=== PATIENT | female | born 1940 | race Asian ===

== ENCOUNTER 2017-01-29 13:57 | Inpatient (IN) | payer MEDICARE, OTHER ==
[~2017-01-29] VITALS: Ht 144.8 cm; Wt 48.1 kg
[2017-01-29 16:00] VITALS: BP 170/63
[2017-01-29 16:40] VITALS: BP 170/63
--- NOTE | 2017-01-29 18:51 | HP ---
ADMIT DATE: 01/29/2017 CHIEF COMPLAINT: Mental status change, left-sided weakness. HISTORY OF PRESENT ILLNESS: The patient is a pleasant elderly female who speaks broken Kiswahili. Basically, she presented to the ER at [facility] with stroke symptoms. The ER physician called me. She does have extreme left-sided weakness. She is kind of compulsive. She is moving the right arm. I discussed the case with the ER physician. We are going to admit the patient as a direct admit here to our facility. She is currently examined in room 667. PAST MEDICAL HISTORY: Difficult to obtain. The patient really does not speak a lot. I have looked through the records, I do not see a lot. In fact, she has hypertension, hyperlipidemia, constipation. ALLERGIES: None. FAMILY HISTORY: Unknown. SOCIAL HISTORY: I think she facility. She does not drink, smoke or take drugs. MEDICATIONS: Reviewed, please refer to the MRAD. REVIEW OF SYSTEMS: Unobtainable, the patient is too confused. PHYSICAL EXAMINATION: VITAL SIGNS: Temperature afebrile, pulse 67, respirations 21, blood pressure 114/91. GENERAL: She is sleeping. She awakens, she starts moving the right side. She is kind of impulsive. HEART: Distant S1, S2. LUNGS: Clear. ABDOMEN: Soft. EXTREMITIES: No edema. The right hand is deformed. She only has the thumb, the other fingers appears to be amputated. ENDOCRINE: No thyromegaly. LYMPHATICS: No cervical nodes. HEMATOPOIETIC: No bruising. NEUROLOGICAL: She is impulsive. She is moving on the right side, but she does not move the left side. LABORATORY DATA: Pending. ASSESSMENT AND PLAN: Stroke. The patient has been admitted. We are consulting Neurology, Physical Therapy and Occupational Therapy. We will resume her home meds, cardiac monitoring, IV fluids, speech therapy, jail evaluation. ALF PROGNOSIS: Guarded. ROSA FOX DO DR: HANNY/manolo JOB#: [id number] / [id number]
[2017-01-29 19:51] VITALS: BP 168/61
[2017-01-29] MEDS ORDERED: ASPI325T4 PO (19:55)
[2017-01-29] MEDS ORDERED: AMLO10TA2 PO (19:55)
[2017-01-29] MEDS ORDERED: METO50TA2 PO (19:55)
[2017-01-29 23:16] VITALS: BP 169/62
[2017-01-30 02:57] VITALS: BP 165/66
[2017-01-30 07:00] VITALS: BP 131/65
[2017-01-30] MEDS: ASPIRIN 325 MG TABLET PO SCH (08:00)
--- NOTE | 2017-01-30 10:13 | PDOC2 ---
NEUROLOGY CONSULT Date of Admission Date of Admission DATE: 01/30/17 TIME: 10:06 Reason for Consult Reason for Consult: Stroke Referring Physician Referring Physician: Dr. Ng PCP: Dr. Henriquez Source Source: Caregiver, Chart review, Patient History of Present Illness History of Present Illness The patient is a 76-year-old right-handed female admitted for a stroke. She was brought into the [facility] emergency department. She was at [facility] last month with similar symptoms. She had generalized weakness. I reviewed the records. CT scan showed old infarcts. There was possibly a subacute left temporal infarct. Echocardiogram and carotid Dopplers were negative. She did not receive an MRI. According to her son, she at baseline gets around on her own , does not drive, needs help with finances, but otherwise is fairly independent. He doesn't think she has the cognitive problems. 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 There is no history of seizure or head injury. 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 Oophorectomy) Family History Family History: No pertinent hx Social History Social History , non-smoker, nondrinker Current Medications Current Medications Current Medications Aspirin (Geo Aspirin) 325 mg DAILYWBKFT PO Last administered on 01/30/17t 08: 00; Start 01/30/17 at 08:00 Active Scripts Active Reported Aspirin 325 Mg Tablet 1 Tab PO DAILY Metoprolol Tartrate 50 Mg Tablet 1 Tab PO DAILY Amlodipine Besylate 10 Mg Tablet 10 Mg PO DAILY Allergies Allergies: Coded Allergies: No Known Drug Allergies (Unverified , 01/29/17) ROS Review of System Negative for fevers, chills, weight loss, shortness of breath, chest pain, indigestion, hematochezia, melena, dysuria. Full 14-point review systems is negative. Physical Exam Physical Examination PHYSICAL EXAMINATION: Vital signs: see above. General appearance is normal and in no acute distress. HEENT: Normocephalic and nontraumatic. Eyes, nose, ears, and throat are unremarkable. Neck is supple. No lymphadenopathy. No bruits are heard over the carotid artery. No crepitus. Extremities: several digits missing from right-hand NEUROLOGIC: She can tell me her name, but not the date or location. She tends to perseverate. She has trouble with naming and repetition. Cranial nerve examination reveals full visual cabral to threat, equally reactive pupils, and intact extraocular movements. There is no facial asymmetry. Palate elevates and tongue protrudes in the midline. Reflexes are one plus with flexor plantar responses. There are bilateral grasps reflexes. She moves all extremities for me with normal tone and bulk. I see no asymmetry. She would not let me check her gait and was not cooperative with cerebellar testing. She reacts to pinprick in all 4 extremities. Vitals VITALS Vital Signs Date Time Temp Pulse Resp B/P Pulse Ox O2 Delivery O2 Flow Rate FiO2 01/30/17 07:00 97.5 81 18 131/65 93 Room Air 97.5 Images Images I reviewed records from [facility] CT head, 01/08:1. Old right temporoparietal and left basal ganglia region infarcts. 2. No acute intracranial abnormality is detected. Carotid Dopplers, 01/09, normal Echocardiogram, 01/09: LEFT VENTRICLE The left ventricle is normal size. There is normal left ventricular wall thickness. Left ventricle systolic function is normal. The Ejection Fraction is 65-70%. There is normal LV segmental wall motion. Tissue Doppler imaging reveals mild left ventricular diastolic dysfunction. RIGHT VENTRICLE The right ventricle is normal size. The right ventricular systolic function is normal. ATRIA The left atrium size is normal. The right atrium size is normal. The interatrial septum is intact with no evidence for an atrial septal defect or patent foramen ovale as noted on 2-D or Doppler imaging. AORTIC VALVE The aortic valve is mildly calcified. The aortic valve is trileaflet. Doppler and Color Flow revealed no significant aortic regurgitation. There is no significant aortic valvular stenosis. MITRAL VALVE Mitral annular calcification is mild. There is no mitral valve stenosis. Doppler and Color Flow revealed mild mitral regurgitation. TRICUSPID VALVE The tricuspid valve is normal in structure and function. Doppler and Color Flow revealed trace tricuspid regurgitation. The PA pressure was estimated at 17 mmHg. There is no tricuspid valve stenosis. PULMONIC VALVE The pulmonic valve is not well visualized. Doppler and Color Flow revealed no pulmonic valvular regurgitation. There is no pulmonic valvular stenosis. GREAT VESSELS The aortic root is normal in size. The ascending aorta is normal in size. Normal pulmonary venous flow (Doppler). The IVC is normal in size and collapses >50% with inspiration. PERICARDIAL EFFUSION There is no evidence of significant pericardial effusion.Critical NotificationCritical Value: No<Conclusion>Left ventricle systolic function is normal. The Ejection Fraction is 65-70%.There is normal LV segmental wall motion. CT head, 01/29: IMPRESSION: 1. Old right temporoparietal and left basal ganglia region infarcts. 2. New small deep white matter lucency in the left lateral occipital region is likely due to a subacute infarct. Vasogenic edema due to an occult underlying neoplasm or infectious process is less likely. 3. No evidence of acute intracranial hemorrhage Assessment/Plan Assessment/Plan Impression: Examination is non-focal, but is concerning for dementia although the son says this is an acute change. 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 Central nervous system infection and ongoing epileptic seizure activity is much less likely. There are no obvious metabolic derangements. Recommendations: No need to repeat previous tests Brain MRI Laboratory studies Rehabilitation modalities I discussed my findings with the patient's son. Thank you for letting me help with the patient's care. YFN MADDOX MD Jan 30, 2017 10:13
[2017-01-30 10:44] VITALS: BP 129/74
[2017-01-30 11:15] LABS: BASO # 0.1 x10^3/uL (0.0-0.2); BASO % 1 % (0-3); EOS % 2 % (0-3); HEMATOCRIT 35.6 % (36.0-47.0); HEMOGLOBIN 11.9 g/dL (12.0-15.5); LYMPH # 1.7 x10^3/uL (1.0-4.8); LYMPH % 20 % (24-48); MEAN CORPUSCULAR HEMOGLOBIN 27 pg (25-35); MEAN CORPUSCULAR HGB CONC 34 g/dL (31-37); MEAN CORPUSCULAR VOLUME 81 fL (79-100); MONO % 5 % (0-9); NEUT % 72 % (31-73); PLATELET COUNT 300 x10^3/uL (140-400); RED BLOOD COUNT 4.39 x10^6/uL (3.50-5.40); RED CELL DISTRIBUTION WIDTH 14.1 % (11.5-14.5); WHITE BLOOD COUNT 8.8 x10^3/uL (4.0-11.0)
--- NOTE | 2017-01-30 11:25 | PDOC ---
PROGRESS NOTES Chief Complaint Chief Complaint A/P Acute mental state changes, seizures vs CVA vs Dementia Plan MRI pending PT/OT NPO Neurology following work up at [place] results reviewed. History of Present Illness History of Present Illness seen with PT not following commands confused. Vitals Vitals Vital Signs Date Time Temp Pulse Resp B/P Pulse Ox O2 Delivery O2 Flow Rate FiO2 01/30/17 10:44 97.6 80 18 129/74 92 Room Air 97.6 Physical Exam General: Alert, Other (non coopertive) Heart: Normal S1, Normal S2 Lungs: Clear Abdomen: Normal bowel sounds Labs LABS Laboratory Tests Test 01/30/17 10:40 White Blood Count 8.8x10^3/uL (4.0-11.0) Red Blood Count 4.39x10^6/uL (3.50-5.40) Hemoglobin 11.9g/dL (12.0-15.5) Hematocrit 35.6% (36.0-47.0) Mean Corpuscular Volume 81fL (79-100) Mean Corpuscular Hemoglobin 27pg (25-35) Mean Corpuscular Hemoglobin Concent 34g/dL (31-37) Red Cell Distribution Width 14.1% (11.5-14.5) Platelet Count 300x10^3/uL (140-400) Neutrophils (%) (Auto) 72% (31-73) Lymphocytes (%) (Auto) 20% (24-48) Monocytes (%) (Auto) 5% (0-9) Eosinophils (%) (Auto) 2% (0-3) Basophils (%) (Auto) 1% (0-3) Neutrophils # (Auto) 6.4x10^3uL (1.8-7.7) Lymphocytes # (Auto) 1.7x10^3/uL (1.0-4.8) Monocytes # (Auto) 0.5x10^3/uL (0.0-1.1) Eosinophils # (Auto) 0.2x10^3/uL (0.0-0.7) Basophils # (Auto) 0.1x10^3/uL (0.0-0.2) Comment Review of Relevant I have reviewed the following items jayashree (where applicable) has been applied. Labs Laboratory Tests Test 01/30/17 10:40 White Blood Count 8.8x10^3/uL (4.0-11.0) Red Blood Count 4.39x10^6/uL (3.50-5.40) Hemoglobin 11.9g/dL (12.0-15.5) Hematocrit 35.6% (36.0-47.0) Mean Corpuscular Volume 81fL (79-100) Mean Corpuscular Hemoglobin 27pg (25-35) Mean Corpuscular Hemoglobin Concent 34g/dL (31-37) Red Cell Distribution Width 14.1% (11.5-14.5) Platelet Count 300x10^3/uL (140-400) Neutrophils (%) (Auto) 72% (31-73) Lymphocytes (%) (Auto) 20% (24-48) Monocytes (%) (Auto) 5% (0-9) Eosinophils (%) (Auto) 2% (0-3) Basophils (%) (Auto) 1% (0-3) Neutrophils # (Auto) 6.4x10^3uL (1.8-7.7) Lymphocytes # (Auto) 1.7x10^3/uL (1.0-4.8) Monocytes # (Auto) 0.5x10^3/uL (0.0-1.1) Eosinophils # (Auto) 0.2x10^3/uL (0.0-0.7) Basophils # (Auto) 0.1x10^3/uL (0.0-0.2) Laboratory Tests Test 01/30/17 10:40 White Blood Count 8.8x10^3/uL (4.0-11.0) Red Blood Count 4.39x10^6/uL (3.50-5.40) Hemoglobin 11.9g/dL (12.0-15.5) Hematocrit 35.6% (36.0-47.0) Mean Corpuscular Volume 81fL (79-100) Mean Corpuscular Hemoglobin 27pg (25-35) Mean Corpuscular Hemoglobin Concent 34g/dL (31-37) Red Cell Distribution Width 14.1% (11.5-14.5) Platelet Count 300x10^3/uL (140-400) Neutrophils (%) (Auto) 72% (31-73) Lymphocytes (%) (Auto) 20% (24-48) Monocytes (%) (Auto) 5% (0-9) Eosinophils (%) (Auto) 2% (0-3) Basophils (%) (Auto) 1% (0-3) Neutrophils # (Auto) 6.4x10^3uL (1.8-7.7) Lymphocytes # (Auto) 1.7x10^3/uL (1.0-4.8) Monocytes # (Auto) 0.5x10^3/uL (0.0-1.1) Eosinophils # (Auto) 0.2x10^3/uL (0.0-0.7) Basophils # (Auto) 0.1x10^3/uL (0.0-0.2) Medications Current Medications Aspirin ([employer]works Aspirin) 325 mg DAILYWBKFT PO Last administered on 01/30/17 08: 00; Start 01/30/17 at 08:00 Active Scripts Active Reported Aspirin 325 Mg Tablet 1 Tab PO DAILY Metoprolol Tartrate 50 Mg Tablet 1 Tab PO DAILY Amlodipine Besylate 10 Mg Tablet 10 Mg PO DAILY Vitals/I & O Vital Sign - Last 24 Hours 01/29/17 01/29/17 01/29/17 01/29/17 16:00 16:40 19:51 20:00 Temp 97.9 97.9 97.9 97.9 97.9 97.9 Pulse 75 75 68 Resp 18 18 20 B/P 170/63 170/63 168/61 Pulse Ox 94 94 97 O2 Delivery Room Air Room Air 01/29/17 01/30/17 01/30/17 01/30/17 23:16 02:57 07:00 10:44 Temp 98.2 97.9 97.5 97.6 98.2 97.9 97.5 97.6 Pulse 76 75 81 80 Resp 16 16 18 18 B/P 169/62 165/66 131/65 129/74 Pulse Ox 95 95 93 92 O2 Delivery Room Air Room Air Room Air Room Air Intake and Output 01/29/17 01/29/17 01/30/17 15:00 23:00 07:00 Intake Total 100 ml Balance 100 ml BERNA NGUYEN MD Jan 30, 2017 11:25
[2017-01-30 11:32] LABS: ALBUMIN/GLOBULIN RATIO 0.7 (1.0-1.7); CALCIUM 8.9 mg/dL (8.5-10.1); CREATININE 1.5 mg/dL (0.6-1.0); GFR 33.8; POTASSIUM 3.5 mmol/L (3.5-5.1); TOTAL BILIRUBIN 0.4 mg/dL (0.2-1.0); TOTAL PROTEIN 7.1 g/dL (6.4-8.2)
[2017-01-30 11:55] LABS: FOLATE 11.63 ng/ml (3.2-20.0)
--- NOTE | 2017-01-30 13:13 | RAD ---
PROCEDURE MRI brain without contrast. HISTORY Altered mental status, weakness TECHNIQUE Multiplanar, multi sequential, non contrast MR imaging was performed of the brain. COMPARISON No previous similar exam available. FINDINGS There is motion degradation. There is fairly large focus of restricted diffusion of the left temporal lobe on the order of approximately 3 centimeters, a few other adjacent smaller foci present. There is also a long linear focus of restricted diffusion of the right frontal lobe on the order of 4.7 centimeters AP. There is separate tiny focus of restricted diffusion of the right parietal white matter. There is T2 and FLAIR hyperintense signal abnormality associated with the sites of restricted diffusion. There is no restricted diffusion of the posterior fossa. Ventricular size is stable. There is no midline shift or extra-axial fluid collection. There is a large area of encephalomalacia of the right parietal temporal lobes with cortical involvement, associated gliosis signified by T2 and FLAIR hyperintense signal abnormality. There is no significant hemosiderin deposition of the brain parenchyma. There is old large old infarct of the left basal ganglia with associated gliosis, tiny focus more posteriorly. There is other scattered mild T2 and FLAIR hyperintense signal abnormality of the supratentorial white matter bilaterally. There is small focus of hemosiderin deposition of the right basal ganglia, also tiny focus on the left. There is preservation of the major arterial intracranial flow voids at the skull base other than tiny caliber left vertebral artery flow void. There has been lens surgery bilaterally. There is very minimal left maxillary sinus mucosal thickening, also minimally of the right sphenoid sinus. Frontal sinus is not pneumatized. Mastoid air cells are not significantly pneumatized. Cerebellar tonsils are normal in location. There is adequate preservation of marrow signal of the clivus. There is no significant abnormality of the pineal gland or pituitary gland IMPRESSION 1. There are recent, likely early subacute infarcts of the right frontal lobe and also centered in the left temporal lobe. Critical results were called to patient's nurse Amaris January 30, 2017 at 13:09, to inform doctor of findings. Given bilateral involvement, embolic source should be considered. 2. There is a large old infarct of the right parietal temporal lobes with associated gliosis, cortical involvement. There is also large old infarct of the left basal ganglia. Other scattered T2 and FLAIR hyperintense signal abnormality of the supratentorial white matter is nonspecific although probably due to chronic microvascular ischemic disease. Electronically signed by: Mike Barrera MD (Jan 30, 2017 13:11:14)
[2017-01-30 14:55] VITALS: BP 119/62
[2017-01-30] MEDS: IV NORMAL SALINE 1000ML BAG 1,000 ML IV SCH (15:00)
[2017-01-30] MEDS ORDERED: LIDOCAINE 2% VISCOUS 15 ML SOLUTION. MM ONE (15:15)
[2017-01-30] MEDS ORDERED: 0.9 % SODIUM CHLORIDE 10 ML DISP.SYRIN. IV PRN (15:15)
[2017-01-30] MEDS ORDERED: LIDOCAINE 2% TOPICAL JELLY 5GM TUBE. TP ONE (15:15)
[2017-01-30] MEDS ORDERED: BENZOCAINE ONE 20% MUCOSAL SPRAY. MM (15:15)
--- NOTE | 2017-01-30 18:45 | PDOC ---
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 Due to cognitive impairment, discussed indication along with risk/benefits with sonAntonio. Is agreeable to proceed. Attempted to contact [facility] nascimento but unable to reach. Will proceed with IRENE in am. ANNALISE GARAY APRN Jan 30, 2017 18:45
[2017-01-30 19:35] VITALS: BP 164/52
[2017-01-30 23:45] VITALS: BP 156/41
[2017-01-31] VITALS (15 sets, daily range): BP systolic 129–188; BP diastolic 60–77
[2017-01-31] MEDS: IV NORMAL SALINE 1000ML BAG 1,000 ML IV SCH ×3 (05:03→23:50)
[2017-01-31 05:32] LABS: CHOLESTEROL/HDL RATIO 3.7
[2017-01-31] MEDS ORDERED: LIDOCAINE 2% TOPICAL JELLY 5GM TUBE. TP ONE (06:00)
[2017-01-31] MEDS ORDERED: LIDOCAINE 2% VISCOUS 15 ML SOLUTION. MM ONE (06:00)
[2017-01-31] MEDS ORDERED: BENZOCAINE ONE 20% MUCOSAL SPRAY. MM (06:00)
[2017-01-31] MEDS: ASPIRIN 325 MG TABLET PO SCH (08:00)
--- NOTE | 2017-01-31 11:24 | PDOC ---
PROGRESS NOTES Chief Complaint Chief Complaint A/P Multiple subacute infarcts right frontal lobe and left temporal lobe. Physical Debility due to above Vascular Dementia worsening. Accelerate HTN Plan IV hydralazine Metoprolol BID PT/OT IRENE today Aspirin SW consult for placement PT/OT speech and swallow Evaluation neurology and cardiology following prognosis poor/guarded. History of Present Illness History of Present Illness lying on bed able to swallow food no acute events. IRENE Today Vitals Vitals Vital Signs Date Time Temp Pulse Resp B/P Pulse Ox O2 Delivery O2 Flow Rate FiO2 01/31/17 11:15 98.1 80 18 166/60 99 Room Air 98.1 Physical Exam General: Alert, Other (alert, able to answer for few questions. ) Heart: Regular rate, Normal S1, Normal S2 Lungs: Clear Abdomen: Normal bowel sounds Extremities: No clubbing, No edema Labs LABS Laboratory Tests Test 01/31/17 04:50 Triglycerides Level 114mg/dL (0-150) Cholesterol Level 210mg/dL (0-200) LDL Cholesterol, Calculated 130mg/dL (0-100) VLDL Cholesterol, Calculated 23mg/dL (0-40) HDL Cholesterol 57mg/dL (40-60) Cholesterol/HDL Ratio 3.7 Comment Review of Relevant I have reviewed the following items jayashree (where applicable) has been applied. Labs Laboratory Tests Test 01/30/17 10:40 01/31/17 04:50 White Blood Count 8.8x10^3/uL (4.0-11.0) Red Blood Count 4.39x10^6/uL (3.50-5.40) Hemoglobin 11.9g/dL (12.0-15.5) Hematocrit 35.6% (36.0-47.0) Mean Corpuscular Volume 81fL (79-100) Mean Corpuscular Hemoglobin 27pg (25-35) Mean Corpuscular Hemoglobin Concent 34g/dL (31-37) Red Cell Distribution Width 14.1% (11.5-14.5) Platelet Count 300x10^3/uL (140-400) Neutrophils (%) (Auto) 72% (31-73) Lymphocytes (%) (Auto) 20% (24-48) Monocytes (%) (Auto) 5% (0-9) Eosinophils (%) (Auto) 2% (0-3) Basophils (%) (Auto) 1% (0-3) Neutrophils # (Auto) 6.4x10^3uL (1.8-7.7) Lymphocytes # (Auto) 1.7x10^3/uL (1.0-4.8) Monocytes # (Auto) 0.5x10^3/uL (0.0-1.1) Eosinophils # (Auto) 0.2x10^3/uL (0.0-0.7) Basophils # (Auto) 0.1x10^3/uL (0.0-0.2) Erythrocyte Sedimentation Rate 41 (0-25) Sodium Level 144mmol/L (136-145) Potassium Level 3.5mmol/L (3.5-5.1) Chloride Level 107mmol/L (98-107) Carbon Dioxide Level 27mmol/L (21-32) Anion Gap 10 (6-14) Blood Urea Nitrogen 18mg/dL (7-20) Creatinine 1.5mg/dL (0.6-1.0) Estimated GFR (Cockcroft-Gault) 33.8 BUN/Creatinine Ratio 12 (6-20) Glucose Level 142mg/dL (70-99) Calcium Level 8.9mg/dL (8.5-10.1) Total Bilirubin 0.4mg/dL (0.2-1.0) Aspartate Amino Transf (AST/SGOT) 21U/L (15-37) Alanine Aminotransferase (ALT/SGPT) 15U/L (14-59) Alkaline Phosphatase 92U/L (46-116) Total Protein 7.1g/dL (6.4-8.2) Albumin 3.0g/dL (3.4-5.0) Albumin/Globulin Ratio 0.7 (1.0-1.7) Vitamin B12 Level 469pg/mL (247-911) Serum Folate 11.63ng/ml (3.2-20.0) Triglycerides Level 114mg/dL (0-150) Cholesterol Level 210mg/dL (0-200) LDL Cholesterol, Calculated 130mg/dL (0-100) VLDL Cholesterol, Calculated 23mg/dL (0-40) HDL Cholesterol 57mg/dL (40-60) Cholesterol/HDL Ratio 3.7 Laboratory Tests Test 01/31/17 04:50 Triglycerides Level 114mg/dL (0-150) Cholesterol Level 210mg/dL (0-200) LDL Cholesterol, Calculated 130mg/dL (0-100) VLDL Cholesterol, Calculated 23mg/dL (0-40) HDL Cholesterol 57mg/dL (40-60) Cholesterol/HDL Ratio 3.7 Medications Current Medications Aspirin 325 mg 325 mg DAILYWBKFT PO Last administered on 01/30/17 08:00; Start 01/30/17 at 08:00 Sodium Chloride (Iv Sodium Chloride 0.9% 1000ml Bag) 1,000 ml @ 75 mls/hr [id number] IV Last administered on 01/31/17 05:03; Start 01/30/17 at 15:00 Sodium Chloride (Normal Saline Flush) 10 ml QSHIFT PRN IV AFTER MEDS AND BLOOD DRAWS; Start 01/30/17 at 15:15 Lidocaine HCl (Xylocaine 2% Topical 5gm Tube) 1 braydon 1X ONCE TP ; Start at 15:15; Stop 01/30/17 at 15:16; Status DC Lidocaine HCl (Viscous Lidocaine) 15 ml 1X ONCE MM ; Start 01/30/17 at 15:15; Stop 01/30/17 at 15:16; Status DC Benzocaine (Hurricaine One) 1 spray 1X ONCE MM ; Start 01/30/17 at 15:15; Stop 01/30/17 at 15:16; Status DC Lidocaine HCl (Xylocaine 2% Topical 5gm Tube) 1 braydon 1X ONCE TP ; Start at 06:00; Stop 01/31/17 at 06:01; Status DC Lidocaine HCl (Viscous Lidocaine) 15 ml 1X ONCE MM ; Start 01/31/17 at 06:00; Stop 01/31/17 at 06:01; Status DC Benzocaine (Hurricaine One) 1 spray 1X ONCE MM ; Start 01/31/17 at 06:00; Stop 01/31/17 at 06:01; Status DC Active Scripts Active Reported Aspirin 325 Mg Tablet 1 Tab PO DAILY Metoprolol Tartrate 50 Mg Tablet 1 Tab PO DAILY Amlodipine Besylate 10 Mg Tablet 10 Mg PO DAILY Vitals/I & O Vital Sign - Last 24 Hours 01/30/17 01/30/17 01/30/17 01/30/17 14:55 19:35 20:00 23:45 Temp 99.7 98.1 97.7 99.7 98.1 97.7 Pulse 80 63 66 Resp B/P 119/62 164/52 156/41 Pulse Ox 97 96 96 O2 Delivery Room Air Room Air Room Air Room Air 01/31/17 01/31/17 01/31/17 01/31/17 03:45 07:58 08:00 11:15 Temp 98.1 97.7 98.1 98.1 97.7 98.1 Pulse 76 74 80 Resp B/P 145/67 179/73 166/60 Pulse Ox 96 96 99 O2 Delivery Room Air Room Air Room Air Room Air Intake and Output 01/30/17 01/30/17 01/31/17 15:00 23:00 07:00 Intake Total 250 ml Output Total 400 ml Balance -150 ml BERNA NGUYEN MD Jan 31, 2017 11:24
--- NOTE | 2017-01-31 12:01 | PDOC ---
PROGRESS NOTES Assessment Multiple subacute strokes, leading to [id number] state. Cardiac emboli suspected. Plan I ordered a transesophageal echocardiogram No need to repeat prior studies done last month Rehabilitation modalities Aspirin for now Subjective No complaints Objective Vital Signs Date Time Temp Pulse Resp B/P Pulse Ox O2 Delivery O2 Flow Rate FiO2 01/31/17 11:15 98.1 80 18 166/60 99 Room Air 98.1 Intake and Output 01/31/17 07:00 Intake Total 250 ml Output Total 400 ml Balance -150 ml Intake Oral 250 ml Output Urine Total 400 ml # Voids 4 PHYSICAL EXAM Alert. Knows her name, has aphasia PERRL. EOMI. CN: no focal findings. Muscle tone: normal. Muscle strength: 4/5 DTR: 1+ Plantar reflex: flexor Gait: not examined in bed. Sensory exam: no abnormal findings. No cerebellar signs elicited. Review of Relevant I have reviewed the following items jayashree (where applicable) has been applied. Labs Laboratory Tests Test 01/30/17 10:40 01/31/17 04:50 White Blood Count 8.8x10^3/uL (4.0-11.0) Red Blood Count 4.39x10^6/uL (3.50-5.40) Hemoglobin 11.9g/dL (12.0-15.5) Hematocrit 35.6% (36.0-47.0) Mean Corpuscular Volume 81fL (79-100) Mean Corpuscular Hemoglobin 27pg (25-35) Mean Corpuscular Hemoglobin Concent 34g/dL (31-37) Red Cell Distribution Width 14.1% (11.5-14.5) Platelet Count 300x10^3/uL (140-400) Neutrophils (%) (Auto) 72% (31-73) Lymphocytes (%) (Auto) 20% (24-48) Monocytes (%) (Auto) 5% (0-9) Eosinophils (%) (Auto) 2% (0-3) Basophils (%) (Auto) 1% (0-3) Neutrophils # (Auto) 6.4x10^3uL (1.8-7.7) Lymphocytes # (Auto) 1.7x10^3/uL (1.0-4.8) Monocytes # (Auto) 0.5x10^3/uL (0.0-1.1) Eosinophils # (Auto) 0.2x10^3/uL (0.0-0.7) Basophils # (Auto) 0.1x10^3/uL (0.0-0.2) Erythrocyte Sedimentation Rate 41 (0-25) Sodium Level 144mmol/L (136-145) Potassium Level 3.5mmol/L (3.5-5.1) Chloride Level 107mmol/L (98-107) Carbon Dioxide Level 27mmol/L (21-32) Anion Gap 10 (6-14) Blood Urea Nitrogen 18mg/dL (7-20) Creatinine 1.5mg/dL (0.6-1.0) Estimated GFR (Cockcroft-Gault) 33.8 BUN/Creatinine Ratio 12 (6-20) Glucose Level 142mg/dL (70-99) Calcium Level 8.9mg/dL (8.5-10.1) Total Bilirubin 0.4mg/dL (0.2-1.0) Aspartate Amino Transf (AST/SGOT) 21U/L (15-37) Alanine Aminotransferase (ALT/SGPT) 15U/L (14-59) Alkaline Phosphatase 92U/L (46-116) Total Protein 7.1g/dL (6.4-8.2) Albumin 3.0g/dL (3.4-5.0) Albumin/Globulin Ratio 0.7 (1.0-1.7) Vitamin B12 Level 469pg/mL (247-911) Serum Folate 11.63ng/ml (3.2-20.0) Triglycerides Level 114mg/dL (0-150) Cholesterol Level 210mg/dL (0-200) LDL Cholesterol, Calculated 130mg/dL (0-100) VLDL Cholesterol, Calculated 23mg/dL (0-40) HDL Cholesterol 57mg/dL (40-60) Cholesterol/HDL Ratio 3.7 Laboratory Tests Test 01/31/17 04:50 Triglycerides Level 114mg/dL (0-150) Cholesterol Level 210mg/dL (0-200) LDL Cholesterol, Calculated 130mg/dL (0-100) VLDL Cholesterol, Calculated 23mg/dL (0-40) HDL Cholesterol 57mg/dL (40-60) Cholesterol/HDL Ratio 3.7 Medications Current Medications Aspirin 325 mg 325 mg [id number] PO Last administered on 01/30/17 08:00; Start 01/30/17 at 08:00 Sodium Chloride (Iv Sodium Chloride 0.9% 1000ml Bag) 1,000 ml @ 75 mls/hr [id number] IV Last administered on 01/31/17 05:03; Start 01/30/17 at 15:00 Sodium Chloride (Normal Saline Flush) 10 ml QSHIFT PRN IV AFTER MEDS AND BLOOD DRAWS; Start 01/30/17 at 15:15 Lidocaine HCl (Xylocaine 2% Topical 5gm Tube) 1 braydon 1X ONCE TP ; Start at 15:15; Stop 01/30/17 at 15:16; Status DC Lidocaine HCl (Viscous Lidocaine) 15 ml 1X ONCE MM ; Start 01/30/17 at 15:15; Stop 01/30/17 at 15:16; Status DC Benzocaine (Hurricaine One) 1 spray 1X ONCE MM ; Start 01/30/17 at 15:15; Stop 01/30/17 at 15:16; Status DC Lidocaine HCl (Xylocaine 2% Topical 5gm Tube) 1 braydon 1X ONCE TP ; Start at 06:00; Stop 01/31/17 at 06:01; Status DC Lidocaine HCl (Viscous Lidocaine) 15 ml 1X ONCE MM ; Start 01/31/17 at 06:00; Stop 01/31/17 at 06:01; Status DC Benzocaine (Hurricaine One) 1 spray 1X ONCE MM ; Start 01/31/17 at 06:00; Stop 01/31/17 at 06:01; Status DC Active Scripts Active Reported Aspirin 325 Mg Tablet 1 Tab PO DAILY Metoprolol Tartrate 50 Mg Tablet 1 Tab PO DAILY Amlodipine Besylate 10 Mg Tablet 10 Mg PO DAILY Vitals/I & O Vital Sign - Last 24 Hours 01/30/17 01/30/17 01/30/17 01/30/17 14:55 19:35 20:00 23:45 Temp 99.7 98.1 97.7 99.7 98.1 97.7 Pulse 80 63 66 Resp 18 16 16 B/P 119/62 164/52 156/41 Pulse Ox 97 96 96 O2 Delivery Room Air Room Air Room Air Room Air 01/31/17 01/31/17 01/31/17 01/31/17 03:45 07:58 08:00 11:15 Temp 98.1 97.7 98.1 98.1 97.7 98.1 Pulse 76 74 80 Resp 16 16 18 B/P 145/67 179/73 166/60 Pulse Ox 96 96 99 O2 Delivery Room Air Room Air Room Air Room Air Intake and Output 01/30/17 01/30/17 01/31/17 15:00 23:00 07:00 Intake Total 250 ml Output Total 400 ml Balance -150 ml Images Brain MRI: FINDINGS There is motion degradation. There is fairly large focus of restricted diffusion of the left temporal lobe on the order of approximately 3 centimeters, a few other adjacent smaller foci present. There is also a long linear focus of restricted diffusion of the right frontal lobe on the order of 4.7 centimeters AP. There is separate tiny focus of restricted diffusion of the right parietal white matter. There is T2 and FLAIR hyperintense signal abnormality associated with the sites of restricted diffusion. There is no restricted diffusion of the posterior fossa. Ventricular size is stable. There is no midline shift or extra-axial fluid collection. There is a large area of encephalomalacia of the right parietal temporal lobes with cortical involvement, associated gliosis signified by T2 and FLAIR hyperintense signal abnormality. There is no significant hemosiderin deposition of the brain parenchyma. There is old large old infarct of the left basal ganglia with associated gliosis, tiny focus more posteriorly. There is other scattered mild T2 and FLAIR hyperintense signal abnormality of the supratentorial white matter bilaterally. There is small focus of hemosiderin deposition of the right basal ganglia, also tiny focus on the left. There is preservation of the major arterial intracranial flow voids at the skull base other than tiny caliber left vertebral artery flow void. There has been lens surgery bilaterally. There is very minimal left maxillary sinus mucosal thickening, also minimally of the right sphenoid sinus. Frontal sinus is not pneumatized. Mastoid air cells are not significantly pneumatized. Cerebellar tonsils are normal in location. There is adequate preservation of marrow signal of the clivus. There is no significant abnormality of the pineal gland or pituitary gland IMPRESSION 1. There are recent, likely early subacute infarcts of the right frontal lobe and also centered in the left temporal lobe. Critical results were called to patient's nurse Amaris January 30, 2017 at 13:09, to inform doctor of findings. Given bilateral involvement, embolic source should be considered. 2. There is a large old infarct of the right parietal temporal lobes with associated gliosis, cortical involvement. There is also large old infarct of the left basal ganglia. Other scattered T2 and FLAIR hyperintense signal abnormality of the supratentorial white matter is nonspecific although probably due to chronic microvascular ischemic disease. YFN MADDOX MD Jan 31, 2017 12:01
[2017-01-31] MEDS ORDERED: BENZOCAINE ONE 20% MUCOSAL SPRAY. (13:32)
[2017-01-31] MEDS ORDERED: LIDOCAINE 2% VISCOUS 15 ML SOLUTION. ONE (13:32)
[2017-01-31] MEDS ORDERED: LIDOCAINE 2% TOPICAL JELLY 30GM TUBE. TP ONE (13:33)
[2017-01-31] MEDS: IV RINGERS,LACTATED 1000ML 1,000 ML IV SCH ×2 (14:00→23:50)
[2017-01-31] MEDS: hydrALAZINE 20 MG/ML VIAL. IVP PRN (15:38)
[2017-01-31] MEDS ORDERED: METOPROLOL TART IMMED RELEASE 25 MG TABLET PO SCH ×2 (17:30→21:00)
--- NOTE | 2017-01-31 18:51 | CARD ---
APPROVED REPORT EXAM: Transesophageal echocardiogram with color flow Doppler. INDICATION CVA/TIA Echo Enhancing Agent Indication: Rule Out Septal Defect Agent/Amount Used: Agitated Saline 10mL Reason For Test : Rule out cardiac source of emboli. PROCEDURE After obtaining informed consent, patient underwent transesophageal echo in the PACU. Type of Sedation : General Anesthesia Sedation was provided by anesthesiologist, see EMR for medications administered. Transesophageal probe was inserted and advanced into esophagus by Amuary Acuña MD. Echo enhancement indication: R/O Septal defect. Echo enhancement agent administered: Agitated Saline The IRENE was performed without complications. Throughout the procedure, the blood pressure, pulse oximetry, cardiac rhythm, and rate were monitored . LEFT VENTRICLE The left ventricle is normal size. There is normal left ventricular wall thickness. Left ventricle sy stolic function is normal. The Ejection Fraction is 55-60%. There is normal LV segmental wall motion. RIGHT VENTRICLE The right ventricle is normal size. The right ventricular systolic function is normal. ATRIA The left atrium size is normal. The right atrium size is normal. The interatrial septum is intact wit h no evidence for an atrial septal defect or patent foramen ovale as noted on 2-D or Doppler imaging. Injection of bubbles documented no interatrial shunt. There is no thrombus noted in the left atrial appendage. AORTIC VALVE The aortic valve is normal in structure and function. The aortic valve is trileaflet. Doppler and Col or Flow revealed no significant aortic regurgitation. There is no significant aortic valvular stenosi s. MITRAL VALVE The mitral valve is normal in structure and function. There is no mitral valve stenosis. Doppler and Color Flow revealed mild mitral regurgitation. TRICUSPID VALVE The tricuspid valve is normal in structure and function. Doppler and Color Flow revealed no tricuspid valve regurgitation noted. There is no tricuspid valve stenosis. PULMONIC VALVE The pulmonary valve is normal in structure and function. Doppler and Color Flow revealed no pulmonic valvular regurgitation. There is no pulmonic valvular stenosis. GREAT VESSELS The aortic root is normal in size. The ascending aorta is normal in size. The IVC was visualized and appears normal in size. The SVC was visualized and appears normal in size. PERICARDIAL EFFUSION There is no evidence of significant pericardial effusion. There is no pleural effusion. Critical Notification Critical Value: No <Conclusion> Left ventricle systolic function is normal. The Ejection Fraction is 55-60%. The interatrial septum is intact with no evidence for an atrial septal defect or patent foramen ovale as noted on 2-D or Doppler imaging. Injection of bubbles documented no interatrial shunt. There is no thrombus noted in the left atrial appendage. No significant valvular disease.
[2017-01-31] MEDS ORDERED: METOPROLOL TART IMMED RELEASE 25 MG TABLET PO ONE (19:00)
[2017-02-01] VITALS (7 sets, daily range): BP systolic 112–190; BP diastolic 51–79
[2017-02-01] MEDS: hydrALAZINE 20 MG/ML VIAL. IVP PRN (05:10)
[2017-02-01] MEDS: ENOXAPARIN 30 MG/0.3 ML DISP.SYRIN. SQ SCH (10:01)
[2017-02-01] MEDS: ASPIRIN 325 MG TABLET PO SCH (10:01)
[2017-02-01] MEDS: METOPROLOL TART IMMED RELEASE 25 MG TABLET PO SCH ×2 (10:01→22:38)
--- NOTE | 2017-02-01 10:39 | PDOC ---
PROGRESS NOTES Chief Complaint Chief Complaint A/P Multiple subacute infarcts right frontal lobe and left temporal lobe. Physical Debility due to above Vascular Dementia worsening. Accelerate HTN Controlled. Plan IV hydralazine prn Metoprolol BID PT/OT IRENE no acute thrombus. Aspirin SW consult for placement PT/OT speech and swallow Evaluation neurology and cardiology following prognosis poor/guarded. History of Present Illness History of Present Illness lying on bed able to swallow food no acute events. IRENE Today Vitals Vitals Vital Signs Date Time Temp Pulse Resp B/P Pulse Ox O2 Delivery O2 Flow Rate FiO2 02/01/17 10:01 99 141/66 02/01/17 08:00 Room Air 02/01/17 07:00 97.8 18 95 97.8 01/31/17 14:08 2 Physical Exam General: Alert, Other (alert, able to answer for few questions. ) Heart: Regular rate, Normal S1, Normal S2 Lungs: Clear Abdomen: Normal bowel sounds Extremities: No clubbing, No edema Comment Review of Relevant I have reviewed the following items jayashree (where applicable) has been applied. Labs Laboratory Tests Test 01/30/17 10:40 01/31/17 04:50 White Blood Count 8.8x10^3/uL (4.0-11.0) Red Blood Count 4.39x10^6/uL (3.50-5.40) Hemoglobin 11.9g/dL (12.0-15.5) Hematocrit 35.6% (36.0-47.0) Mean Corpuscular Volume 81fL (79-100) Mean Corpuscular Hemoglobin 27pg (25-35) Mean Corpuscular Hemoglobin Concent 34g/dL (31-37) Red Cell Distribution Width 14.1% (11.5-14.5) Platelet Count 300x10^3/uL (140-400) Neutrophils (%) (Auto) 72% (31-73) Lymphocytes (%) (Auto) 20% (24-48) Monocytes (%) (Auto) 5% (0-9) Eosinophils (%) (Auto) 2% (0-3) Basophils (%) (Auto) 1% (0-3) Neutrophils # (Auto) 6.4x10^3uL (1.8-7.7) Lymphocytes # (Auto) 1.7x10^3/uL (1.0-4.8) Monocytes # (Auto) 0.5x10^3/uL (0.0-1.1) Eosinophils # (Auto) 0.2x10^3/uL (0.0-0.7) Basophils # (Auto) 0.1x10^3/uL (0.0-0.2) Erythrocyte Sedimentation Rate 41 (0-25) Sodium Level 144mmol/L (136-145) Potassium Level 3.5mmol/L (3.5-5.1) Chloride Level 107mmol/L (98-107) Carbon Dioxide Level 27mmol/L (21-32) Anion Gap 10 (6-14) Blood Urea Nitrogen 18mg/dL (7-20) Creatinine 1.5mg/dL (0.6-1.0) Estimated GFR (Cockcroft-Gault) 33.8 BUN/Creatinine Ratio 12 (6-20) Glucose Level 142mg/dL (70-99) Calcium Level 8.9mg/dL (8.5-10.1) Total Bilirubin 0.4mg/dL (0.2-1.0) Aspartate Amino Transf (AST/SGOT) 21U/L (15-37) Alanine Aminotransferase (ALT/SGPT) 15U/L (14-59) Alkaline Phosphatase 92U/L (46-116) Total Protein 7.1g/dL (6.4-8.2) Albumin 3.0g/dL (3.4-5.0) Albumin/Globulin Ratio 0.7 (1.0-1.7) Vitamin B12 Level 469pg/mL (247-911) Serum Folate 11.63ng/ml (3.2-20.0) Triglycerides Level 114mg/dL (0-150) Cholesterol Level 210mg/dL (0-200) LDL Cholesterol, Calculated 130mg/dL (0-100) VLDL Cholesterol, Calculated 23mg/dL (0-40) HDL Cholesterol 57mg/dL (40-60) Cholesterol/HDL Ratio 3.7 Medications Current Medications Aspirin 325 mg 325 mg [id number] PO Last administered on 02/01/17t 10:01; Start 01/30/17 at 08:00 Sodium Chloride (Iv Sodium Chloride 0.9% 1000ml Bag) 1,000 ml @ 75 mls/hr [id number] IV Last administered on 01/31/17 23:50; Start 01/30/17 at 15:00 Sodium Chloride (Normal Saline Flush) 10 ml QSHIFT PRN IV AFTER MEDS AND BLOOD DRAWS; Start 01/30/17 at 15:15 Lidocaine HCl (Xylocaine 2% Topical 5gm Tube) 1 braydon 1X ONCE TP Last administered on 01/30/17 13:56; Start 01/30/17 at 15:15; Stop 01/30/17 at 15:16 ; Status DC Lidocaine HCl (Viscous Lidocaine) 15 ml 1X ONCE MM Last administered on 13:56; Start 01/30/17 at 15:15; Stop 01/30/17 at 15:16; Status DC Benzocaine (Hurricaine One) 1 spray 1X ONCE MM Last administered on 01/30/17 13:56; Start 01/30/17 at 15:15; Stop 01/30/17 at 15:16; Status DC Lidocaine HCl (Xylocaine 2% Topical 5gm Tube) 1 braydon 1X ONCE TP ; Start at 06:00; Stop 01/31/17 at 06:01; Status DC Lidocaine HCl (Viscous Lidocaine) 15 ml 1X ONCE MM ; Start 01/31/17 at 06:00; Stop 01/31/17 at 06:01; Status DC Benzocaine (Hurricaine One) 1 spray 1X ONCE MM Last administered on 01/31/17 13:56; Start 01/31/17 at 06:00; Stop 01/31/17 at 06:01; Status DC Lidocaine HCl (Viscous Lidocaine) 15 ml STK-MED ONCE .ROUTE ; Start 01/31/17 at 13:32; Stop 01/31/17 at 13:33; Status DC Benzocaine (Hurricaine One) 1 spray STK-MED ONCE .ROUTE ; Start 01/31/17 at 13: 32; Stop 01/31/17 at 13:33; Status DC Lidocaine HCl 30 braydon 30 braydon STK-MED ONCE TP ; Start 01/31/17 at 13:33; Stop at 13:34; Status DC Lactated Ringer's (Iv Lactated Ringers) 1,000 ml @ 75 mls/hr [id number] IV Last administered on 01/31/17 14:00; Start 01/31/17 at 14:45 Hydralazine HCl (Apresoline) 10 mg PRN Q4HRS PRN IVP ELEVATED BP, SEE COMMENTS Last administered on 02/01/17 05:10; Start 01/31/17 at 15:30 Metoprolol Tartrate (Lopressor) 12.5 mg BID PO Last administered on 01/31/17 17:24; Start 01/31/17 at 17:30; Stop 01/31/17 at 18:29; Status DC Metoprolol Tartrate (Lopressor) 25 mg BID PO ; Start 01/31/17 at 21:00; Stop at 21:00; Status DC Metoprolol Tartrate (Lopressor) 12.5 mg 1X ONCE PO Last administered on 19:00; Start 01/31/17 at 19:00; Stop 01/31/17 at 19:01; Status DC Metoprolol Tartrate (Lopressor) 25 mg BID PO Last administered on 02/01/17 10: 01; Start 02/01/17 at 09:00 Enoxaparin Sodium (Lovenox 30mg Syringe) 30 mg Q24H SQ Last administered on 10:01; Start 02/01/17 at 10:00 Active Scripts Active Reported Aspirin 325 Mg Tablet 1 Tab PO DAILY Metoprolol Tartrate 50 Mg Tablet 1 Tab PO DAILY Amlodipine Besylate 10 Mg Tablet 10 Mg PO DAILY Vitals/I & O Vital Sign - Last 24 Hours 01/31/17 01/31/17 01/31/17 01/31/17 11:15 13:36 14:08 14:20 Temp 98.1 99.1 98.8 98.1 99.1 98.8 Pulse 80 76 66 Resp 18 14 14 B/P 166/60 196/72 193/79 Pulse Ox 99 99 98 O2 Delivery Room Air Room Air Nasal Cannula Room Air O2 Flow Rate 2 01/31/17 01/31/17 01/31/17 01/31/17 14:23 14:38 14:53 15:08 Temp 98.8 98.8 Pulse 74 76 82 83 Resp 16 B/P 186/95 203/69 205/77 186/77 Pulse Ox 98 99 96 96 O2 Delivery Room Air Room Air Room Air Room Air 01/31/17 01/31/17 01/31/17 01/31/17 15:31 15:38 15:41 15:45 Pulse 77 84 78 77 Resp 12 20 B/P 182/67 182/67 182/67 166/62 Pulse Ox 98 95 93 O2 Delivery Room Air Room Air 01/31/17 01/31/17 01/31/17 01/31/17 16:00 16:15 16:30 17:00 Pulse 88 88 87 84 Resp 20 20 B/P 172/66 129/64 177/69 179/67 Pulse Ox 95 98 95 O2 Delivery Room Air Room Air 01/31/17 01/31/17 01/31/17 01/31/17 17:24 17:26 17:27 17:30 Pulse 97 85 B/P 188/73 188/73 188/77 173/71 Pulse Ox 95 01/31/17 01/31/17 01/31/17 01/31/17 18:00 19:00 20:00 22:54 Temp 98.2 98.2 Pulse 68 68 74 Resp 20 B/P 180/61 181/64 169/77 Pulse Ox 96 96 O2 Delivery Room Air Room Air 02/01/17 02/01/17 02/01/17 02/01/17 02:36 05:10 07:00 08:00 Temp 98.4 97.8 98.4 97.8 Pulse 78 84 99 Resp 18 18 B/P 173/79 184/86 141/66 Pulse Ox 97 95 O2 Delivery Room Air Room Air Room Air 02/01/17 10:01 Pulse 99 B/P 141/66 Intake and Output 01/31/17 01/31/17 02/01/17 15:00 23:00 07:00 Intake Total 700 ml 120 ml 0 ml Output Total 300 ml Balance 700 ml 120 ml -300 ml BERNA NGUYEN MD Feb 01, 2017 10:39
--- NOTE | 2017-02-01 12:15 | PDOC ---
PROGRESS NOTES Assessment Multiple subacute strokes, leading to [id number]-[id number] state. Cardiac emboli suspected, but echocardiogram, transesophageal and transthoracic, negative for source Plan No need to repeat prior studies done last month Rehabilitation modalities She will need retirement unit care. She was receiving home health, but has progressed. Aspirin for now. She is not an aspirin failure; there is no sign that she has had a new stroke since last month. I discussed my findings with the patient's son. Subjective No complaints Objective Vital Signs Date Time Temp Pulse Resp B/P Pulse Ox O2 Delivery O2 Flow Rate FiO2 02/01/17 10:48 97.7 97 18 148/69 96 Room Air 97.7 01/31/17 14:08 2 Intake and Output 02/01/17 07:00 Intake Total 820 ml Output Total 300 ml Balance 520 ml Intake Oral 120 ml IV Total 700 ml Output Urine Total 300 ml # Voids 3 PHYSICAL EXAM Alert. Knows her name, has aphasia PERRL. EOMI. CN: no focal findings. Muscle tone: normal. Muscle strength: 4/5 DTR: 1+ Plantar reflex: flexor Gait: not examined in bed. Sensory exam: no abnormal findings. No cerebellar signs elicited. Review of Relevant I have reviewed the following items jayashree (where applicable) has been applied. Labs Laboratory Tests Test 01/31/17 04:50 Triglycerides Level 114mg/dL (0-150) Cholesterol Level 210mg/dL (0-200) LDL Cholesterol, Calculated 130mg/dL (0-100) VLDL Cholesterol, Calculated 23mg/dL (0-40) HDL Cholesterol 57mg/dL (40-60) Cholesterol/HDL Ratio 3.7 Medications Current Medications Aspirin 325 mg 325 mg [id number] PO Last administered on 02/01/17 10:01; Start 01/30/17 at 08:00 Sodium Chloride (Iv Sodium Chloride 0.9% 1000ml Bag) 1,000 ml @ 75 mls/hr [id number] IV Last administered on 01/31/17 23:50; Start 01/30/17 at 15:00 Sodium Chloride (Normal Saline Flush) 10 ml QSHIFT PRN IV AFTER MEDS AND BLOOD DRAWS; Start 01/30/17 at 15:15 Lidocaine HCl (Xylocaine 2% Topical 5gm Tube) 1 braydon 1X ONCE TP Last administered on 3/14/17at 13:56; Start 01/30/17 at 15:15; Stop 01/30/17 at 15:16 ; Status DC Lidocaine HCl (Viscous Lidocaine) 15 ml 1X ONCE MM Last administered on 13:56; Start 01/30/17 at 15:15; Stop 01/30/17 at 15:16; Status DC Benzocaine (Hurricaine One) 1 spray 1X ONCE MM Last administered on 01/30/17 13:56; Start 01/30/17 at 15:15; Stop 01/30/17 at 15:16; Status DC Lidocaine HCl (Xylocaine 2% Topical 5gm Tube) 1 braydon 1X ONCE TP ; Start at 06:00; Stop 01/31/17 at 06:01; Status DC Lidocaine HCl (Viscous Lidocaine) 15 ml 1X ONCE MM ; Start 01/31/17 at 06:00; Stop 01/31/17 at 06:01; Status DC Benzocaine (Hurricaine One) 1 spray 1X ONCE MM Last administered on 01/31/17 13:56; Start 01/31/17 at 06:00; Stop 01/31/17 at 06:01; Status DC Lidocaine HCl (Viscous Lidocaine) 15 ml STK-MED ONCE .ROUTE ; Start 01/31/17 at 13:32; Stop 01/31/17 at 13:33; Status DC Benzocaine (Hurricaine One) 1 spray STK-MED ONCE .ROUTE ; Start 01/31/17 at 13: 32; Stop 01/31/17 at 13:33; Status DC Lidocaine HCl 30 braydon 30 braydon STK-MED ONCE TP ; Start 01/31/17 at 13:33; Stop at 13:34; Status DC Lactated Ringer's (Iv Lactated Ringers) 1,000 ml @ 75 mls/hr [id number] IV Last administered on 01/31/17 14:00; Start 01/31/17 at 14:45 Hydralazine HCl (Apresoline) 10 mg PRN Q4HRS PRN IVP ELEVATED BP, SEE COMMENTS Last administered on 02/01/17 05:10; Start 01/31/17 at 15:30 Metoprolol Tartrate (Lopressor) 12.5 mg BID PO Last administered on 01/31/17 17:24; Start 01/31/17 at 17:30; Stop 01/31/17 at 18:29; Status DC Metoprolol Tartrate (Lopressor) 25 mg BID PO ; Start 01/31/17 at 21:00; Stop at 21:00; Status DC Metoprolol Tartrate (Lopressor) 12.5 mg 1X ONCE PO Last administered on 19:00; Start 01/31/17 at 19:00; Stop 01/31/17 at 19:01; Status DC Metoprolol Tartrate (Lopressor) 25 mg BID PO Last administered on 02/01/17 10: 01; Start 02/01/17 at 09:00 Enoxaparin Sodium (Lovenox 30mg Syringe) 30 mg Q24H SQ Last administered on 10:01; Start 02/01/17 at 10:00 Active Scripts Active Reported Aspirin 325 Mg Tablet 1 Tab PO DAILY Metoprolol Tartrate 50 Mg Tablet 1 Tab PO DAILY Amlodipine Besylate 10 Mg Tablet 10 Mg PO DAILY Vitals/I & O Vital Sign - Last 24 Hours 01/31/17 01/31/17 01/31/17 01/31/17 13:36 14:08 14:20 14:23 Temp 99.1 98.8 99.1 98.8 Pulse 76 66 74 Resp 14 14 14 B/P 196/72 193/79 186/95 Pulse Ox 99 98 98 O2 Delivery Room Air Nasal Cannula Room Air Room Air O2 Flow Rate 2 01/31/17 01/31/17 01/31/17 01/31/17 14:38 14:53 15:08 15:31 Temp 98.8 98.8 Pulse 76 82 83 77 Resp 16 15 16 B/P 203/69 205/77 186/77 182/67 Pulse Ox 99 96 96 98 O2 Delivery Room Air Room Air Room Air 01/31/17 01/31/17 01/31/17 01/31/17 15:38 15:41 15:45 16:00 Pulse 84 78 77 88 Resp 12 20 20 B/P 182/67 182/67 166/62 172/66 Pulse Ox 95 93 95 O2 Delivery Room Air Room Air Room Air 01/31/17 01/31/17 01/31/17 01/31/17 16:15 16:30 17:00 17:24 Pulse 88 87 84 97 Resp 20 B/P 129/64 177/69 179/67 188/73 Pulse Ox 98 95 O2 Delivery Room Air 01/31/17 01/31/17 01/31/17 01/31/17 17:26 17:27 17:30 18:00 Pulse 85 68 Resp 20 B/P 188/73 188/77 173/71 180/61 Pulse Ox 95 96 01/31/17 01/31/17 01/31/17 02/01/17 19:00 20:00 22:54 02:36 Temp 98.2 98.4 98.2 98.4 Pulse 68 74 78 Resp 18 B/P 181/64 169/77 173/79 Pulse Ox 96 97 O2 Delivery Room Air Room Air Room Air 02/01/17 02/01/17 02/01/17 02/01/17 05:10 07:00 08:00 10:01 Temp 97.8 97.8 Pulse 84 99 99 Resp 18 B/P 184/86 141/66 141/66 Pulse Ox 95 O2 Delivery Room Air Room Air 02/01/17 10:48 Temp 97.7 97.7 Pulse 97 Resp 18 B/P 148/69 Pulse Ox 96 O2 Delivery Room Air Intake and Output 01/31/17 01/31/17 02/01/17 15:00 23:00 07:00 Intake Total 700 ml 120 ml 0 ml Output Total 300 ml Balance 700 ml 120 ml -300 ml Images IRENE 01/31: LEFT VENTRICLE The left ventricle is normal size. There is normal left ventricular wall thickness. Left ventricle systolic function is normal. The Ejection Fraction is 55-60%. There is normal LV segmental wall motion. RIGHT VENTRICLE The right ventricle is normal size. The right ventricular systolic function is normal. ATRIA The left atrium size is normal. The right atrium size is normal. The interatrial septum is intact with no evidence for an atrial septal defect or patent foramen ovale as noted on 2-D or Doppler imaging. Injection of bubbles documented no interatrial shunt. There is no thrombus noted in the left atrial appendage. AORTIC VALVE The aortic valve is normal in structure and function. The aortic valve is trileaflet. Doppler and Color Flow revealed no significant aortic regurgitation. There is no significant aortic valvular stenosis. MITRAL VALVE The mitral valve is normal in structure and function. There is no mitral valve stenosis. Doppler and Color Flow revealed mild mitral regurgitation. TRICUSPID VALVE The tricuspid valve is normal in structure and function. Doppler and Color Flow revealed no tricuspid valve regurgitation noted. There is no tricuspid valve stenosis. PULMONIC VALVE The pulmonary valve is normal in structure and function. Doppler and Color Flow revealed no pulmonic valvular regurgitation. There is no pulmonic valvular stenosis. GREAT VESSELS The aortic root is normal in size. The ascending aorta is normal in size. The IVC was visualized and appears normal in size. The SVC was visualized and appears normal in size. PERICARDIAL EFFUSION There is no evidence of significant pericardial effusion. There is no pleural effusion. Critical Notification Critical Value: No <Conclusion> Left ventricle systolic function is normal. The Ejection Fraction is 55-60%. The interatrial septum is intact with no evidence for an atrial septal defect or patent foramen ovale as noted on 2-D or Doppler imaging. Injection of bubbles documented no interatrial shunt. There is no thrombus noted in the left atrial appendage. No significant valvular disease. YFN MADDOX MD Feb 01, 2017 12:15
[2017-02-01] MEDS: IV RINGERS,LACTATED 1000ML 1,000 ML IV SCH (17:25)
[2017-02-01] MEDS: IV NORMAL SALINE 1000ML BAG 1,000 ML IV SCH (20:35)
[2017-02-02] VITALS (8 sets, daily range): BP systolic 172–211; BP diastolic 48–79
[2017-02-02] MEDS: hydrALAZINE 20 MG/ML VIAL. IVP PRN ×4 (03:09→21:29)
[2017-02-02] MEDS: METOPROLOL TART IMMED RELEASE 25 MG TABLET PO SCH ×2 (08:53→21:28)
[2017-02-02] MEDS: ASPIRIN 325 MG TABLET PO SCH (08:53)
--- NOTE | 2017-02-02 10:00 | PDOC ---
PROGRESS NOTES Assessment Multiple subacute strokes, leading to [id number] state. Cardiac emboli suspected, but echocardiogram, transesophageal and transthoracic, negative for source Plan No need to repeat prior studies done last month Rehabilitation modalities She will need halfway unit care. She was receiving home health, but has progressed. Aspirin for now. She is not an aspirin failure; there is no sign that she has had a new stroke since last month. PM&R consult Subjective No complaints Objective Vital Signs Date Time Temp Pulse Resp B/P Pulse Ox O2 Delivery O2 Flow Rate FiO2 02/02/17 09:48 204/55 02/02/17 08:53 72 02/02/17 07:00 98.6 18 95 Room Air 98.6 Intake and Output 02/02/17 07:00 Intake Total 120 ml Balance 120 ml Intake Oral 120 ml # Voids 3 PHYSICAL EXAM Alert. Knows her name, has aphasia PERRL. EOMI. CN: no focal findings. Muscle tone: normal. Muscle strength: 4/5 DTR: 1+ Plantar reflex: flexor Gait: not examined in bed. Sensory exam: no abnormal findings. No cerebellar signs elicited. Review of Relevant I have reviewed the following items jayashree (where applicable) has been applied. Medications Current Medications Aspirin 325 mg 325 mg DAILYWBKFT PO Last administered on 02/02/17 08:53; Start 01/30/17 at 08:00 Sodium Chloride (Iv Sodium Chloride 0.9% 1000ml Bag) 1,000 ml @ 75 mls/hr [id number] IV Last administered on 02/01/17 20:35; Start 01/30/17 at 15:00 Sodium Chloride (Normal Saline Flush) 10 ml QSHIFT PRN IV AFTER MEDS AND BLOOD DRAWS; Start 01/30/17 at 15:15 Lidocaine HCl (Xylocaine 2% Topical 5gm Tube) 1 braydon 1X ONCE TP Last administered on 01/30/17 13:56; Start 01/30/17 at 15:15; Stop 01/30/17 at 15:16 ; Status DC Lidocaine HCl (Viscous Lidocaine) 15 ml 1X ONCE MM Last administered on 13:56; Start 01/30/17 at 15:15; Stop 01/30/17 at 15:16; Status DC Benzocaine (Hurricaine One) 1 spray 1X ONCE MM Last administered on 01/30/17 13:56; Start 01/30/17 at 15:15; Stop 01/30/17 at 15:16; Status DC Lidocaine HCl (Xylocaine 2% Topical 5gm Tube) 1 braydon 1X ONCE TP ; Start at 06:00; Stop 01/31/17 at 06:01; Status DC Lidocaine HCl (Viscous Lidocaine) 15 ml 1X ONCE MM ; Start 01/31/17 at 06:00; Stop 01/31/17 at 06:01; Status DC Benzocaine (Hurricaine One) 1 spray 1X ONCE MM Last administered on 01/31/17 13:56; Start 01/31/17 at 06:00; Stop 01/31/17 at 06:01; Status DC Lidocaine HCl (Viscous Lidocaine) 15 ml STK-MED ONCE .ROUTE ; Start 01/31/17 at 13:32; Stop 01/31/17 at 13:33; Status DC Benzocaine (Hurricaine One) 1 spray STK-MED ONCE .ROUTE ; Start 01/31/17 at 13: 32; Stop 01/31/17 at 13:33; Status DC Lidocaine HCl 30 braydon 30 braydon STK-MED ONCE TP ; Start 01/31/17 at 13:33; Stop at 13:34; Status DC Lactated Ringer's (Iv Lactated Ringers) 1,000 ml @ 75 mls/hr [id number] IV Last administered on 01/31/17 14:00; Start 01/31/17 at 14:45; Stop 02/01/17 at 23:46 ; Status DC Hydralazine HCl (Apresoline) 10 mg PRN Q4HRS PRN IVP ELEVATED BP, SEE COMMENTS Last administered on 02/02/17 07:26; Start 01/31/17 at 15:30 Metoprolol Tartrate (Lopressor) 12.5 mg BID PO Last administered on 01/31/17 17:24; Start 01/31/17 at 17:30; Stop 01/31/17 at 18:29; Status DC Metoprolol Tartrate (Lopressor) 25 mg BID PO ; Start 01/31/17 at 21:00; Stop at 21:00; Status DC Metoprolol Tartrate (Lopressor) 12.5 mg 1X ONCE PO Last administered on 19:00; Start 01/31/17 at 19:00; Stop 01/31/17 at 19:01; Status DC Metoprolol Tartrate (Lopressor) 25 mg BID PO Last administered on 02/02/17 08: 53; Start 02/01/17 at 09:00 Enoxaparin Sodium (Lovenox 30mg Syringe) 30 mg Q24H SQ Last administered on 10:01; Start 02/01/17 at 10:00 Active Scripts Active Reported Aspirin 325 Mg Tablet 1 Tab PO DAILY Metoprolol Tartrate 50 Mg Tablet 1 Tab PO DAILY Amlodipine Besylate 10 Mg Tablet 10 Mg PO DAILY Vitals/I & O Vital Sign - Last 24 Hours 02/01/17 02/01/17 02/01/17 02/01/17 10:01 10:48 15:00 19:46 Temp 97.7 96.5 99.0 97.7 96.5 99.0 Pulse 99 97 75 Resp 18 B/P 141/66 148/69 190/69 156/62 Pulse Ox 96 96 96 O2 Delivery Room Air Room Air Room Air 02/01/17 02/01/17 02/01/17 02/01/17 20:00 22:38 23:14 23:17 Temp 98.6 98.9 98.6 98.9 Pulse 78 93 Resp 18 18 B/P 156/62 157/57 112/51 Pulse Ox 96 98 O2 Delivery Room Air Room Air Room Air 02/02/17 02/02/17 02/02/17 02/02/17 03:09 03:10 07:00 07:26 Temp 98.6 98.6 Pulse 79 72 Resp 18 18 B/P 180/79 180/79 211/73 211/104 Pulse Ox 96 95 O2 Delivery Room Air Room Air 02/02/17 02/02/17 08:53 09:48 Pulse 72 B/P 211/104 204/55 Intake and Output 02/01/17 02/01/17 02/02/17 15:00 23:00 07:00 Intake Total 100 ml 20 ml Balance 100 ml 20 ml YFN MADDOX MD Feb 02, 2017 10:00
--- NOTE | 2017-02-02 10:18 | PDOC ---
PROGRESS NOTES Chief Complaint Chief Complaint A/P Multiple subacute infarcts right frontal lobe and left temporal lobe. Physical Debility due to above Vascular Dementia worsening. Accelerate HTN Controlled. Plan IV hydralazine prn Metoprolol BID, increase the dose Add amlodipine PT/OT IRENE no acute thrombus. Aspirin Son wants her at home, home PT/OT speech and swallow Evaluation Passed Anticipated DC home today If SBP < 150. History of Present Illness History of Present Illness lying on bed able to swallow food no acute events. Vitals Vitals Vital Signs Date Time Temp Pulse Resp B/P Pulse Ox O2 Delivery O2 Flow Rate FiO2 02/02/17 09:48 204/55 02/02/17 08:53 72 02/02/17 07:00 98.6 18 95 Room Air 98.6 Physical Exam General: Alert, Other (alert, able to answer for few questions. ) Heart: Regular rate, Normal S1, Normal S2 Lungs: Clear Abdomen: Normal bowel sounds Extremities: No clubbing, No edema Comment Review of Relevant I have reviewed the following items jayashree (where applicable) has been applied. Medications Current Medications Aspirin 325 mg 325 mg DAILYWBKFT PO Last administered on 02/02/17 08:53; Start 01/30/17 at 08:00 Sodium Chloride (Iv Sodium Chloride 0.9% 1000ml Bag) 1,000 ml @ 75 mls/hr [id number] IV Last administered on 02/01/17 20:35; Start 01/30/17 at 15:00 Sodium Chloride (Normal Saline Flush) 10 ml QSHIFT PRN IV AFTER MEDS AND BLOOD DRAWS; Start 01/30/17 at 15:15 Lidocaine HCl (Xylocaine 2% Topical 5gm Tube) 1 braydon 1X ONCE TP Last administered on 01/30/17 13:56; Start 01/30/17 at 15:15; Stop 01/30/17 at 15:16 ; Status DC Lidocaine HCl (Viscous Lidocaine) 15 ml 1X ONCE MM Last administered on 13:56; Start 01/30/17 at 15:15; Stop 01/30/17 at 15:16; Status DC Benzocaine (Hurricaine One) 1 spray 1X ONCE MM Last administered on 01/30/17 13:56; Start 01/30/17 at 15:15; Stop 01/30/17 at 15:16; Status DC Lidocaine HCl (Xylocaine 2% Topical 5gm Tube) 1 braydon 1X ONCE TP ; Start at 06:00; Stop 01/31/17 at 06:01; Status DC Lidocaine HCl (Viscous Lidocaine) 15 ml 1X ONCE MM ; Start 01/31/17 at 06:00; Stop 01/31/17 at 06:01; Status DC Benzocaine (Hurricaine One) 1 spray 1X ONCE MM Last administered on 01/31/17 13:56; Start 01/31/17 at 06:00; Stop 01/31/17 at 06:01; Status DC Lidocaine HCl (Viscous Lidocaine) 15 ml STK-MED ONCE .ROUTE ; Start 01/31/17 at 13:32; Stop 01/31/17 at 13:33; Status DC Benzocaine (Hurricaine One) 1 spray STK-MED ONCE .ROUTE ; Start 01/31/17 at 13: 32; Stop 01/31/17 at 13:33; Status DC Lidocaine HCl 30 braydon 30 braydon STK-MED ONCE TP ; Start 01/31/17 at 13:33; Stop at 13:34; Status DC Lactated Ringer's (Iv Lactated Ringers) 1,000 ml @ 75 mls/hr [id number] IV Last administered on 01/31/17 14:00; Start 01/31/17 at 14:45; Stop 02/01/17 at 23:46 ; Status DC Hydralazine HCl (Apresoline) 10 mg PRN Q4HRS PRN IVP ELEVATED BP, SEE COMMENTS Last administered on 02/02/17 07:26; Start 01/31/17 at 15:30 Metoprolol Tartrate (Lopressor) 12.5 mg BID PO Last administered on 01/31/17 17:24; Start 01/31/17 at 17:30; Stop 01/31/17 at 18:29; Status DC Metoprolol Tartrate (Lopressor) 25 mg BID PO ; Start 01/31/17 at 21:00; Stop at 21:00; Status DC Metoprolol Tartrate (Lopressor) 12.5 mg 1X ONCE PO Last administered on 19:00; Start 01/31/17 at 19:00; Stop 01/31/17 at 19:01; Status DC Metoprolol Tartrate (Lopressor) 25 mg BID PO Last administered on 02/02/17 08: 53; Start 02/01/17 at 09:00 Enoxaparin Sodium (Lovenox 30mg Syringe) 30 mg Q24H SQ Last administered on 10:01; Start 02/01/17 at 10:00 Active Scripts Active Reported Aspirin 325 Mg Tablet 1 Tab PO DAILY Metoprolol Tartrate 50 Mg Tablet 1 Tab PO DAILY Amlodipine Besylate 10 Mg Tablet 10 Mg PO DAILY Vitals/I & O Vital Sign - Last 24 Hours 02/01/17 02/01/17 02/01/17 02/01/17 10:48 15:00 19:46 20:00 Temp 97.7 96.5 99.0 97.7 96.5 99.0 Pulse 97 75 Resp 18 B/P 148/69 190/69 156/62 Pulse Ox 96 96 96 O2 Delivery Room Air Room Air Room Air Room Air 02/01/17 02/01/17 02/01/17 02/02/17 22:38 23:14 23:17 03:09 Temp 98.6 98.9 98.6 98.9 Pulse 78 93 Resp 18 B/P 156/62 157/57 112/51 180/79 Pulse Ox 96 98 O2 Delivery Room Air Room Air 02/02/17 02/02/17 02/02/17 02/02/17 03:10 07:00 07:26 08:53 Temp 98.6 98.6 Pulse 79 72 72 Resp 18 B/P 180/79 211/73 211/104 211/104 Pulse Ox 96 95 O2 Delivery Room Air Room Air 02/02/17 09:48 B/P 204/55 Intake and Output 02/01/17 02/01/17 02/02/17 15:00 23:00 07:00 Intake Total 100 ml 20 ml Balance 100 ml 20 ml BERNA NGUYEN MD Feb 02, 2017 10:18
[2017-02-02] MEDS: ENOXAPARIN 30 MG/0.3 ML DISP.SYRIN. SQ SCH (10:45)
[2017-02-02] MEDS: AMLODIPINE BESYLATE 5 MG TABLET PO SCH (10:48)
[2017-02-02] MEDS: ACETAMINOPHEN 325 MG TABLET. PO PRN (11:07)
[2017-02-02] MEDS: IV NORMAL SALINE 1000ML BAG 1,000 ML IV SCH (19:00)
[2017-02-03] MEDS: IV NORMAL SALINE 1000ML BAG 1,000 ML IV SCH ×2 (02:23→11:11)
--- NOTE | 2017-02-03 02:27 | CONS ---
DATE OF CONSULTATION: LOCATION: She is in room 667. ATTENDING PHYSICIAN: Dr. Ng. The patient was seen at the request of Dr. Campoverde for rehab evaluation. HISTORY OF PRESENT ILLNESS: This is a 76-year-old female. The patient was admitted as transfer from [facility] Emergency Room with stroke symptoms and she is somewhat compulsive moving right arm. The patient is with history of multiple strokes in the past. CT scan of the brain revealed old infarcts, possibly a subacute left temporal infarct. Echocardiogram and carotid Dopplers were negative. As per her son, she is at baseline, gets around on her own, does not drive, needs help with ____, otherwise fairly independent. 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 He does not think she had any cognitive problems. No history of seizures or head injury. PAST MEDICAL HISTORY: Includes coronary artery disease, hypertension, dementia listed in the history, but the son denies. Also history of ovarian carcinoma. The patient also had all right hand fingers except thumb amputated in a farming accident and also oophorectomy. She is not known allergic to any medication. The patient lives with her son and he usually takes care of her as per social service and he plans to take her home at the time of discharge. The patient had 5 stairs to manage. He is concerned about how she can manage the steps. PHYSICAL EXAMINATION: Today revealed an elderly female. She follows a few commands. She moves all 4 extremities voluntarily where she had generalized muscle weakness. Deep tendon reflexes are brisk bilaterally. She had equal perception of touch and pinprick sensation bilaterally. She does not want to get out of the bed at present time, so I have not tested her mobility skills, but as per physical therapy notes dated 02/01/2017, she is cooperative. She requires moderate assistance supine to sit, minimal assistance with transfers, sit to stand using a roller walker and she requires verbal cues and standby assistance for walking using a roller walker up to 250 feet. She had difficulty releasing grasp of her bar or walker with her left hand. Occupational therapist noted her cooperative, decreased motor planning. The patient is having some difficulty to complete task. Speech pathologist saw her and they noted her with impaired cognition and ____ with her swallowing. She had some pocketing of solid in the left buccal cavity requiring cues to clear. They noted her dentition being in poor condition. ASSESSMENT: An elderly female with multi-infarct dementia. No obvious localized weakness. RECOMMENDATIONS: Agree with physical therapy and occupational therapy. To ask physical therapy to try her with stairs with the help of her son and if he feels more comfortable to help her at home with home health, that might be better rather than taking her to a custodial care unit. Whatever the family decides, that is appropriate. I spoke to the social media community manager. Dr. Campoverde, I appreciate asking me to participate in the care of this interesting patient. I will be glad to follow her with you as needed for her rehabilitation. DANI NAYLOR MD DR: JACOB/manolo JOB#: [id number] / [id number]
[2017-02-03 03:39] VITALS: BP 139/55
[2017-02-03] MEDS: ACETAMINOPHEN 325 MG TABLET. PO PRN ×3 (06:00→15:44)
[2017-02-03 08:00] VITALS: BP 194/69
[2017-02-03] MEDS: METOPROLOL TART IMMED RELEASE 25 MG TABLET PO SCH ×2 (08:35→22:05)
[2017-02-03] MEDS: ASPIRIN 325 MG TABLET PO SCH (08:35)
[2017-02-03] MEDS: AMLODIPINE BESYLATE 5 MG TABLET PO SCH (08:36)
[2017-02-03] MEDS: ENOXAPARIN 30 MG/0.3 ML DISP.SYRIN. SQ SCH (08:36)
[2017-02-03] MEDS ORDERED: MAGNESIUM HYDROXIDE 2,400 MG/30 ML ORAL.SUSP. PO PRN (09:45)
[2017-02-03] MEDS ORDERED: BISACODYL 5 MG TABLET.DR. PO PRN (09:45)
[2017-02-03] MEDS ORDERED: SENNOSIDES/DOCUSATE 8.6/50MG TABLET. PO PRN (09:45)
--- NOTE | 2017-02-03 09:48 | PDOC ---
PROGRESS NOTES Subjective Subjective No new complaints.She did not have a bowel movement since admission. Objective Objective Vital Signs Date Time Temp Pulse Resp B/P Pulse Ox O2 Delivery O2 Flow Rate FiO2 02/03/17 08:36 80 139/55 02/03/17 08:00 97.9 12 96 Room Air 97.9 01/31/17 14:08 2 Intake and Output 02/03/17 07:00 Intake Total 200 ml Balance 200 ml Intake Oral 200 ml # Voids 4 Physical Exam Physical Exam She is awake and sitting in bed with head end elevated and does not seem to be in any acute distress.She did well with her mobility including managing stairs under supervision.Her son plans to take her home when her hypertension is under good control. Plan Plan of Care Agree with plans for home with home health follow up when medically stable. Comment Review of Relevant I have reviewed the following items jayashree (where applicable) has been applied. Medications Current Medications Aspirin 325 mg 325 mg [id number] PO Last administered on 02/03/17 08:35; Start 01/30/17 at 08:00 Sodium Chloride (Iv Sodium Chloride 0.9% 1000ml Bag) 1,000 ml @ 75 mls/hr [id number] IV Last administered on 02/03/17 02:23; Start 01/30/17 at 15:00 Sodium Chloride (Normal Saline Flush) 10 ml QSHIFT PRN IV AFTER MEDS AND BLOOD DRAWS; Start 01/30/17 at 15:15 Lidocaine HCl (Xylocaine 2% Topical 5gm Tube) 1 braydon 1X ONCE TP Last administered on 01/30/17 13:56; Start 01/30/17 at 15:15; Stop 01/30/17 at 15:16 ; Status DC Lidocaine HCl (Viscous Lidocaine) 15 ml 1X ONCE MM Last administered on 13:56; Start 01/30/17 at 15:15; Stop 01/30/17 at 15:16; Status DC Benzocaine (Hurricaine One) 1 spray 1X ONCE MM Last administered on 01/30/17 13:56; Start 01/30/17 at 15:15; Stop 01/30/17 at 15:16; Status DC Lidocaine HCl (Xylocaine 2% Topical 5gm Tube) 1 braydon 1X ONCE TP ; Start at 06:00; Stop 01/31/17 at 06:01; Status DC Lidocaine HCl (Viscous Lidocaine) 15 ml 1X ONCE MM ; Start 01/31/17 at 06:00; Stop 01/31/17 at 06:01; Status DC Benzocaine (Hurricaine One) 1 spray 1X ONCE MM Last administered on 01/31/17 13:56; Start 01/31/17 at 06:00; Stop 01/31/17 at 06:01; Status DC Lidocaine HCl (Viscous Lidocaine) 15 ml STK-MED ONCE .ROUTE ; Start 01/31/17 at 13:32; Stop 01/31/17 at 13:33; Status DC Benzocaine (Hurricaine One) 1 spray STK-MED ONCE .ROUTE ; Start 01/31/17 at 13: 32; Stop 01/31/17 at 13:33; Status DC Lidocaine HCl 30 braydon 30 braydon STK-MED ONCE TP ; Start 01/31/17 at 13:33; Stop at 13:34; Status DC Lactated Ringer's (Iv Lactated Ringers) 1,000 ml @ 75 mls/hr [id number] IV Last administered on 01/31/17 14:00; Start 01/31/17 at 14:45; Stop 02/01/17 at 23:46 ; Status DC Hydralazine HCl (Apresoline) 10 mg PRN Q4HRS PRN IVP ELEVATED BP, SEE COMMENTS Last administered on 02/02/17 21:29; Start 01/31/17 at 15:30 Metoprolol Tartrate (Lopressor) 12.5 mg BID PO Last administered on 01/31/17 17:24; Start 01/31/17 at 17:30; Stop 01/31/17 at 18:29; Status DC Metoprolol Tartrate (Lopressor) 25 mg BID PO ; Start 01/31/17 at 21:00; Stop at 21:00; Status DC Metoprolol Tartrate (Lopressor) 12.5 mg 1X ONCE PO Last administered on 19:00; Start 01/31/17 at 19:00; Stop 01/31/17 at 19:01; Status DC Metoprolol Tartrate (Lopressor) 25 mg BID PO Last administered on 02/02/17 08: 53; Start 02/01/17 at 09:00; Stop 02/02/17 at 10:16; Status DC Enoxaparin Sodium (Lovenox 30mg Syringe) 30 mg Q24H SQ Last administered on 08:36; Start 02/01/17 at 10:00 Metoprolol Tartrate (Lopressor) 50 mg BID PO Last administered on 02/03/17 08: 35; Start 02/02/17 at 21:00 Amlodipine Besylate (Norvasc) 5 mg DAILY PO Last administered on 02/03/17 08: 36; Start 02/02/17 at 10:30 Acetaminophen (Tylenol) 325 mg PRN Q4HRS PRN PO MILD PAIN / TEMP Last administered on 02/03/17 06:00; Start 02/02/17 at 10:45 Active Scripts Active Reported Aspirin 325 Mg Tablet 1 Tab PO DAILY Metoprolol Tartrate 50 Mg Tablet 1 Tab PO DAILY Amlodipine Besylate 10 Mg Tablet 10 Mg PO DAILY Vitals/I & O Vital Sign - Last 24 Hours 02/02/17 02/02/17 02/02/17 02/02/17 09:48 10:36 10:48 10:55 Temp 98.4 98.4 Pulse 72 63 Resp 18 B/P 204/55 189/56 189/56 183/48 Pulse Ox 96 O2 Delivery Room Air 02/02/17 02/02/17 02/02/17 02/02/17 15:00 16:18 19:52 21:28 Temp 98.0 99.0 98.0 99.0 Pulse 76 82 98 98 Resp 18 18 B/P 186/69 192/60 172/59 172/59 Pulse Ox 96 97 O2 Delivery Room Air Room Air 02/02/17 02/02/17 02/03/17 02/03/17 21:29 23:00 03:39 08:00 Temp 97.9 98.4 97.9 97.9 98.4 97.9 Pulse 98 82 80 95 Resp 16 16 12 B/P 172/59 183/54 139/55 194/69 Pulse Ox 95 96 96 O2 Delivery Room Air Room Air Room Air 02/03/17 02/03/17 08:35 08:36 Pulse 80 80 B/P 139/55 139/55 Intake and Output 302/02/17 02/03/17 15:00 23:00 07:00 Intake Total 200 ml Balance 200 ml DANI NAYLOR MD Feb 03, 2017 09:48
[2017-02-03 11:00] VITALS: BP 175/54
[2017-02-03] MEDS: hydrALAZINE 20 MG/ML VIAL. IVP PRN ×3 (11:03→22:05)
[2017-02-03] MEDS ORDERED: ONDANSETRON PF 4 MG/2 ML VIAL. IV PRN (11:30)
[2017-02-03] MEDS ORDERED: AMLODIPINE BESYLATE 5 MG TABLET PO ONE (11:45)
[2017-02-03 15:00] VITALS: BP 186/81
--- NOTE | 2017-02-03 15:17 | PDOC ---
PROGRESS NOTES Chief Complaint Chief Complaint A/P Multiple subacute infarcts right frontal lobe and left temporal lobe. Physical Debility due to above Vascular Dementia worsening. Accelerate HTN Controlled. Plan IV hydralazine prn Metoprolol BID, increase the dose Add amlodipine and Lisinopril. PT/OT IRENE no acute thrombus. Aspirin Son wants her at home, home PT/OT speech and swallow Evaluation Passed Anticipated DC home today If SBP < 150. History of Present Illness History of Present Illness walking with PT no acute events BP not controlled constipation Vitals Vitals Vital Signs Date Time Temp Pulse Resp B/P Pulse Ox O2 Delivery O2 Flow Rate FiO2 02/03/17 12:52 71 175/54 02/03/17 11:00 97.9 16 95 Room Air 97.9 Physical Exam General: Alert, Other (alert, working with PT) Heart: Regular rate, Normal S1, Normal S2 Lungs: Clear Abdomen: Normal bowel sounds Extremities: No clubbing, No edema Assessment and Plan Assessmemt and Plan Problems Medical Problems: (1) CVA (cerebral vascular accident) Status: Acute Problems: Comment Review of Relevant I have reviewed the following items jayashree (where applicable) has been applied. Medications Current Medications Aspirin 325 mg 325 mg DAILYWBKFT PO Last administered on 02/03/17 08:35; Start 01/30/17 at 08:00 Sodium Chloride (Iv Sodium Chloride 0.9% 1000ml Bag) 1,000 ml @ 75 mls/hr [id number] IV Last administered on 02/03/17 11:11; Start 01/30/17 at 15:00 Sodium Chloride (Normal Saline Flush) 10 ml QSHIFT PRN IV AFTER MEDS AND BLOOD DRAWS; Start 01/30/17 at 15:15 Lidocaine HCl (Xylocaine 2% Topical 5gm Tube) 1 braydon 1X ONCE TP Last administered on 01/30/17 13:56; Start 01/30/17 at 15:15; Stop 01/30/17 at 15:16 ; Status DC Lidocaine HCl (Viscous Lidocaine) 15 ml 1X ONCE MM Last administered on 13:56; Start 01/30/17 at 15:15; Stop 01/30/17 at 15:16; Status DC Benzocaine (Hurricaine One) 1 spray 1X ONCE MM Last administered on 01/30/17 13:56; Start 01/30/17 at 15:15; Stop 01/30/17 at 15:16; Status DC Lidocaine HCl (Xylocaine 2% Topical 5gm Tube) 1 braydon 1X ONCE TP ; Start at 06:00; Stop 01/31/17 at 06:01; Status DC Lidocaine HCl (Viscous Lidocaine) 15 ml 1X ONCE MM ; Start 01/31/17 at 06:00; Stop 01/31/17 at 06:01; Status DC Benzocaine (Hurricaine One) 1 spray 1X ONCE MM Last administered on 01/31/17 13:56; Start 01/31/17 at 06:00; Stop 01/31/17 at 06:01; Status DC Lidocaine HCl (Viscous Lidocaine) 15 ml STK-MED ONCE .ROUTE ; Start 01/31/17 at 13:32; Stop 01/31/17 at 13:33; Status DC Benzocaine (Hurricaine One) 1 spray STK-MED ONCE .ROUTE ; Start 01/31/17 at 13: 32; Stop 01/31/17 at 13:33; Status DC Lidocaine HCl 30 braydon 30 braydon STK-MED ONCE TP ; Start 01/31/17 at 13:33; Stop at 13:34; Status DC Lactated Ringer's (Iv Lactated Ringers) 1,000 ml @ 75 mls/hr [id number] IV Last administered on 01/31/17 14:00; Start 01/31/17 at 14:45; Stop 02/01/17 at 23:46 ; Status DC Hydralazine HCl (Apresoline) 10 mg PRN Q4HRS PRN IVP ELEVATED BP, SEE COMMENTS Last administered on 02/03/17 11:03; Start 01/31/17 at 15:30 Metoprolol Tartrate (Lopressor) 12.5 mg BID PO Last administered on 01/31/17 17:24; Start 01/31/17 at 17:30; Stop 01/31/17 at 18:29; Status DC Metoprolol Tartrate (Lopressor) 25 mg BID PO ; Start 01/31/17 at 21:00; Stop at 21:00; Status DC Metoprolol Tartrate (Lopressor) 12.5 mg 1X ONCE PO Last administered on 19:00; Start 01/31/17 at 19:00; Stop 01/31/17 at 19:01; Status DC Metoprolol Tartrate (Lopressor) 25 mg BID PO Last administered on 02/02/17 08: 53; Start 02/01/17 at 09:00; Stop 02/02/17 at 10:16; Status DC Enoxaparin Sodium (Lovenox 30mg Syringe) 30 mg Q24H SQ Last administered on 08:36; Start 02/01/17 at 10:00 Metoprolol Tartrate (Lopressor) 50 mg BID PO Last administered on 02/03/17 08: 35; Start 02/02/17 at 21:00 Amlodipine Besylate (Norvasc) 5 mg DAILY PO Last administered on 02/03/17 08: 36; Start 02/02/17 at 10:30 Acetaminophen (Tylenol) 325 mg PRN Q4HRS PRN PO MILD PAIN / TEMP Last administered on 02/03/17 11:11; Start 02/02/17 at 10:45 Bisacodyl (Dulcolax Tab) 10 mg PRN DAILY PRN PO CONSTIPATION; Start 02/03/17 at 09:45 Magnesium Hydroxide (Milk Of Magnesia) 2,400 mg PRN DAILY PRN PO CONSTIPATION Last administered on 02/03/17 11:03; Start 02/03/17 at 09:45 Senna/Docusate Sodium (Senna Plus) 1 tab PRN BID PRN PO CONSTIPATION Last administered on 02/03/17 11:03; Start 02/03/17 at 09:45 Ondansetron HCl (Zofran) 4 mg PRN Q6HRS PRN IV NAUSEA/VOMITING Last administered on 02/03/17 11:29; Start 02/03/17 at 11:30 Amlodipine Besylate (Norvasc) 5 mg 1X ONCE PO Last administered on 02/03/17 12:52; Start 02/03/17 at 11:45; Stop 02/03/17 at 11:46; Status DC Active Scripts Active Reported Aspirin 325 Mg Tablet 1 Tab PO DAILY Metoprolol Tartrate 50 Mg Tablet 1 Tab PO DAILY Amlodipine Besylate 10 Mg Tablet 10 Mg PO DAILY Vitals/I & O Vital Sign - Last 24 Hours 02/02/17 02/02/17 02/02/17 02/02/17 16:18 19:52 21:28 21:29 Temp 99.0 99.0 Pulse 82 98 98 98 Resp 18 B/P 192/60 172/59 172/59 172/59 Pulse Ox 97 O2 Delivery Room Air 02/02/17 02/03/17 02/03/17 02/03/17 23:00 03:39 08:00 08:00 Temp 97.9 98.4 97.9 97.9 98.4 97.9 Pulse 82 80 95 Resp 16 16 12 B/P 183/54 139/55 194/69 Pulse Ox 95 96 96 O2 Delivery Room Air Room Air Room Air Room Air 02/03/17 02/03/17 02/03/17 02/03/17 08:35 08:36 11:00 11:03 Temp 97.9 97.9 Pulse 80 80 71 71 Resp 16 B/P 139/55 139/55 175/54 175/54 Pulse Ox 95 O2 Delivery Room Air 02/03/17 12:52 Pulse 71 B/P 175/54 Intake and Output 02/02/17 02/02/17 02/03/17 15:00 23:00 07:00 Intake Total 200 ml Balance 200 ml BERNA NGUYEN MD Feb 03, 2017 15:17
[2017-02-03] MEDS ORDERED: LISINOPRIL 10 MG TABLET PO SCH (15:30)
[2017-02-03 19:20] VITALS: BP 171/63
--- NOTE | 2017-02-03 22:26 | DS ---
DATE OF DISCHARGE: 02/02/2017 DISCHARGE DIAGNOSES: 1. Multiple subacute infarcts, right frontal lobe and left temporal lobe. 2. Physical debility due to subacute cerebrovascular accident. 3. Vascular dementia, worsening. 4. Accelerated hypertension. BRIEF HOSPITAL COURSE: This is a 76-year-old female patient, transferred from [facility] due to suspected CVA and she was evaluated by Dr. Campoverde. She had a workup such as echocardiogram, carotid Doppler, which were negative; however, the patient's mental status is slowly declining. She had an MRI of the brain, which showed subacute infarcts in the right frontal and left temporal lobe. The patient's physical symptoms improved; however, she needs help with ADLs and IADLs. The patient's son declined to send her to senior living facility, would like to take her home. However, during hospitalization, the patient's blood pressures were difficult to control. She has been getting several medications such as lisinopril, metoprolol, amlodipine; however, at this time, her blood pressure is always staying more than 170s. DISCHARGE EXAMINATION: Please see my progress note. DISCHARGE CONDITION: Stable. PROGNOSIS: Guarded. FOLLOWUP: With the primary care doctor in 1-4 weeks. DISCHARGE DISPOSITION: Home with home health. DISCHARGE DIET: Low sodium diet. Total time spent for discharge is 35 minutes for patient education, counseling, and coordination of care. BERNA NGUYEN MD DR: ASIA/manolo JOB#: [id number] / [id number] BRANDON
[2017-02-03 23:20] VITALS: BP 174/74
[2017-02-04 03:20] VITALS: BP 171/71
[2017-02-04] MEDS: hydrALAZINE 20 MG/ML VIAL. IVP PRN ×2 (06:41→11:43)
[2017-02-04 07:00] VITALS: BP 179/66
--- NOTE | 2017-02-04 07:17 | PDOC ---
PROGRESS NOTES Chief Complaint Chief Complaint A/P Accelerate HTN Controlled. Dysphagia Multiple subacute infarcts right frontal lobe and left temporal lobe. Physical Debility due to above Vascular Dementia worsening. Constipation Plan HOld oral BP as she is not able to swallow well. IV hydralazine prn change BP medications to IV, consult GI for abdominal pain, Son wants her at home, home PT/OT speech and swallow Evaluation Passed Initially but now not able to swallow. treat constipation, see orders. PT/OT IRENE no acute thrombus. History of Present Illness History of Present Illness walking with PT no acute events BP not controlled constipation Vitals Vitals Vital Signs Date Time Temp Pulse Resp B/P Pulse Ox O2 Delivery O2 Flow Rate FiO2 02/04/17 06:41 94 192/76 02/04/17 03:20 98.8 18 93 Room Air 98.8 Physical Exam General: Alert, Other (alert, working with PT) Heart: Regular rate, Normal S1, Normal S2 Lungs: Clear Abdomen: Normal bowel sounds, Soft Extremities: No clubbing, No edema Assessment and Plan Assessmemt and Plan Problems Medical Problems: (1) CVA (cerebral vascular accident) Status: Acute Problems: Comment Review of Relevant I have reviewed the following items jayashree (where applicable) has been applied. Medications Current Medications Aspirin 325 mg 325 mg DAILYWBKFT PO Last administered on 02/03/17 08:35; Start 01/30/17 at 08:00 Sodium Chloride (Iv Sodium Chloride 0.9% 1000ml Bag) 1,000 ml @ 75 mls/hr [id number] IV Last administered on 02/03/17 11:11; Start 01/30/17 at 15:00; Stop 02/03/17 at 15:16; Status DC Sodium Chloride (Normal Saline Flush) 10 ml QSHIFT PRN IV AFTER MEDS AND BLOOD DRAWS; Start 01/30/17 at 15:15 Lidocaine HCl (Xylocaine 2% Topical 5gm Tube) 1 braydon 1X ONCE TP Last administered on 01/30/17 13:56; Start 01/30/17 at 15:15; Stop 01/30/17 at 15:16 ; Status DC Lidocaine HCl (Viscous Lidocaine) 15 ml 1X ONCE MM Last administered on 13:56; Start 01/30/17 at 15:15; Stop 01/30/17 at 15:16; Status DC Benzocaine (Hurricaine One) 1 spray 1X ONCE MM Last administered on 01/30/17 13:56; Start 01/30/17 at 15:15; Stop 01/30/17 at 15:16; Status DC Lidocaine HCl (Xylocaine 2% Topical 5gm Tube) 1 braydon 1X ONCE TP ; Start at 06:00; Stop 01/31/17 at 06:01; Status DC Lidocaine HCl (Viscous Lidocaine) 15 ml 1X ONCE MM ; Start 01/31/17 at 06:00; Stop 01/31/17 at 06:01; Status DC Benzocaine (Hurricaine One) 1 spray 1X ONCE MM Last administered on 01/31/17 13:56; Start 01/31/17 at 06:00; Stop 01/31/17 at 06:01; Status DC Lidocaine HCl (Viscous Lidocaine) 15 ml STK-MED ONCE .ROUTE ; Start 01/31/17 at 13:32; Stop 01/31/17 at 13:33; Status DC Benzocaine (Hurricaine One) 1 spray STK-MED ONCE .ROUTE ; Start 01/31/17 at 13: 32; Stop 01/31/17 at 13:33; Status DC Lidocaine HCl 30 braydon 30 braydon STK-MED ONCE TP ; Start 01/31/17 at 13:33; Stop at 13:34; Status DC Lactated Ringer's (Iv Lactated Ringers) 1,000 ml @ 75 mls/hr [id number] IV Last administered on 01/31/17 14:00; Start 01/31/17 at 14:45; Stop 02/01/17 at 23:46 ; Status DC Hydralazine HCl (Apresoline) 10 mg PRN Q4HRS PRN IVP ELEVATED BP, SEE COMMENTS Last administered on 02/04/17 06:41; Start 01/31/17 at 15:30 Metoprolol Tartrate (Lopressor) 12.5 mg BID PO Last administered on 01/31/17 17:24; Start 01/31/17 at 17:30; Stop 01/31/17 at 18:29; Status DC Metoprolol Tartrate (Lopressor) 25 mg BID PO ; Start 01/31/17 at 21:00; Stop at 21:00; Status DC Metoprolol Tartrate (Lopressor) 12.5 mg 1X ONCE PO Last administered on 19:00; Start 01/31/17 at 19:00; Stop 01/31/17 at 19:01; Status DC Metoprolol Tartrate (Lopressor) 25 mg BID PO Last administered on 02/02/17 08: 53; Start 02/01/17 at 09:00; Stop 02/02/17 at 10:16; Status DC Enoxaparin Sodium (Lovenox 30mg Syringe) 30 mg Q24H SQ Last administered on 08:36; Start 02/01/17 at 10:00 Metoprolol Tartrate (Lopressor) 50 mg BID PO Last administered on 02/03/17 22: 05; Start 02/02/17 at 21:00 Amlodipine Besylate (Norvasc) 5 mg DAILY PO Last administered on 02/03/17 08: 36; Start 02/02/17 at 10:30; Stop 02/04/17 at 07:15; Status DC Acetaminophen (Tylenol) 325 mg PRN Q4HRS PRN PO MILD PAIN / TEMP Last administered on 02/03/17 15:44; Start 02/02/17 at 10:45 Bisacodyl (Dulcolax Tab) 10 mg PRN DAILY PRN PO CONSTIPATION Last administered on 02/03/17 15:44; Start 02/03/17 at 09:45 Magnesium Hydroxide (Milk Of Magnesia) 2,400 mg PRN DAILY PRN PO CONSTIPATION Last administered on 02/03/17 11:03; Start 02/03/17 at 09:45 Senna/Docusate Sodium (Senna Plus) 1 tab PRN BID PRN PO CONSTIPATION Last administered on 02/03/17 11:03; Start 02/03/17 at 09:45 Ondansetron HCl (Zofran) 4 mg PRN Q6HRS PRN IV NAUSEA/VOMITING Last administered on 02/03/17 11:29; Start 02/03/17 at 11:30 Amlodipine Besylate (Norvasc) 5 mg 1X ONCE PO Last administered on 02/03/17 12:52; Start 02/03/17 at 11:45; Stop 02/03/17 at 11:46; Status DC Lisinopril (Prinivil) 10 mg DAILY PO Last administered on 02/03/17t 15:44; Start 02/03/17 at 15:30 Amlodipine Besylate (Norvasc) 10 mg DAILY PO ; Start 02/04/17 at 09:00; Status UNV Active Scripts Active Reported Aspirin 325 Mg Tablet 1 Tab PO DAILY Metoprolol Tartrate 50 Mg Tablet 1 Tab PO DAILY Amlodipine Besylate 10 Mg Tablet 10 Mg PO DAILY Vitals/I & O Vital Sign - Last 24 Hours 02/03/17 02/03/17 02/03/17 02/03/17 08:00 08:00 08:35 08:36 Temp 97.9 97.9 Pulse 95 80 80 Resp 12 B/P 194/69 139/55 139/55 Pulse Ox 96 O2 Delivery Room Air Room Air 02/03/17 02/03/17 02/03/17 02/03/17 11:00 11:03 12:52 15:00 Temp 97.9 98.9 97.9 98.9 Pulse 71 71 71 89 Resp 16 12 B/P 175/54 175/54 175/54 186/81 Pulse Ox 95 96 O2 Delivery Room Air Room Air 02/03/17 02/03/17 02/03/17 02/03/17 15:44 15:46 19:20 20:00 Temp 98.3 98.3 Pulse 84 84 93 Resp 16 B/P 186/81 186/81 171/63 Pulse Ox 94 O2 Delivery Room Air Room Air 02/03/17 02/03/17 02/03/17 02/04/17 22:05 22:05 23:20 03:20 Temp 99.2 98.8 99.2 98.8 Pulse 93 93 96 100 Resp 18 B/P 171/63 171/63 174/74 171/71 Pulse Ox 95 93 O2 Delivery Room Air Room Air 02/04/17 06:41 Pulse 94 B/P 192/76 Intake and Output 02/03/17 02/03/17 02/04/17 15:00 23:00 07:00 Intake Total 200 ml Balance 200 ml BERNA NGUYEN MD Feb 04, 2017 07:17
[2017-02-04] MEDS: ASPIRIN 325 MG TABLET PO SCH (08:00)
[2017-02-04] MEDS: ENALAPRILAT 2.5 MG/2 ML VIAL. IV SCH ×4 (08:35→23:04)
[2017-02-04] MEDS: METOPROLOL TARTRATE 5 MG/5 ML VIAL. IVP SCH ×4 (08:37→23:02)
[2017-02-04] MEDS: AMLODIPINE BESYLATE 10 MG TABLET PO SCH (08:40)
[2017-02-04] MEDS: ENOXAPARIN 30 MG/0.3 ML DISP.SYRIN. SQ SCH (08:42)
[2017-02-04] MEDS ORDERED: LISINOPRIL 20 MG TABLET PO SCH (09:00)
--- NOTE | 2017-02-04 09:20 | RAD ---
Indication: Nausea, vomiting, and constipation. Technique: Abdominal series with AP chest radiograph contains 3 images. There is no comparison. Findings: There is a small left pleural effusion with basilar atelectasis and/or infiltrate. The heart is not enlarged. There is atheromatous disease in the thoracic aorta. Median sternotomy wires are noted. There is no free air. Bowel gas pattern is nonobstructive with gas to the rectum. There are degenerative changes in the spine. Impression: 1. Nonobstructive bowel gas pattern. 2. Small left pleural effusion.
[2017-02-04 11:00] VITALS: BP 185/67
--- NOTE | 2017-02-04 14:24 | PDOC2 ---
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 Oophorectomy) Current Problem List Problem List Problems Medical Problems: (1) CVA (cerebral vascular accident) Status: Acute Current Medications Current Medications Current Medications Aspirin 325 mg 325 mg DAILYWBKFT PO Last administered on 02/03/17 08:35; Start 01/30/17 at 08:00 Sodium Chloride (Iv Sodium Chloride 0.9% 1000ml Bag) 1,000 ml @ 75 mls/hr [id number] IV Last administered on 02/03/17 11:11; Start 01/30/17 at 15:00; Stop 02/03/17 at 15:16; Status DC Sodium Chloride (Normal Saline Flush) 10 ml QSHIFT PRN IV AFTER MEDS AND BLOOD DRAWS; Start 01/30/17 at 15:15 Lidocaine HCl (Xylocaine 2% Topical 5gm Tube) 1 braydon 1X ONCE TP Last administered on 01/30/17 13:56; Start 01/30/17 at 15:15; Stop 01/30/17 at 15:16 ; Status DC Lidocaine HCl (Viscous Lidocaine) 15 ml 1X ONCE MM Last administered on 13:56; Start 01/30/17 at 15:15; Stop 01/30/17 at 15:16; Status DC Benzocaine (Hurricaine One) 1 spray 1X ONCE MM Last administered on 01/30/17 13:56; Start 01/30/17 at 15:15; Stop 01/30/17 at 15:16; Status DC Lidocaine HCl (Xylocaine 2% Topical 5gm Tube) 1 braydon 1X ONCE TP ; Start at 06:00; Stop 01/31/17 at 06:01; Status DC Lidocaine HCl (Viscous Lidocaine) 15 ml 1X ONCE MM ; Start 01/31/17 at 06:00; Stop 01/31/17 at 06:01; Status DC Benzocaine (Hurricaine One) 1 spray 1X ONCE MM Last administered on 01/31/17 13:56; Start 01/31/17 at 06:00; Stop 01/31/17 at 06:01; Status DC Lidocaine HCl (Viscous Lidocaine) 15 ml STK-MED ONCE .ROUTE ; Start 01/31/17 at 13:32; Stop 01/31/17 at 13:33; Status DC Benzocaine (Hurricaine One) 1 spray STK-MED ONCE .ROUTE ; Start 01/31/17 at 13: 32; Stop 01/31/17 at 13:33; Status DC Lidocaine HCl 30 braydon 30 braydon STK-MED ONCE TP ; Start 01/31/17 at 13:33; Stop at 13:34; Status DC Lactated Ringer's (Iv Lactated Ringers) 1,000 ml @ 75 mls/hr [id number] IV Last administered on 01/31/17 14:00; Start 01/31/17 at 14:45; Stop 02/01/17 at 23:46 ; Status DC Hydralazine HCl (Apresoline) 10 mg PRN Q4HRS PRN IVP ELEVATED BP, SEE COMMENTS Last administered on 02/04/17 11:43; Start 01/31/17 at 15:30 Metoprolol Tartrate (Lopressor) 12.5 mg BID PO Last administered on 01/31/17 17:24; Start 01/31/17 at 17:30; Stop 01/31/17 at 18:29; Status DC Metoprolol Tartrate (Lopressor) 25 mg BID PO ; Start 01/31/17 at 21:00; Stop at 21:00; Status DC Metoprolol Tartrate (Lopressor) 12.5 mg 1X ONCE PO Last administered on 19:00; Start 01/31/17 at 19:00; Stop 01/31/17 at 19:01; Status DC Metoprolol Tartrate (Lopressor) 25 mg BID PO Last administered on 02/02/17 08: 53; Start 02/01/17 at 09:00; Stop 02/02/17 at 10:16; Status DC Enoxaparin Sodium (Lovenox 30mg Syringe) 30 mg Q24H SQ Last administered on 08:42; Start 02/01/17 at 10:00 Metoprolol Tartrate (Lopressor) 50 mg BID PO Last administered on 02/03/17 22: 05; Start 02/02/17 at 21:00; Stop 02/04/17 at 07:58; Status DC Amlodipine Besylate (Norvasc) 5 mg DAILY PO Last administered on 02/03/17 08: 36; Start 02/02/17 at 10:30; Stop 02/04/17 at 07:15; Status DC Acetaminophen (Tylenol) 325 mg PRN Q4HRS PRN PO MILD PAIN / TEMP Last administered on 02/03/17 15:44; Start 02/02/17 at 10:45 Bisacodyl (Dulcolax Tab) 10 mg PRN DAILY PRN PO CONSTIPATION Last administered on 02/03/17 15:44; Start 02/03/17 at 09:45 Magnesium Hydroxide (Milk Of Magnesia) 2,400 mg PRN DAILY PRN PO CONSTIPATION Last administered on 02/03/17 11:03; Start 02/03/17 at 09:45 Senna/Docusate Sodium (Senna Plus) 1 tab PRN BID PRN PO CONSTIPATION Last administered on 02/03/17 11:03; Start 02/03/17 at 09:45 Ondansetron HCl (Zofran) 4 mg PRN Q6HRS PRN IV NAUSEA/VOMITING Last administered on 02/03/17 11:29; Start 02/03/17 at 11:30 Amlodipine Besylate (Norvasc) 5 mg 1X ONCE PO Last administered on 02/03/17 12:52; Start 02/03/17 at 11:45; Stop 02/03/17 at 11:46; Status DC Lisinopril (Prinivil) 10 mg DAILY PO Last administered on 02/03/17 15:44; Start 02/03/17 at 15:30; Stop 02/04/17 at 07:18; Status DC Amlodipine Besylate (Norvasc) 10 mg DAILY PO ; Start 02/04/17 at 09:00 Lisinopril (Prinivil) 20 mg DAILY PO ; Start 02/04/17 at 09:00; Stop 02/04/17 at 09:00; Status DC Metoprolol Tartrate (Lopressor) 5 mg Q6HRS IVP Last administered on 02/04/17 13:04; Start 02/04/17 at 08:30 Enalaprilat (Vasotec) 2.5 mg Q6HRS IV Last administered on 02/04/17 13:05; Start 02/04/17 at 08:30 Active Scripts Active Reported Aspirin 325 Mg Tablet 1 Tab PO DAILY Metoprolol Tartrate 50 Mg Tablet 1 Tab PO DAILY Amlodipine Besylate 10 Mg Tablet 10 Mg PO DAILY Allergies Allergies: Coded Allergies: No Known Drug Allergies (Unverified , 01/29/17) Vitals VITALS Vital Signs Date Time Temp Pulse Resp B/P Pulse Ox O2 Delivery O2 Flow Rate FiO2 02/04/17 13:05 99 176/66 02/04/17 11:00 98.1 18 97 Room Air 98.1 Assessment/Plan Assessment/Plan abd pain- with CVA/immobility, differential includes: fecal impaction, UTI, malignancy,and/or drug side effect. Plan speech path evaluation enema this evening if no bowel movement Full note dictated MARYANN PALOMO MD Feb 04, 2017 14:24
[2017-02-04 15:00] VITALS: BP 168/71
[2017-02-04] MEDS: IV NORMAL SALINE 1000ML BAG 1,000 ML IV SCH (17:54)
[2017-02-04 19:23] VITALS: BP 147/63
[2017-02-04 22:55] VITALS: BP 202/68
[2017-02-05] VITALS (8 sets, daily range): BP systolic 141–210; BP diastolic 60–76
[2017-02-05] MEDS: hydrALAZINE 20 MG/ML VIAL. IVP PRN ×3 (02:52→22:08)
[2017-02-05] MEDS: METOPROLOL TARTRATE 5 MG/5 ML VIAL. IVP SCH ×2 (06:04→11:59)
[2017-02-05] MEDS: ENALAPRILAT 2.5 MG/2 ML VIAL. IV SCH ×3 (06:05→16:54)
[2017-02-05] MEDS: IV NORMAL SALINE 1000ML BAG 1,000 ML IV SCH (06:07)
[2017-02-05] MEDS: ASPIRIN 325 MG TABLET PO SCH (08:00)
[2017-02-05] MEDS: AMLODIPINE BESYLATE 10 MG TABLET PO SCH (08:47)
[2017-02-05] MEDS: ENOXAPARIN 30 MG/0.3 ML DISP.SYRIN. SQ SCH (08:48)
--- NOTE | 2017-02-05 08:55 | CONS ---
DATE OF CONSULTATION: 02/04/2017 REASON FOR CONSULTATION: Nausea, vomiting, abdominal pain, constipation. HISTORY OF PRESENT ILLNESS: This is a 76-year-old female who is aphasic with recent multiple CVAs as well as hypertension, hyperlipidemia and constipation, seen prior to release with increasing constipation and poor p.o. intake. Speech pathology evaluation presently pending for possible oropharyngeal dysphagia. KUB did not reveal any free air, obstruction or volvulus, but the patient was not noted to have a bowel movement since she has been in the hospital over the weekend. With continued symptoms, consultation is requested. PAST MEDICAL HISTORY: Hypertension, hyperlipidemia, constipation, history of CVAs. ALLERGIES: None. FAMILY AND SOCIAL HISTORY: She does not drink or smoke. She lives in a facility. MEDICATIONS: Per the [facility] include Norvasc, Vasotec, Lopressor, Zofran, senna, milk of magnesia, Lovenox, Apresoline, aspirin. Family and social history as stated. REVIEW OF SYSTEMS: Not obtainable due to her aphasia. PHYSICAL EXAMINATION: VITAL SIGNS: Temp is 98.1, pulse 97, respiratory rate is 18, blood pressure is 185/67. HEENT: Reveals a normocephalic, atraumatic head. Pupils and extraocular movements not tested. Sclerae anicteric. NECK: Supple. LUNGS: Clear. CARDIOVASCULAR: Reveals S1, S2 without S3, S4 or appreciable murmur. ABDOMEN: Reveals a soft, distended abdomen, without appreciable hepatosplenomegaly with normoactive bowel sounds. EXTREMITIES: Reveals surgical changes in the right hand with 1 digit present. LABORATORY STUDIES: Hemoglobin 11.9, hematocrit 35.6, white count 8.0, platelet count ____. Sed rate is 41. Sodium 144, potassium 3.5, chloride 107, BUN 18, creatinine 1.5, glucose 142, calcium 8.9, total bilirubin 0.4, AST of 21, ALT of 15, alk phos of 52, total protein 7.1. Cholesterol 210, B12 is 469, folate is 11.63. IMPRESSION: Constipation, nausea, vomiting, abdominal pain, most likely is multifactorial in etiology, could be drug induced, could be due to immobility, could be due to malignancy. We will therefore recommend tap water enema if there is no improvement, pending her speech path evaluation as well as thyroid function tests. I would like to thank Dr. Ng for allowing us to consult and participate in this patient's care. MARYANN PALOMO MD DR: CORDELL/manolo JOB#: [id number] / [id number] ROSA Zuluaga DO
--- NOTE | 2017-02-05 09:41 | PDOC ---
PROGRESS NOTES Subjective Subjective No complaints. Objective Objective Vital Signs Date Time Temp Pulse Resp B/P Pulse Ox O2 Delivery O2 Flow Rate FiO2 02/05/17 08:47 92 178/66 02/05/17 07:10 16 95 Room Air 02/05/17 02:53 98.1 98.1 01/31/17 14:08 2 Intake and Output 02/05/17 07:00 Intake Total 25 ml Balance 25 ml Intake Oral 25 ml # Voids 3 Physical Exam Physical Exam She is sleepy this AM sitting in bed with head end of bed elevated and scrambled egg over her tongue.She is moving all extremities by herself. Assessment Assessment Problems Medical Problems: (1) CVA (cerebral vascular accident) Status: Acute Plan Plan of [facility] with home health follow up when medically stable. Comment Review of Relevant I have reviewed the following items jayashree (where applicable) has been applied. Labs Laboratory Tests Test 02/04/17 15:05 Thyroid Stimulating Hormone (TSH) 2.334uIU/mL (0.358-3.74) Laboratory Tests Test 02/04/17 15:05 Thyroid Stimulating Hormone (TSH) 2.334uIU/mL (0.358-3.74) Medications Current Medications Aspirin 325 mg 325 mg [id number] PO Last administered on 02/03/17 08:35; Start 01/30/17 at 08:00 Sodium Chloride (Iv Sodium Chloride 0.9% 1000ml Bag) 1,000 ml @ 75 mls/hr [id number] IV Last administered on 02/03/17 11:11; Start 01/30/17 at 15:00; Stop 02/03/17 at 15:16; Status DC Sodium Chloride (Normal Saline Flush) 10 ml QSHIFT PRN IV AFTER MEDS AND BLOOD DRAWS; Start 01/30/17 at 15:15 Lidocaine HCl (Xylocaine 2% Topical 5gm Tube) 1 braydon 1X ONCE TP Last administered on 01/30/17 13:56; Start 01/30/17 at 15:15; Stop 01/30/17 at 15:16 ; Status DC Lidocaine HCl (Viscous Lidocaine) 15 ml 1X ONCE MM Last administered on 13:56; Start 01/30/17 at 15:15; Stop 01/30/17 at 15:16; Status DC Benzocaine (Hurricaine One) 1 spray 1X ONCE MM Last administered on 01/30/17 13:56; Start 01/30/17 at 15:15; Stop 01/30/17 at 15:16; Status DC Lidocaine HCl (Xylocaine 2% Topical 5gm Tube) 1 braydon 1X ONCE TP ; Start at 06:00; Stop 01/31/17 at 06:01; Status DC Lidocaine HCl (Viscous Lidocaine) 15 ml 1X ONCE MM ; Start 01/31/17 at 06:00; Stop 01/31/17 at 06:01; Status DC Benzocaine (Hurricaine One) 1 spray 1X ONCE MM Last administered on 01/31/17 13:56; Start 01/31/17 at 06:00; Stop 01/31/17 at 06:01; Status DC Lidocaine HCl (Viscous Lidocaine) 15 ml STK-MED ONCE .ROUTE ; Start 01/31/17 at 13:32; Stop 01/31/17 at 13:33; Status DC Benzocaine (Hurricaine One) 1 spray STK-MED ONCE .ROUTE ; Start 01/31/17 at 13: 32; Stop 01/31/17 at 13:33; Status DC Lidocaine HCl 30 braydon 30 braydon STK-MED ONCE TP ; Start 01/31/17 at 13:33; Stop at 13:34; Status DC Lactated Ringer's (Iv Lactated Ringers) 1,000 ml @ 75 mls/hr [id number] IV Last administered on 01/31/17 14:00; Start 01/31/17 at 14:45; Stop 02/01/17 at 23:46 ; Status DC Hydralazine HCl (Apresoline) 10 mg PRN Q4HRS PRN IVP ELEVATED BP, SEE COMMENTS Last administered on 02/05/17 07:43; Start 01/31/17 at 15:30 Metoprolol Tartrate (Lopressor) 12.5 mg BID PO Last administered on 01/31/17 17:24; Start 01/31/17 at 17:30; Stop 01/31/17 at 18:29; Status DC Metoprolol Tartrate (Lopressor) 25 mg BID PO ; Start 01/31/17 at 21:00; Stop at 21:00; Status DC Metoprolol Tartrate (Lopressor) 12.5 mg 1X ONCE PO Last administered on 19:00; Start 01/31/17 at 19:00; Stop 01/31/17 at 19:01; Status DC Metoprolol Tartrate (Lopressor) 25 mg BID PO Last administered on 02/02/17 08: 53; Start 02/01/17 at 09:00; Stop 02/02/17 at 10:16; Status DC Enoxaparin Sodium (Lovenox 30mg Syringe) 30 mg Q24H SQ Last administered on 08:48; Start 02/01/17 at 10:00 Metoprolol Tartrate (Lopressor) 50 mg BID PO Last administered on 02/03/17 22: 05; Start 02/02/17 at 21:00; Stop 02/04/17 at 07:58; Status DC Amlodipine Besylate (Norvasc) 5 mg DAILY PO Last administered on 02/03/17 08: 36; Start 02/02/17 at 10:30; Stop 02/04/17 at 07:15; Status DC Acetaminophen (Tylenol) 325 mg PRN Q4HRS PRN PO MILD PAIN / TEMP Last administered on 02/03/17 15:44; Start 02/02/17 at 10:45 Bisacodyl (Dulcolax Tab) 10 mg PRN DAILY PRN PO CONSTIPATION Last administered on 02/03/17 15:44; Start 02/03/17 at 09:45 Magnesium Hydroxide (Milk Of Magnesia) 2,400 mg PRN DAILY PRN PO CONSTIPATION Last administered on 02/03/17 11:03; Start 02/03/17 at 09:45 Senna/Docusate Sodium (Senna Plus) 1 tab PRN BID PRN PO CONSTIPATION Last administered on 02/03/17 11:03; Start 02/03/17 at 09:45 Ondansetron HCl (Zofran) 4 mg PRN Q6HRS PRN IV NAUSEA/VOMITING Last administered on 02/03/17 11:29; Start 02/03/17 at 11:30 Amlodipine Besylate (Norvasc) 5 mg 1X ONCE PO Last administered on 02/03/17 12:52; Start 02/03/17 at 11:45; Stop 02/03/17 at 11:46; Status DC Lisinopril (Prinivil) 10 mg DAILY PO Last administered on 02/03/17 15:44; Start 02/03/17 at 15:30; Stop 02/04/17 at 07:18; Status DC Amlodipine Besylate (Norvasc) 10 mg DAILY PO ; Start 02/04/17 at 09:00 Lisinopril (Prinivil) 20 mg DAILY PO ; Start 02/04/17 at 09:00; Stop 02/04/17 at 09:00; Status DC Metoprolol Tartrate (Lopressor) 5 mg Q6HRS IVP Last administered on 02/05/17 06:04; Start 02/04/17 at 08:30 Enalaprilat 2.5 mg 2.5 mg Q6HRS IV Last administered on 02/05/17 06:05; Start 02/04/17 at 08:30; Stop 02/05/17 at 09:36; Status DC Sodium Chloride (Iv Sodium Chloride 0.9% 1000ml Bag) 1,000 ml @ 75 mls/hr [id number] IV Last administered on 02/05/17 06:07; Start 02/04/17 at 18:00 Enalaprilat (Vasotec) 5 mg Q6HRS IV ; Start 02/05/17 at 12:00; Status UNV Active Scripts Active Reported Aspirin 325 Mg Tablet 1 Tab PO DAILY Metoprolol Tartrate 50 Mg Tablet 1 Tab PO DAILY Amlodipine Besylate 10 Mg Tablet 10 Mg PO DAILY Vitals/I & O Vital Sign - Last 24 Hours 02/04/17 02/04/17 02/04/17 02/04/17 11:00 11:43 13:04 13:05 Temp 98.1 98.1 Pulse 97 97 99 99 Resp 18 B/P 185/67 185/67 176/66 176/66 Pulse Ox 97 O2 Delivery Room Air 02/04/17 02/04/17 02/04/17 02/04/17 15:00 17:47 17:48 19:23 Temp 98.0 98.8 98.0 98.8 Pulse 91 91 91 90 Resp 18 18 B/P 168/71 168/71 168/71 147/63 Pulse Ox 94 93 O2 Delivery Room Air Room Air 02/04/17 02/04/17 02/04/17 02/04/17 20:00 22:55 23:02 23:04 Temp 98.4 98.4 Pulse 92 92 92 Resp 18 B/P 202/68 202/68 202/68 Pulse Ox 93 O2 Delivery Room Air Room Air 02/05/17 02/05/17 02/05/17 02/05/17 02:52 02:53 03:36 06:04 Temp 98.1 98.1 Pulse 91 91 94 94 Resp 18 18 B/P 193/67 193/67 171/60 191/69 Pulse Ox 96 O2 Delivery Room Air 02/05/17 02/05/17 02/05/17 02/05/17 06:05 07:10 07:43 08:47 Pulse 94 89 92 92 Resp 16 B/P 191/69 192/72 178/66 178/66 Pulse Ox 95 O2 Delivery Room Air Intake and Output 02/04/17 02/04/17 02/05/17 15:00 23:00 07:00 Intake Total 25 ml 0 ml Balance 25 ml 0 ml DANI NAYLOR MD Feb 05, 2017 09:41
--- NOTE | 2017-02-05 12:34 | PDOC ---
PROGRESS NOTES Assessment Problems Medical Problems: (1) CVA (cerebral vascular accident) Status: Acute Multiple subacute strokes, leading to [id number] state. Cardiac emboli suspected, but echocardiogram, transesophageal and transthoracic, negative for source Plan No need to repeat prior studies done last month Rehabilitation modalities She will need alf unit care. She was receiving home health, but has progressed. However, son wants to take her home. Aspirin for now. She is not an aspirin failure; there is no sign that she has had a new stroke since last month. Subjective No complaints Objective Vital Signs Date Time Temp Pulse Resp B/P Pulse Ox O2 Delivery O2 Flow Rate FiO2 02/05/17 12:03 90 141/67 02/05/17 10:40 98.4 18 94 Room Air 98.4 Intake and Output 02/05/17 07:00 Intake Total 25 ml Balance 25 ml Intake Oral 25 ml # Voids 3 PHYSICAL EXAM Alert. Knows her name, has aphasia She is pocketing some of her scrambled eggs PERRL. EOMI. CN: no focal findings. Muscle tone: normal. Muscle strength: 4/5 DTR: 1+ Plantar reflex: flexor Gait: not examined in bed. Sensory exam: no abnormal findings. No cerebellar signs elicited. Review of Relevant I have reviewed the following items jayashree (where applicable) has been applied. Labs Laboratory Tests Test 02/04/17 15:05 Thyroid Stimulating Hormone (TSH) 2.334uIU/mL (0.358-3.74) Laboratory Tests Test 02/04/17 15:05 Thyroid Stimulating Hormone (TSH) 2.334uIU/mL (0.358-3.74) Medications Current Medications Aspirin 325 mg 325 mg [id number] PO Last administered on 02/03/17 08:35; Start 01/30/17 at 08:00; Stop 02/05/17 at 10:56; Status DC Sodium Chloride (Iv Sodium Chloride 0.9% 1000ml Bag) 1,000 ml @ 75 mls/hr [id number] IV Last administered on 02/03/17 11:11; Start 01/30/17 at 15:00; Stop 02/03/17 at 15:16; Status DC Sodium Chloride (Normal Saline Flush) 10 ml QSHIFT PRN IV AFTER MEDS AND BLOOD DRAWS; Start 01/30/17 at 15:15 Lidocaine HCl (Xylocaine 2% Topical 5gm Tube) 1 braydon 1X ONCE TP Last administered on 01/30/17 13:56; Start 01/30/17 at 15:15; Stop 01/30/17 at 15:16 ; Status DC Lidocaine HCl (Viscous Lidocaine) 15 ml 1X ONCE MM Last administered on 13:56; Start 01/30/17 at 15:15; Stop 01/30/17 at 15:16; Status DC Benzocaine (Hurricaine One) 1 spray 1X ONCE MM Last administered on 01/30/17 13:56; Start 01/30/17 at 15:15; Stop 01/30/17 at 15:16; Status DC Lidocaine HCl (Xylocaine 2% Topical 5gm Tube) 1 braydon 1X ONCE TP ; Start at 06:00; Stop 01/31/17 at 06:01; Status DC Lidocaine HCl (Viscous Lidocaine) 15 ml 1X ONCE MM ; Start 01/31/17 at 06:00; Stop 01/31/17 at 06:01; Status DC Benzocaine (Hurricaine One) 1 spray 1X ONCE MM Last administered on 01/31/17 13:56; Start 01/31/17 at 06:00; Stop 01/31/17 at 06:01; Status DC Lidocaine HCl (Viscous Lidocaine) 15 ml STK-MED ONCE .ROUTE ; Start 01/31/17 at 13:32; Stop 01/31/17 at 13:33; Status DC Benzocaine (Hurricaine One) 1 spray STK-MED ONCE .ROUTE ; Start 01/31/17 at 13: 32; Stop 01/31/17 at 13:33; Status DC Lidocaine HCl 30 braydon 30 braydon STK-MED ONCE TP ; Start 01/31/17 at 13:33; Stop at 13:34; Status DC Lactated Ringer's (Iv Lactated Ringers) 1,000 ml @ 75 mls/hr [id number] IV Last administered on 01/31/17 14:00; Start 01/31/17 at 14:45; Stop 02/01/17 at 23:46 ; Status DC Hydralazine HCl (Apresoline) 10 mg PRN Q4HRS PRN IVP ELEVATED BP, SEE COMMENTS Last administered on 02/05/17 07:43; Start 01/31/17 at 15:30 Metoprolol Tartrate (Lopressor) 12.5 mg BID PO Last administered on 01/31/17 17:24; Start 01/31/17 at 17:30; Stop 01/31/17 at 18:29; Status DC Metoprolol Tartrate (Lopressor) 25 mg BID PO ; Start 01/31/17 at 21:00; Stop at 21:00; Status DC Metoprolol Tartrate (Lopressor) 12.5 mg 1X ONCE PO Last administered on 19:00; Start 01/31/17 at 19:00; Stop 01/31/17 at 19:01; Status DC Metoprolol Tartrate (Lopressor) 25 mg BID PO Last administered on 02/02/17 08: 53; Start 02/01/17 at 09:00; Stop 02/02/17 at 10:16; Status DC Enoxaparin Sodium (Lovenox 30mg Syringe) 30 mg Q24H SQ Last administered on 08:48; Start 02/01/17 at 10:00 Metoprolol Tartrate (Lopressor) 50 mg BID PO Last administered on 02/03/17 22: 05; Start 02/02/17 at 21:00; Stop 02/04/17 at 07:58; Status DC Amlodipine Besylate (Norvasc) 5 mg DAILY PO Last administered on 02/03/17 08: 36; Start 02/02/17 at 10:30; Stop 02/04/17 at 07:15; Status DC Acetaminophen (Tylenol) 325 mg PRN Q4HRS PRN PO MILD PAIN / TEMP Last administered on 02/03/17 15:44; Start 02/02/17 at 10:45 Bisacodyl (Dulcolax Tab) 10 mg PRN DAILY PRN PO CONSTIPATION Last administered on 02/03/17 15:44; Start 02/03/17 at 09:45 Magnesium Hydroxide (Milk Of Magnesia) 2,400 mg PRN DAILY PRN PO CONSTIPATION Last administered on 02/03/17 11:03; Start 02/03/17 at 09:45 Senna/Docusate Sodium (Senna Plus) 1 tab PRN BID PRN PO CONSTIPATION Last administered on 02/03/17 11:03; Start 02/03/17 at 09:45 Ondansetron HCl (Zofran) 4 mg PRN Q6HRS PRN IV NAUSEA/VOMITING Last administered on 02/03/17 11:29; Start 02/03/17 at 11:30 Amlodipine Besylate (Norvasc) 5 mg 1X ONCE PO Last administered on 02/03/17 12:52; Start 02/03/17 at 11:45; Stop 02/03/17 at 11:46; Status DC Lisinopril (Prinivil) 10 mg DAILY PO Last administered on 02/03/17 15:44; Start 02/03/17 at 15:30; Stop 02/04/17 at 07:18; Status DC Amlodipine Besylate (Norvasc) 10 mg DAILY PO ; Start 02/04/17 at 09:00 Lisinopril (Prinivil) 20 mg DAILY PO ; Start 02/04/17 at 09:00; Stop 02/04/17 at 09:00; Status DC Metoprolol Tartrate (Lopressor) 5 mg Q6HRS IVP Last administered on 02/05/17 11:59; Start 02/04/17 at 08:30 Enalaprilat 2.5 mg 2.5 mg Q6HRS IV Last administered on 02/05/17 06:05; Start 02/04/17 at 08:30; Stop 02/05/17 at 09:36; Status DC Sodium Chloride (Iv Sodium Chloride 0.9% 1000ml Bag) 1,000 ml @ 75 mls/hr [id number] IV Last administered on 02/05/17 06:07; Start 02/04/17 at 18:00 Enalaprilat (Vasotec) 5 mg Q6HRS IV Last administered on 02/05/17 12:03; Start 02/05/17 at 12:00 Aspirin (Aspirin) 300 mg DAILY NV ; Start 02/06/17 at 09:00 Active Scripts Active Reported Aspirin 325 Mg Tablet 1 Tab PO DAILY Metoprolol Tartrate 50 Mg Tablet 1 Tab PO DAILY Amlodipine Besylate 10 Mg Tablet 10 Mg PO DAILY Vitals/I & O Vital Sign - Last 24 Hours 02/04/17 02/04/17 02/04/1717 13:04 13:05 15:00 17:47 Temp 98.0 98.0 Pulse 99 99 91 91 Resp 18 B/P 176/66 176/66 168/71 168/71 Pulse Ox 94 O2 Delivery Room Air 02/04/17 02/04/17 02/04/17 02/04/17 17:48 19:23 20:00 22:55 Temp 98.8 98.4 98.8 98.4 Pulse 91 90 92 Resp 18 18 B/P 168/71 147/63 202/68 Pulse Ox 93 93 O2 Delivery Room Air Room Air Room Air 02/04/17 02/04/17 02/05/17 02/05/17 23:02 23:04 02:52 02:53 Temp 98.1 98.1 Pulse 92 92 91 91 Resp 18 B/P 202/68 202/68 193/67 193/67 Pulse Ox 96 O2 Delivery Room Air 02/05/17 02/05/17 02/05/17 02/05/17 03:36 06:04 06:05 07:10 Pulse 94 94 94 89 Resp 18 16 B/P 171/60 191/69 191/69 192/72 Pulse Ox 95 O2 Delivery Room Air 02/05/17 02/05/17 02/05/17 02/05/17 07:43 08:00 08:47 10:40 Temp 98.4 98.4 Pulse 92 92 90 Resp 18 B/P 178/66 178/66 141/67 Pulse Ox 94 O2 Delivery Room Air Room Air 02/05/17 02/05/17 11:59 12:03 Pulse 90 90 B/P 141/67 141/67 Intake and Output 02/04/17 02/04/17 02/05/17 15:00 23:00 07:00 Intake Total 25 ml 0 ml Balance 25 ml 0 ml YFN MADDOX MD Feb 05, 2017 12:34
--- NOTE | 2017-02-05 12:59 | PDOC ---
Subjective: Subjective: "I want to go home." Objective: Objective: Per RN - no result w/ tap water enema last night. Vital Signs: Vital Signs Date Time Temp Pulse Resp B/P Pulse Ox O2 Delivery O2 Flow Rate FiO2 02/05/17 12:03 90 141/67 02/05/17 10:40 98.4 18 94 Room Air 98.4 Labs: Laboratory Tests Test 02/04/17 15:05 Thyroid Stimulating Hormone (TSH) 2.334uIU/mL Imaging: [employer] Bedside Swallow Eval: BSE repeated d/t change in mental status since SOC on 01/30/17. Noted signif. decline in swallow function since 01/30/17. Pt w/ limited ability to obtain PO bolus from spoon and demo'd prolonged oral A-P transport &/or oral holding, which signif. increases risk for aspiration. Pt spit out puree trial, after producing gagging sound, (not s/s aspiration) therefore unable to determine unable vs unwilling. Deficits appear primarily oral as pharyngeal swallow was marked by mildly decreased hyolaryngeal mvmt to palpation, but w/ limited number of trials. Pt also unable to produce phonation post PO trials w/ max cues provided, so unable to fully assess all parameters for possible s/s aspiration. Etiology of mental status decline since 01/30/17 unknown at this time. Duration of need for NPO dependent on improved mental status. Recommendations: NPO. Will continue [employer] f/u to determine safety of PO intake. PE: GEN: NAD, sitting in chair LUNGS: CTAB HEART: RRR ABD: BS+, S/ND/NT NEURO/PSYCH: alert, asks where her kids are, repeats she wants to go home, won' t let go of my hand A/P: Constipation -unclear timing of last BM but none since admission even w/ tap water enema last night -no abnormality on first x-ray, another KUB ordered today -normal TSH -non-tender abd on exam H/o multiple strokes w/ dementia -NPO w/ decline in swallow function per [employer] -neuro following, PC consult ordered -- Await interval x-ray. Will review w/ Dr. Maloney. MIGUELINA YBARRA Feb 05, 2017 12:59 MARYANN MALONEY MD Feb 05, 2017 13:14
--- NOTE | 2017-02-05 14:29 | PDOC ---
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 Physical Debility due to above Vascular Dementia worsening. Constipation HLD Plan fu with gi, neuro pt failed swallow study today, npo now add procalamine pt wants to go home , but likely need SNF hold po meds, increase vasotec to 5mg iv q6h, dc metoprolol iv for now cont Ptot change asa to SUPP GET kub FOR constipation, if ok, cont enema prn PAT consult for code status History of Present Illness History of Present Illness not talking and failed swallow today. able to walk last sunday BP still high constipation Vitals Vitals Vital Signs Date Time Temp Pulse Resp B/P Pulse Ox O2 Delivery O2 Flow Rate FiO2 02/05/17 12:03 90 141/67 02/05/17 10:40 98.4 18 94 Room Air 98.4 Physical Exam General: Alert, Other (alert, working with PT) Heart: Regular rate, Normal S1, Normal S2 Lungs: Clear Abdomen: Normal bowel sounds, Soft Extremities: No clubbing, No edema Labs LABS Laboratory Tests Test 02/04/17 15:05 Thyroid Stimulating Hormone (TSH) 2.334uIU/mL (0.358-3.74) Review of Systems Review of Systems no fever, chills, sob or chest pain Assessment and Plan Assessmemt and Plan Problems Medical Problems: (1) CVA (cerebral vascular accident) Status: Acute Problems: Comment Review of Relevant I have reviewed the following items jayashree (where applicable) has been applied. Labs Laboratory Tests Test 02/04/17 15:05 Thyroid Stimulating Hormone (TSH) 2.334uIU/mL (0.358-3.74) Laboratory Tests Test 02/04/17 15:05 Thyroid Stimulating Hormone (TSH) 2.334uIU/mL (0.358-3.74) Medications Current Medications Aspirin 325 mg 325 mg [id number] PO Last administered on 02/03/17 08:35; Start 01/30/17 at 08:00; Stop 02/05/17 at 10:56; Status DC Sodium Chloride (Iv Sodium Chloride 0.9% 1000ml Bag) 1,000 ml @ 75 mls/hr [id number] IV Last administered on 02/03/17 11:11; Start 01/30/17 at 15:00; Stop 02/03/17 at 15:16; Status DC Sodium Chloride (Normal Saline Flush) 10 ml QSHIFT PRN IV AFTER MEDS AND BLOOD DRAWS; Start 01/30/17 at 15:15 Lidocaine HCl (Xylocaine 2% Topical 5gm Tube) 1 braydon 1X ONCE TP Last administered on 01/30/17 13:56; Start 01/30/17 at 15:15; Stop 01/30/17 at 15:16 ; Status DC Lidocaine HCl (Viscous Lidocaine) 15 ml 1X ONCE MM Last administered on 13:56; Start 01/30/17 at 15:15; Stop 01/30/17 at 15:16; Status DC Benzocaine (Hurricaine One) 1 spray 1X ONCE MM Last administered on 01/30/17 13:56; Start 01/30/17 at 15:15; Stop 01/30/17 at 15:16; Status DC Lidocaine HCl (Xylocaine 2% Topical 5gm Tube) 1 braydon 1X ONCE TP ; Start at 06:00; Stop 01/31/17 at 06:01; Status DC Lidocaine HCl (Viscous Lidocaine) 15 ml 1X ONCE MM ; Start 01/31/17 at 06:00; Stop 01/31/17 at 06:01; Status DC Benzocaine (Hurricaine One) 1 spray 1X ONCE MM Last administered on 01/31/17 13:56; Start 01/31/17 at 06:00; Stop 01/31/17 at 06:01; Status DC Lidocaine HCl (Viscous Lidocaine) 15 ml STK-MED ONCE .ROUTE ; Start 01/31/17 at 13:32; Stop 01/31/17 at 13:33; Status DC Benzocaine (Hurricaine One) 1 spray STK-MED ONCE .ROUTE ; Start 01/31/17 at 13: 32; Stop 01/31/17 at 13:33; Status DC Lidocaine HCl 30 braydon 30 braydon STK-MED ONCE TP ; Start 01/31/17 at 13:33; Stop at 13:34; Status DC Lactated Ringer's (Iv Lactated Ringers) 1,000 ml @ 75 mls/hr [id number] IV Last administered on 01/31/17 14:00; Start 01/31/17 at 14:45; Stop 02/01/17 at 23:46 ; Status DC Hydralazine HCl (Apresoline) 10 mg PRN Q4HRS PRN IVP ELEVATED BP, SEE COMMENTS Last administered on 02/05/17 07:43; Start 01/31/17 at 15:30 Metoprolol Tartrate (Lopressor) 12.5 mg BID PO Last administered on 01/31/17 17:24; Start 01/31/17 at 17:30; Stop 01/31/17 at 18:29; Status DC Metoprolol Tartrate (Lopressor) 25 mg BID PO ; Start 01/31/17 at 21:00; Stop at 21:00; Status DC Metoprolol Tartrate (Lopressor) 12.5 mg 1X ONCE PO Last administered on 19:00; Start 01/31/17 at 19:00; Stop 01/31/17 at 19:01; Status DC Metoprolol Tartrate (Lopressor) 25 mg BID PO Last administered on 02/02/17 08: 53; Start 02/01/17 at 09:00; Stop 02/02/17 at 10:16; Status DC Enoxaparin Sodium (Lovenox 30mg Syringe) 30 mg Q24H SQ Last administered on 08:48; Start 02/01/17 at 10:00 Metoprolol Tartrate (Lopressor) 50 mg BID PO Last administered on 02/03/17 22: 05; Start 02/02/17 at 21:00; Stop 02/04/17 at 07:58; Status DC Amlodipine Besylate (Norvasc) 5 mg DAILY PO Last administered on 02/03/17 08: 36; Start 02/02/17 at 10:30; Stop 02/04/17 at 07:15; Status DC Acetaminophen (Tylenol) 325 mg PRN Q4HRS PRN PO MILD PAIN / TEMP Last administered on 02/03/17 15:44; Start 02/02/17 at 10:45 Bisacodyl (Dulcolax Tab) 10 mg PRN DAILY PRN PO CONSTIPATION Last administered on 02/03/17 15:44; Start 02/03/17 at 09:45 Magnesium Hydroxide (Milk Of Magnesia) 2,400 mg PRN DAILY PRN PO CONSTIPATION Last administered on 02/03/17 11:03; Start 02/03/17 at 09:45 Senna/Docusate Sodium (Senna Plus) 1 tab PRN BID PRN PO CONSTIPATION Last administered on 02/03/17 11:03; Start 02/03/17 at 09:45 Ondansetron HCl (Zofran) 4 mg PRN Q6HRS PRN IV NAUSEA/VOMITING Last administered on 02/03/17 11:29; Start 02/03/17 at 11:30 Amlodipine Besylate (Norvasc) 5 mg 1X ONCE PO Last administered on 02/03/17 12:52; Start 02/03/17 at 11:45; Stop 02/03/17 at 11:46; Status DC Lisinopril (Prinivil) 10 mg DAILY PO Last administered on 02/03/17 15:44; Start 02/03/17 at 15:30; Stop 02/04/17 at 07:18; Status DC Amlodipine Besylate (Norvasc) 10 mg DAILY PO ; Start 02/04/17 at 09:00 Lisinopril (Prinivil) 20 mg DAILY PO ; Start 02/04/17 at 09:00; Stop 02/04/17 at 09:00; Status DC Metoprolol Tartrate (Lopressor) 5 mg Q6HRS IVP Last administered on 02/05/17 11:59; Start 02/04/17 at 08:30 Enalaprilat 2.5 mg 2.5 mg Q6HRS IV Last administered on 02/05/17 06:05; Start 02/04/17 at 08:30; Stop 02/05/17 at 09:36; Status DC Sodium Chloride (Iv Sodium Chloride 0.9% 1000ml Bag) 1,000 ml @ 75 mls/hr [id number] IV Last administered on 02/05/17 06:07; Start 02/04/17 at 18:00 Enalaprilat (Vasotec) 5 mg Q6HRS IV Last administered on 02/05/17 12:03; Start 02/05/17 at 12:00 Aspirin (Aspirin) 300 mg DAILY NE ; Start 02/06/17 at 09:00 Active Scripts Active Reported Aspirin 325 Mg Tablet 1 Tab PO DAILY Metoprolol Tartrate 50 Mg Tablet 1 Tab PO DAILY Amlodipine Besylate 10 Mg Tablet 10 Mg PO DAILY Vitals/I & O Vital Sign - Last 24 Hours 02/04/17 02/04/17 02/04/17 02/04/17 15:00 17:47 17:48 19:23 Temp 98.0 98.8 98.0 98.8 Pulse 91 91 91 90 Resp 18 18 B/P 168/71 168/71 168/71 147/63 Pulse Ox 94 93 O2 Delivery Room Air Room Air 02/04/17 02/04/17 02/04/17 02/04/17 20:00 22:55 23:02 23:04 Temp 98.4 98.4 Pulse 92 92 92 Resp 18 B/P 202/68 202/68 202/68 Pulse Ox 93 O2 Delivery Room Air Room Air 02/05/17 02/05/17 02/05/17 02/05/17 02:52 02:53 03:36 06:04 Temp 98.1 98.1 Pulse 91 91 94 94 Resp 18 18 B/P 193/67 193/67 171/60 191/69 Pulse Ox 96 O2 Delivery Room Air 02/05/17 02/05/17 02/05/17 02/05/17 06:05 07:10 07:43 08:00 Pulse 94 89 92 Resp 16 B/P 191/69 192/72 178/66 Pulse Ox 95 O2 Delivery Room Air Room Air 02/05/17 02/05/17 02/05/17 02/05/17 08:47 10:40 11:59 12:03 Temp 98.4 98.4 Pulse 92 90 90 90 Resp 18 B/P 178/66 141/67 141/67 141/67 Pulse Ox 94 O2 Delivery Room Air Intake and Output 02/04/17 02/04/17 02/05/17 15:00 23:00 07:00 Intake Total 25 ml 0 ml Balance 25 ml 0 ml TEDDY BRIZUELA MD Feb 05, 2017 14:29
[2017-02-05] MEDS ORDERED: DOCUSATE SODIUM 283 MG/5 ML ENEMA. PR PRN (14:30)
[2017-02-05] MEDS ORDERED: SODIUM PHOSPHATES 19/7GM 133 ML ENEMA. PR PRN (14:30)
[2017-02-05] MEDS: AA 2.75%/CALCIUM/LYTES/D5W 2,000 ML IV SCH (14:55)
--- NOTE | 2017-02-05 16:04 | PDOC2 ---
PALLIATIVE CARE Palliative Care Note Palliative Care Consult requested by Dr. Joshua to address code status and plan of care Information obtained from medical record. Diagnosis; Accelerate HTN Dysphagia with bl stroke Multiple subacute infarcts right frontal lobe and left temporal lobe. Physical Debility due to above Vascular Dementia worsening. Constipation HLD Unable to communicate with patient. Attempted to reach son Juanpablo. Message left to return call SISI RAMÍREZ Feb 05, 2017 16:04
--- NOTE | 2017-02-05 16:11 | RAD ---
SELENA, 02/05/2017: History: Constipation Comparison is made to a study from 02/03/2017. There is gas and stool scattered throughout the colon without evidence of obstruction. No organomegaly is seen. Scattered arterial calcifications are present. Surgical clips are evident at the groin levels. There are moderate degenerative changes in the spine. There is persistent pleural thickening in the left lateral costophrenic angle, probably due to pleural fluid. IMPRESSION: No acute abdominal abnormality is detected.
[2017-02-06] MEDS: ENALAPRILAT 2.5 MG/2 ML VIAL. IV SCH ×2 (00:25→05:56)
[2017-02-06 03:05] VITALS: BP 188/72
[2017-02-06] MEDS: ACETAMINOPHEN 650 MG SUPP.RECT. PR PRN ×2 (04:11→10:41)
[2017-02-06] MEDS: hydrALAZINE 20 MG/ML VIAL. IVP PRN ×2 (04:11→08:39)
[2017-02-06 04:16] LABS: BASO # 0.2 x10^3/uL (0.0-0.2); BASO % 1 % (0-3); EOS % 0 % (0-3); HEMATOCRIT 30.4 % (36.0-47.0); LYMPH # 1.2 x10^3/uL (1.0-4.8); LYMPH % 11 % (24-48); MEAN CORPUSCULAR HEMOGLOBIN 27 pg (25-35); MEAN CORPUSCULAR HGB CONC 33 g/dL (31-37); MEAN CORPUSCULAR VOLUME 83 fL (79-100); MONO % 7 % (0-9); NEUT % 81 % (31-73); PLATELET COUNT 227 x10^3/uL (140-400); RED BLOOD COUNT 3.67 x10^6/uL (3.50-5.40); RED CELL DISTRIBUTION WIDTH 14.3 % (11.5-14.5); WHITE BLOOD COUNT 11.2 x10^3/uL (4.0-11.0)
[2017-02-06 04:35] LABS: CALCIUM 8.5 mg/dL (8.5-10.1); CREATININE 1.1 mg/dL (0.6-1.0); GFR 48.3; POTASSIUM 3.5 mmol/L (3.5-5.1)
[2017-02-06 06:11] VITALS: BP 161/74
[2017-02-06] MEDS: AMLODIPINE BESYLATE 10 MG TABLET PO SCH (07:17)
[2017-02-06 08:07] VITALS: BP 193/62
[2017-02-06] MEDS: ENOXAPARIN 30 MG/0.3 ML DISP.SYRIN. SQ SCH ×2 (08:39→21:22)
[2017-02-06] MEDS: ASPIRIN 300 MG SUPP.RECT PR SCH (08:39)
--- NOTE | 2017-02-06 09:32 | PDOC ---
PROGRESS NOTES Subjective Subjective She wants to go home. Objective Objective Vital Signs Date Time Temp Pulse Resp B/P Pulse Ox O2 Delivery O2 Flow Rate FiO2 02/06/17 08:39 90 193/62 02/06/17 08:07 98.4 20 95 Room Air 98.4 01/31/17 14:08 2 Intake and Output 02/06/17 07:00 Intake Total 833 ml Balance 833 ml Intake Oral 100 ml IV Total 733 ml # Voids 9 Physical Exam Physical Exam She is more awake and following few commands and moves all 4 extremities to commands.She is having some discomfort while trying to move her left lower extremity.She had crepitus on ROM of left knee.She is incontinent of bladder and her mouth is dry. Assessment Assessment Problems Medical Problems: (1) CVA (cerebral vascular accident) Status: Acute Plan Plan of Care To continue present care as tolerated. Comment Review of Relevant I have reviewed the following items jayashree (where applicable) has been applied. Labs Laboratory Tests Test 02/04/17 15:05 02/06/17 03:50 Thyroid Stimulating Hormone (TSH) 2.334uIU/mL (0.358-3.74) White Blood Count 11.2x10^3/uL (4.0-11.0) Red Blood Count 3.67x10^6/uL (3.50-5.40) Hemoglobin 10.0g/dL (12.0-15.5) Hematocrit 30.4% (36.0-47.0) Mean Corpuscular Volume 83fL (79-100) Mean Corpuscular Hemoglobin 27pg (25-35) Mean Corpuscular Hemoglobin Concent 33g/dL (31-37) Red Cell Distribution Width 14.3% (11.5-14.5) Platelet Count 227x10^3/uL (140-400) Neutrophils (%) (Auto) 81% (31-73) Lymphocytes (%) (Auto) 11% (24-48) Monocytes (%) (Auto) 7% (0-9) Eosinophils (%) (Auto) 0% (0-3) Basophils (%) (Auto) 1% (0-3) Neutrophils # (Auto) 9.0x10^3uL (1.8-7.7) Lymphocytes # (Auto) 1.2x10^3/uL (1.0-4.8) Monocytes # (Auto) 0.8x10^3/uL (0.0-1.1) Eosinophils # (Auto) 0.0x10^3/uL (0.0-0.7) Basophils # (Auto) 0.2x10^3/uL (0.0-0.2) Sodium Level 144mmol/L (136-145) Potassium Level 3.5mmol/L (3.5-5.1) Chloride Level 109mmol/L (98-107) Carbon Dioxide Level 23mmol/L (21-32) Anion Gap 12 (6-14) Blood Urea Nitrogen 22mg/dL (7-20) Creatinine 1.1mg/dL (0.6-1.0) Estimated GFR (Cockcroft-Gault) 48.3 Glucose Level 136mg/dL (70-99) Calcium Level 8.5mg/dL (8.5-10.1) Laboratory Tests Test 02/06/17 03:50 White Blood Count 11.2x10^3/uL (4.0-11.0) Red Blood Count 3.67x10^6/uL (3.50-5.40) Hemoglobin 10.0g/dL (12.0-15.5) Hematocrit 30.4% (36.0-47.0) Mean Corpuscular Volume 83fL (79-100) Mean Corpuscular Hemoglobin 27pg (25-35) Mean Corpuscular Hemoglobin Concent 33g/dL (31-37) Red Cell Distribution Width 14.3% (11.5-14.5) Platelet Count 227x10^3/uL (140-400) Neutrophils (%) (Auto) 81% (31-73) Lymphocytes (%) (Auto) 11% (24-48) Monocytes (%) (Auto) 7% (0-9) Eosinophils (%) (Auto) 0% (0-3) Basophils (%) (Auto) 1% (0-3) Neutrophils # (Auto) 9.0x10^3uL (1.8-7.7) Lymphocytes # (Auto) 1.2x10^3/uL (1.0-4.8) Monocytes # (Auto) 0.8x10^3/uL (0.0-1.1) Eosinophils # (Auto) 0.0x10^3/uL (0.0-0.7) Basophils # (Auto) 0.2x10^3/uL (0.0-0.2) Sodium Level 144mmol/L (136-145) Potassium Level 3.5mmol/L (3.5-5.1) Chloride Level 109mmol/L (98-107) Carbon Dioxide Level 23mmol/L (21-32) Anion Gap 12 (6-14) Blood Urea Nitrogen 22mg/dL (7-20) Creatinine 1.1mg/dL (0.6-1.0) Estimated GFR (Cockcroft-Gault) 48.3 Glucose Level 136mg/dL (70-99) Calcium Level 8.5mg/dL (8.5-10.1) Medications Current Medications Aspirin 325 mg 325 mg [id number] PO Last administered on 02/03/17 08:35; Start 01/30/17 at 08:00; Stop 02/05/17 at 10:56; Status DC Sodium Chloride (Iv Sodium Chloride 0.9% 1000ml Bag) 1,000 ml @ 75 mls/hr [id number] IV Last administered on 02/03/17 11:11; Start 01/30/17 at 15:00; Stop 02/03/17 at 15:16; Status DC Sodium Chloride (Normal Saline Flush) 10 ml QSHIFT PRN IV AFTER MEDS AND BLOOD DRAWS; Start 01/30/17 at 15:15 Lidocaine HCl (Xylocaine 2% Topical 5gm Tube) 1 braydon 1X ONCE TP Last administered on 01/30/17 13:56; Start 01/30/17 at 15:15; Stop 01/30/17 at 15:16 ; Status DC Lidocaine HCl (Viscous Lidocaine) 15 ml 1X ONCE MM Last administered on 13:56; Start 01/30/17 at 15:15; Stop 01/30/17 at 15:16; Status DC Benzocaine (Hurricaine One) 1 spray 1X ONCE MM Last administered on 01/30/17 13:56; Start 01/30/17 at 15:15; Stop 01/30/17 at 15:16; Status DC Lidocaine HCl (Xylocaine 2% Topical 5gm Tube) 1 braydon 1X ONCE TP ; Start at 06:00; Stop 01/31/17 at 06:01; Status DC Lidocaine HCl (Viscous Lidocaine) 15 ml 1X ONCE MM ; Start 01/31/17 at 06:00; Stop 01/31/17 at 06:01; Status DC Benzocaine (Hurricaine One) 1 spray 1X ONCE MM Last administered on 01/31/17 13:56; Start 01/31/17 at 06:00; Stop 01/31/17 at 06:01; Status DC Lidocaine HCl (Viscous Lidocaine) 15 ml STK-MED ONCE .ROUTE ; Start 01/31/17 at 13:32; Stop 01/31/17 at 13:33; Status DC Benzocaine (Hurricaine One) 1 spray STK-MED ONCE .ROUTE ; Start 01/31/17 at 13: 32; Stop 01/31/17 at 13:33; Status DC Lidocaine HCl 30 braydon 30 braydon STK-MED ONCE TP ; Start 01/31/17 at 13:33; Stop at 13:34; Status DC Lactated Ringer's (Iv Lactated Ringers) 1,000 ml @ 75 mls/hr [id number] IV Last administered on 01/31/17 14:00; Start 01/31/17 at 14:45; Stop 02/01/17 at 23:46 ; Status DC Hydralazine HCl (Apresoline) 10 mg PRN Q4HRS PRN IVP ELEVATED BP, SEE COMMENTS Last administered on 02/06/17 08:39; Start 01/31/17 at 15:30 Metoprolol Tartrate (Lopressor) 12.5 mg BID PO Last administered on 01/31/17 17:24; Start 01/31/17 at 17:30; Stop 01/31/17 at 18:29; Status DC Metoprolol Tartrate (Lopressor) 25 mg BID PO ; Start 01/31/17 at 21:00; Stop at 21:00; Status DC Metoprolol Tartrate (Lopressor) 12.5 mg 1X ONCE PO Last administered on 19:00; Start 01/31/17 at 19:00; Stop 01/31/17 at 19:01; Status DC Metoprolol Tartrate (Lopressor) 25 mg BID PO Last administered on 02/02/17 08: 53; Start 02/01/17 at 09:00; Stop 02/02/17 at 10:16; Status DC Enoxaparin Sodium (Lovenox 30mg Syringe) 30 mg Q24H SQ Last administered on 08:39; Start 02/01/17 at 10:00 Metoprolol Tartrate (Lopressor) 50 mg BID PO Last administered on 02/03/17 22: 05; Start 02/02/17 at 21:00; Stop 02/04/17 at 07:58; Status DC Amlodipine Besylate (Norvasc) 5 mg DAILY PO Last administered on 02/03/17 08: 36; Start 02/02/17 at 10:30; Stop 02/04/17 at 07:15; Status DC Acetaminophen (Tylenol) 325 mg PRN Q4HRS PRN PO MILD PAIN / TEMP Last administered on 02/03/17 15:44; Start 02/02/17 at 10:45; Stop 02/06/17 at 03:45 ; Status DC Bisacodyl (Dulcolax Tab) 10 mg PRN DAILY PRN PO CONSTIPATION Last administered on 02/03/17 15:44; Start 02/03/17 at 09:45 Magnesium Hydroxide (Milk Of Magnesia) 2,400 mg PRN DAILY PRN PO CONSTIPATION Last administered on 02/03/17 11:03; Start 02/03/17 at 09:45 Senna/Docusate Sodium (Senna Plus) 1 tab PRN BID PRN PO CONSTIPATION Last administered on 02/03/17 11:03; Start 02/03/17 at 09:45 Ondansetron HCl (Zofran) 4 mg PRN Q6HRS PRN IV NAUSEA/VOMITING Last administered on 02/03/17 11:29; Start 02/03/17 at 11:30 Amlodipine Besylate (Norvasc) 5 mg 1X ONCE PO Last administered on 02/03/17 12:52; Start 02/03/17 at 11:45; Stop 02/03/17 at 11:46; Status DC Lisinopril (Prinivil) 10 mg DAILY PO Last administered on 02/03/17 15:44; Start 02/03/17 at 15:30; Stop 02/04/17 at 07:18; Status DC Amlodipine Besylate (Norvasc) 10 mg DAILY PO ; Start 02/04/17 at 09:00 Lisinopril (Prinivil) 20 mg DAILY PO ; Start 02/04/17 at 09:00; Stop 02/04/17 at 09:00; Status DC Metoprolol Tartrate (Lopressor) 5 mg Q6HRS IVP Last administered on 02/05/17 11:59; Start 02/04/17 at 08:30; Stop 02/05/17 at 14:27; Status DC Enalaprilat 2.5 mg 2.5 mg Q6HRS IV Last administered on 02/05/17 06:05; Start 02/04/17 at 08:30; Stop 02/05/17 at 09:36; Status DC Sodium Chloride (Iv Sodium Chloride 0.9% 1000ml Bag) 1,000 ml @ 75 mls/hr [id number] IV Last administered on 02/05/17 06:07; Start 02/04/17 at 18:00; Stop 02/05/17 at 14:27; Status DC Enalaprilat (Vasotec) 5 mg Q6HRS IV Last administered on 02/06/17 05:56; Start 02/05/17 at 12:00 Aspirin 300 mg 300 mg DAILY DC Last administered on 02/06/17 08:39; Start at 09:00 Amino Acids/ Electrolytes (Clinimix E 2.75%-5% Solution) 2,000 ml @ 80 mls/hr Q24H IV Last administered on 02/05/17 14:55; Start 02/05/17 at 15:00 Docusate Sodium (Enemeez) 283 mg PRN DAILY PRN DC CONSTIPATION; Start 02/05/17 at 14:30 Sodium Biphosphate/ Sodium Phosphate (Fleet Adult) 133 ml PRN DAILY PRN DC CONSTIPATION Last administered on 02/05/17 18:12; Start 02/05/17 at 14:30 Acetaminophen (Tylenol) 650 mg PRN Q6HRS PRN DC MILD PAIN / TEMP Last administered on 02/06/17 04:11; Start 02/06/17 at 03:45 Active Scripts Active Reported Aspirin 325 Mg Tablet 1 Tab PO DAILY Metoprolol Tartrate 50 Mg Tablet 1 Tab PO DAILY Amlodipine Besylate 10 Mg Tablet 10 Mg PO DAILY Vitals/I & O Vital Sign - Last 24 Hours 02/05/17 02/05/17 02/05/17 02/05/17 10:40 11:59 12:03 14:35 Temp 98.4 97.6 98.4 97.6 Pulse 90 90 90 98 Resp 18 18 B/P 141/67 141/67 141/67 144/66 Pulse Ox 94 96 O2 Delivery Room Air Room Air 02/05/17 02/05/17 02/05/17 02/05/17 16:54 17:36 19:05 20:00 Temp 97.7 98.6 97.7 98.6 Pulse 72 99 97 Resp B/P 188/82 193/74 190/72 Pulse Ox 93 95 O2 Delivery Room Air Room Air Room Air 02/05/17 02/05/17 02/06/17 02/06/17 22:08 23:27 00:25 03:05 Temp 100.8 101.3 100.8 101.3 Pulse 97 113 113 109 Resp 22 24 B/P 190/72 210/76 210/76 188/72 Pulse Ox 94 95 O2 Delivery Room Air Room Air 02/06/17 02/06/17 02/06/17 02/06/17 04:11 05:56 06:11 08:07 Temp 100.8 98.4 100.8 98.4 Pulse 109 93 90 Resp 20 B/P 188/72 161/74 161/74 193/62 Pulse Ox 95 O2 Delivery Room Air 02/06/17 08:39 Pulse 90 B/P 193/62 Intake and Output 02/05/17 02/05/17 02/06/17 15:00 23:00 07:00 Intake Total 193 ml 640 ml Balance 193 ml 640 ml DANI NAYLOR MD Feb 06, 2017 09:32
[2017-02-06] MEDS ORDERED: METOPROLOL TARTRATE 5 MG/5 ML VIAL. IVP SCH ×2 (10:00→12:00)
--- NOTE | 2017-02-06 10:22 | PDOC2 ---
PALLIATIVE CARE Palliative Care Note Palliative Care Spoke with son Juanpablo. Plan family meeting today at 1130 Diagnosis: CVA multiple old and new infarcts; failed swallow test--NPO with PPN IMPRESSION 1. There are recent, likely early subacute infarcts of the right frontal lobe and also centered in the left temporal lobe. Critical results were called to patient's nurse Amaris January 30, 2017 at 13:09, to inform doctor of findings. Given bilateral involvement, embolic source should be considered. 2. There is a large old infarct of the right parietal temporal lobes with associated gliosis, cortical involvement. There is also large old infarct of the left basal ganglia. Other scattered T2 and FLAIR hyperintense signal abnormality of the supratentorial white matter is nonspecific although probably due to chronic microvascular ischemic disease. Patient attempts to communicate. Moves all extremities. NPO Code Status: Full Code Discharge Plan: [facility]. 1130 Met with son Juanpablo. Estrella ANGULO, Casey Shin and Hu unable to attend. Reviewed above medical condition and results of MRI. Patient had been clear to Juanpablo and family that she would not want to be kept alive on Life Support Machines if heart stopped and she stopped breathing. Juanpablo understands that without this attempt she would likely . Antonio will be here to visit this afternoon and will confirm with him wishes about resuscitation and obtain signature on outside the hospital DNR/DNI. Juanpablo would like to give her the chance to improve but his concerned that this "might not happen" Informed patient has been accepted at [facility] for rehabilitation. He is in agreement with the plan. Will confirm with Antonio ANGULO. Rhea bingham will assist with family communication. SISI RAMÍREZ Feb 06, 2017 10:22
[2017-02-06 11:00] VITALS: BP 195/86
--- NOTE | 2017-02-06 11:25 | PDOC ---
PROGRESS NOTES Assessment Problems Medical Problems: (1) CVA (cerebral vascular accident) Status: Acute Multiple subacute strokes, leading to [id number] state. Cardiac emboli suspected, but echocardiogram, transesophageal and transthoracic, negative for source She has worsened over the past 2 days, now is unable to swallow Plan Repeat MRI Rehabilitation modalities correction unit care. Aspirin for now Subjective Indicates no pain Objective Vital Signs Date Time Temp Pulse Resp B/P Pulse Ox O2 Delivery O2 Flow Rate FiO2 02/06/17 11:00 100.6 60 20 195/86 96 Room Air 100.6 Intake and Output 02/06/17 07:00 Intake Total 833 ml Balance 833 ml Intake Oral 100 ml IV Total 733 ml # Voids 9 PHYSICAL EXAM Alert. Knows her name, has aphasia PERRL. EOMI. CN: no focal findings. Muscle tone: normal. Muscle strength: 4/5 DTR: 1+ Plantar reflex: flexor Gait: not examined in bed. Sensory exam: no abnormal findings. No cerebellar signs elicited. Review of Relevant I have reviewed the following items jayashree (where applicable) has been applied. Labs Laboratory Tests Test 02/04/17 15:05 02/06/17 03:50 Thyroid Stimulating Hormone (TSH) 2.334uIU/mL (0.358-3.74) White Blood Count 11.2x10^3/uL (4.0-11.0) Red Blood Count 3.67x10^6/uL (3.50-5.40) Hemoglobin 10.0g/dL (12.0-15.5) Hematocrit 30.4% (36.0-47.0) Mean Corpuscular Volume 83fL (79-100) Mean Corpuscular Hemoglobin 27pg (25-35) Mean Corpuscular Hemoglobin Concent 33g/dL (31-37) Red Cell Distribution Width 14.3% (11.5-14.5) Platelet Count 227x10^3/uL (140-400) Neutrophils (%) (Auto) 81% (31-73) Lymphocytes (%) (Auto) 11% (24-48) Monocytes (%) (Auto) 7% (0-9) Eosinophils (%) (Auto) 0% (0-3) Basophils (%) (Auto) 1% (0-3) Neutrophils # (Auto) 9.0x10^3uL (1.8-7.7) Lymphocytes # (Auto) 1.2x10^3/uL (1.0-4.8) Monocytes # (Auto) 0.8x10^3/uL (0.0-1.1) Eosinophils # (Auto) 0.0x10^3/uL (0.0-0.7) Basophils # (Auto) 0.2x10^3/uL (0.0-0.2) Sodium Level 144mmol/L (136-145) Potassium Level 3.5mmol/L (3.5-5.1) Chloride Level 109mmol/L (98-107) Carbon Dioxide Level 23mmol/L (21-32) Anion Gap 12 (6-14) Blood Urea Nitrogen 22mg/dL (7-20) Creatinine 1.1mg/dL (0.6-1.0) Estimated GFR (Cockcroft-Gault) 48.3 Glucose Level 136mg/dL (70-99) Calcium Level 8.5mg/dL (8.5-10.1) Laboratory Tests Test 02/06/17 03:50 White Blood Count 11.2x10^3/uL (4.0-11.0) Red Blood Count 3.67x10^6/uL (3.50-5.40) Hemoglobin 10.0g/dL (12.0-15.5) Hematocrit 30.4% (36.0-47.0) Mean Corpuscular Volume 83fL (79-100) Mean Corpuscular Hemoglobin 27pg (25-35) Mean Corpuscular Hemoglobin Concent 33g/dL (31-37) Red Cell Distribution Width 14.3% (11.5-14.5) Platelet Count 227x10^3/uL (140-400) Neutrophils (%) (Auto) 81% (31-73) Lymphocytes (%) (Auto) 11% (24-48) Monocytes (%) (Auto) 7% (0-9) Eosinophils (%) (Auto) 0% (0-3) Basophils (%) (Auto) 1% (0-3) Neutrophils # (Auto) 9.0x10^3uL (1.8-7.7) Lymphocytes # (Auto) 1.2x10^3/uL (1.0-4.8) Monocytes # (Auto) 0.8x10^3/uL (0.0-1.1) Eosinophils # (Auto) 0.0x10^3/uL (0.0-0.7) Basophils # (Auto) 0.2x10^3/uL (0.0-0.2) Sodium Level 144mmol/L (136-145) Potassium Level 3.5mmol/L (3.5-5.1) Chloride Level 109mmol/L (98-107) Carbon Dioxide Level 23mmol/L (21-32) Anion Gap 12 (6-14) Blood Urea Nitrogen 22mg/dL (7-20) Creatinine 1.1mg/dL (0.6-1.0) Estimated GFR (Cockcroft-Gault) 48.3 Glucose Level 136mg/dL (70-99) Calcium Level 8.5mg/dL (8.5-10.1) Medications Current Medications Aspirin 325 mg 325 mg [id number] PO Last administered on 02/03/17 08:35; Start 01/30/17 at 08:00; Stop 02/05/17 at 10:56; Status DC Sodium Chloride (Iv Sodium Chloride 0.9% 1000ml Bag) 1,000 ml @ 75 mls/hr [id number] IV Last administered on 02/03/17 11:11; Start 01/30/17 at 15:00; Stop 02/03/17 at 15:16; Status DC Sodium Chloride (Normal Saline Flush) 10 ml QSHIFT PRN IV AFTER MEDS AND BLOOD DRAWS; Start 01/30/17 at 15:15 Lidocaine HCl (Xylocaine 2% Topical 5gm Tube) 1 braydon 1X ONCE TP Last administered on 01/30/17 13:56; Start 01/30/17 at 15:15; Stop 01/30/17 at 15:16 ; Status DC Lidocaine HCl (Viscous Lidocaine) 15 ml 1X ONCE MM Last administered on 13:56; Start 01/30/17 at 15:15; Stop 01/30/17 at 15:16; Status DC Benzocaine (Hurricaine One) 1 spray 1X ONCE MM Last administered on 01/30/17 13:56; Start 01/30/17 at 15:15; Stop 01/30/17 at 15:16; Status DC Lidocaine HCl (Xylocaine 2% Topical 5gm Tube) 1 braydon 1X ONCE TP ; Start at 06:00; Stop 01/31/17 at 06:01; Status DC Lidocaine HCl (Viscous Lidocaine) 15 ml 1X ONCE MM ; Start 01/31/17 at 06:00; Stop 01/31/17 at 06:01; Status DC Benzocaine (Hurricaine One) 1 spray 1X ONCE MM Last administered on 01/31/17 13:56; Start 01/31/17 at 06:00; Stop 01/31/17 at 06:01; Status DC Lidocaine HCl (Viscous Lidocaine) 15 ml STK-MED ONCE .ROUTE ; Start 01/31/17 at 13:32; Stop 01/31/17 at 13:33; Status DC Benzocaine (Hurricaine One) 1 spray STK-MED ONCE .ROUTE ; Start 01/31/17 at 13: 32; Stop 01/31/17 at 13:33; Status DC Lidocaine HCl 30 braydon 30 braydon STK-MED ONCE TP ; Start 01/31/17 at 13:33; Stop at 13:34; Status DC Lactated Ringer's (Iv Lactated Ringers) 1,000 ml @ 75 mls/hr [id number] IV Last administered on 01/31/17 14:00; Start 01/31/17 at 14:45; Stop 02/01/17 at 23:46 ; Status DC Hydralazine HCl (Apresoline) 10 mg PRN Q4HRS PRN IVP ELEVATED BP, SEE COMMENTS Last administered on 02/06/17 08:39; Start 01/31/17 at 15:30 Metoprolol Tartrate (Lopressor) 12.5 mg BID PO Last administered on 01/31/17 17:24; Start 01/31/17 at 17:30; Stop 01/31/17 at 18:29; Status DC Metoprolol Tartrate (Lopressor) 25 mg BID PO ; Start 01/31/17 at 21:00; Stop at 21:00; Status DC Metoprolol Tartrate (Lopressor) 12.5 mg 1X ONCE PO Last administered on 19:00; Start 01/31/17 at 19:00; Stop 01/31/17 at 19:01; Status DC Metoprolol Tartrate (Lopressor) 25 mg BID PO Last administered on 02/02/17 08: 53; Start 02/01/17 at 09:00; Stop 02/02/17 at 10:16; Status DC Enoxaparin Sodium (Lovenox 30mg Syringe) 30 mg Q24H SQ Last administered on 08:39; Start 02/01/17 at 10:00 Metoprolol Tartrate (Lopressor) 50 mg BID PO Last administered on 02/03/17 22: 05; Start 02/02/17 at 21:00; Stop 02/04/17 at 07:58; Status DC Amlodipine Besylate (Norvasc) 5 mg DAILY PO Last administered on 02/03/17 08: 36; Start 02/02/17 at 10:30; Stop 02/04/17 at 07:15; Status DC Acetaminophen (Tylenol) 325 mg PRN Q4HRS PRN PO MILD PAIN / TEMP Last administered on 02/03/17 15:44; Start 02/02/17 at 10:45; Stop 02/06/17 at 03:45 ; Status DC Bisacodyl (Dulcolax Tab) 10 mg PRN DAILY PRN PO CONSTIPATION Last administered on 02/03/17 15:44; Start 02/03/17 at 09:45 Magnesium Hydroxide (Milk Of Magnesia) 2,400 mg PRN DAILY PRN PO CONSTIPATION Last administered on 02/03/17 11:03; Start 02/03/17 at 09:45 Senna/Docusate Sodium (Senna Plus) 1 tab PRN BID PRN PO CONSTIPATION Last administered on 02/03/17 11:03; Start 02/03/17 at 09:45 Ondansetron HCl (Zofran) 4 mg PRN Q6HRS PRN IV NAUSEA/VOMITING Last administered on 02/03/17 11:29; Start 02/03/17 at 11:30 Amlodipine Besylate (Norvasc) 5 mg 1X ONCE PO Last administered on 02/03/17 12:52; Start 02/03/17 at 11:45; Stop 02/03/17 at 11:46; Status DC Lisinopril (Prinivil) 10 mg DAILY PO Last administered on 02/03/17 15:44; Start 02/03/17 at 15:30; Stop 02/04/17 at 07:18; Status DC Amlodipine Besylate (Norvasc) 10 mg DAILY PO ; Start 02/04/17 at 09:00; Stop at 11:19; Status DC Lisinopril (Prinivil) 20 mg DAILY PO ; Start 02/04/17 at 09:00; Stop 02/04/17 at 09:00; Status DC Metoprolol Tartrate (Lopressor) 5 mg Q6HRS IVP Last administered on 02/05/17 11:59; Start 02/04/17 at 08:30; Stop 02/05/17 at 14:27; Status DC Enalaprilat 2.5 mg 2.5 mg Q6HRS IV Last administered on 02/05/17 06:05; Start 02/04/17 at 08:30; Stop 02/05/17 at 09:36; Status DC Sodium Chloride (Iv Sodium Chloride 0.9% 1000ml Bag) 1,000 ml @ 75 mls/hr [id number] IV Last administered on 02/05/17 06:07; Start 02/04/17 at 18:00; Stop 02/05/17 at 14:27; Status DC Enalaprilat (Vasotec) 5 mg Q6HRS IV Last administered on 02/06/17 05:56; Start 02/05/17 at 12:00; Stop 02/06/17 at 09:35; Status DC Aspirin 300 mg 300 mg DAILY [place] Last administered on 02/06/17 08:39; Start at 09:00 Amino Acids/ Electrolytes (Clinimix E 2.75%-5% Solution) 2,000 ml @ 80 mls/hr Q24H IV Last administered on 02/05/17 14:55; Start 02/05/17 at 15:00 Docusate Sodium (Enemeez) 283 mg PRN DAILY PRN [place] CONSTIPATION; Start 02/05/17 at 14:30 Sodium Biphosphate/ Sodium Phosphate (Fleet Adult) 133 ml PRN DAILY PRN [place] CONSTIPATION Last administered on 02/05/17 18:12; Start 02/05/17 at 14:30 Acetaminophen (Tylenol) 650 mg PRN Q6HRS PRN [place] MILD PAIN / TEMP Last administered on 02/06/17 10:41; Start 02/06/17 at 03:45 Metoprolol Tartrate (Lopressor) 5 mg Q6HRS IVP Last administered on 02/06/17 10:38; Start 02/06/17 at 10:00; Stop 02/06/17 at 11:19; Status DC Enalaprilat (Vasotec) 10 mg Q6HRS IV ; Start 02/06/17 at 12:00; Stop 02/06/17 at 12:00; Status DC Metoprolol Tartrate (Lopressor) 10 mg Q6HRS IVP ; Start 02/06/17 at 12:00; Status Cancel Amlodipine Besylate (Norvasc) 10 mg DAILY NG ; Start 02/07/17 at 09:00 Lisinopril (Prinivil) 40 mg DAILY NG ; Start 02/06/17 at 12:00 Active Scripts Active Reported Aspirin 325 Mg Tablet 1 Tab PO DAILY Metoprolol Tartrate 50 Mg Tablet 1 Tab PO DAILY Amlodipine Besylate 10 Mg Tablet 10 Mg PO DAILY Vitals/I & O Vital Sign - Last 24 Hours 02/05/17 02/05/17 02/05/17 02/05/17 11:59 12:03 14:35 16:54 Temp 97.6 97.6 Pulse 90 90 98 72 Resp 18 B/P 141/67 141/67 144/66 188/82 Pulse Ox 96 O2 Delivery Room Air 02/05/17 02/05/17 02/05/17 02/05/17 17:36 19:05 20:00 22:08 Temp 97.7 98.6 97.7 98.6 Pulse 99 97 97 Resp 16 16 B/P 193/74 190/72 190/72 Pulse Ox 93 95 O2 Delivery Room Air Room Air Room Air 02/05/17 02/06/17 02/06/17 02/06/17 23:27 00:25 03:05 04:11 Temp 100.8 101.3 100.8 101.3 Pulse 113 113 109 109 Resp 22 24 B/P 210/76 210/76 188/72 188/72 Pulse Ox 94 95 O2 Delivery Room Air Room Air 02/06/17 02/06/17 02/06/17 02/06/17 05:56 06:11 08:00 08:07 Temp 100.8 98.4 100.8 98.4 Pulse 93 90 Resp 20 B/P 161/74 161/74 193/62 Pulse Ox 95 O2 Delivery Room Air Room Air 02/06/17 02/06/17 02/06/17 08:39 10:38 11:00 Temp 100.6 100.6 Pulse 90 60 60 Resp 20 B/P 193/62 195/86 195/86 Pulse Ox 96 O2 Delivery Room Air Intake and Output 02/05/17 02/05/17 02/06/17 15:00 23:00 07:00 Intake Total 193 ml 640 ml Balance 193 ml 640 ml [id number] [email or web address] MD Feb 06, 2017 11:25
[2017-02-06] MEDS ORDERED: LISINOPRIL 40 MG TABLET. NG SCH (12:00)
[2017-02-06] MEDS ORDERED: ENALAPRILAT 2.5 MG/2 ML VIAL. IV SCH (12:00)
--- NOTE | 2017-02-06 12:21 | PDOC ---
Objective: Objective: Per RN - now has NG for nutrition, meds. Did pass some brown liquid. D/w Pat - met with son, planned another meeting later today w/ DPOA. Possibly transfer to [facility] for rehab. Vital Signs: Vital Signs Date Time Temp Pulse Resp B/P Pulse Ox O2 Delivery O2 Flow Rate FiO2 02/06/17 11:00 100.6 60 20 195/86 96 Room Air 100.6 Labs: Laboratory Tests Test 02/06/17 03:50 White Blood Count 11.2x10^3/uL Red Blood Count 3.67x10^6/uL Hemoglobin 10.0g/dL Hematocrit 30.4% Mean Corpuscular Volume 83fL Mean Corpuscular Hemoglobin 27pg Mean Corpuscular Hemoglobin Concent 33g/dL Red Cell Distribution Width 14.3% Platelet Count 227x10^3/uL Neutrophils (%) (Auto) 81% Lymphocytes (%) (Auto) 11% Monocytes (%) (Auto) 7% Eosinophils (%) (Auto) 0% Basophils (%) (Auto) 1% Neutrophils # (Auto) 9.0x10^3uL Lymphocytes # (Auto) 1.2x10^3/uL Monocytes # (Auto) 0.8x10^3/uL Eosinophils # (Auto) 0.0x10^3/uL Basophils # (Auto) 0.2x10^3/uL Sodium Level 144mmol/L Potassium Level 3.5mmol/L Chloride Level 109mmol/L Carbon Dioxide Level 23mmol/L Anion Gap 12 Blood Urea Nitrogen 22mg/dL Creatinine 1.1mg/dL Estimated GFR (Cockcroft-Gault) 48.3 Glucose Level 136mg/dL Calcium Level 8.5mg/dL Imaging: KUB 02/05/17 IMPRESSION: No acute abdominal abnormality is detected. PE: GEN: NAD LUNGS: CTAB HEART: RRR ABD: NABS, S/ND/NT, NG NEURO/PSYCH: confused A/P: Constipation -unclear timing of last BM, has now passed some brown liquid -x-rays unremarkable for obstruction, etc. H/o multiple strokes w/ dementia -NPO w/ decline in swallow function per [employer]EMAK[employer] MACHINE - now has NG -neuro following -PC meetings ongoing -- Will add Miralax and await further PC discussion. MIGUELINA YBARRA Feb 06, 2017 12:21
--- NOTE | 2017-02-06 12:40 | RAD ---
Portable abdomen, 02/06/2017: History: Check NG tube placement Comparison is made to yesterday's study. An NG tube is now in place extending into the body of the stomach. Gas is present in large and small bowel in a nonspecific pattern. Scattered vascular calcifications are evident. Left basilar pleural opacities are again noted. IMPRESSION: Interval insertion of an NG tube extending into the body of the stomach.
--- NOTE | 2017-02-06 12:49 | RAD ---
Indication left hip pain with movement. An AP view of the pelvis was obtained as well as a frog leg view of the left hip. Surgical clips are noted. An acute bony finding is not seen. Significant degenerative changes are not apparent particularly given the patient's age
--- NOTE | 2017-02-06 12:58 | PDOC ---
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 Physical Debility due to above Vascular Dementia worsening. Constipation HLD FEVER Plan fu with gi, neuro pt failed swallow study today, npo now add procalamine, pt wants to go home , but likely need SNF cont Ptot change asa to SUPP, may change to NGT , add lipitor per NGT GET kub FOR constipation, if ok, cont enema prn PAT consult for code status add NGT for feeding, add amlodipine, lisinopril and hydralazine for BP control, hydralazine and labetolol prn if bp >180/110 dc ppn tmr when NGT feeding accheive goal likely will dc pt to SNF in 1-2 days, should be DNR. family meeting pending brain MRI repeat 02/06 as per neuro CHECK ua, ucx, bcx, CXR for fever gi added po stool softner History of Present Illness History of Present Illness not talking and failed swallow since 02/04. able to walk last sunday BP still high constipation slightl better with enama fever dyphagia Vitals Vitals Vital Signs Date Time Temp Pulse Resp B/P Pulse Ox O2 Delivery O2 Flow Rate FiO2 02/06/17 11:00 100.6 60 20 195/86 96 Room Air 100.6 Physical Exam General: Alert, Other (alert, working with PT) Heart: Regular rate, Normal S1, Normal S2 Lungs: Clear Abdomen: Normal bowel sounds, Soft Extremities: No clubbing, No edema Labs LABS Laboratory Tests Test 02/06/17 03:50 White Blood Count 11.2x10^3/uL (4.0-11.0) Red Blood Count 3.67x10^6/uL (3.50-5.40) Hemoglobin 10.0g/dL (12.0-15.5) Hematocrit 30.4% (36.0-47.0) Mean Corpuscular Volume 83fL (79-100) Mean Corpuscular Hemoglobin 27pg (25-35) Mean Corpuscular Hemoglobin Concent 33g/dL (31-37) Red Cell Distribution Width 14.3% (11.5-14.5) Platelet Count 227x10^3/uL (140-400) Neutrophils (%) (Auto) 81% (31-73) Lymphocytes (%) (Auto) 11% (24-48) Monocytes (%) (Auto) 7% (0-9) Eosinophils (%) (Auto) 0% (0-3) Basophils (%) (Auto) 1% (0-3) Neutrophils # (Auto) 9.0x10^3uL (1.8-7.7) Lymphocytes # (Auto) 1.2x10^3/uL (1.0-4.8) Monocytes # (Auto) 0.8x10^3/uL (0.0-1.1) Eosinophils # (Auto) 0.0x10^3/uL (0.0-0.7) Basophils # (Auto) 0.2x10^3/uL (0.0-0.2) Sodium Level 144mmol/L (136-145) Potassium Level 3.5mmol/L (3.5-5.1) Chloride Level 109mmol/L (98-107) Carbon Dioxide Level 23mmol/L (21-32) Anion Gap 12 (6-14) Blood Urea Nitrogen 22mg/dL (7-20) Creatinine 1.1mg/dL (0.6-1.0) Estimated GFR (Cockcroft-Gault) 48.3 Glucose Level 136mg/dL (70-99) Calcium Level 8.5mg/dL (8.5-10.1) Review of Systems Review of Systems no fever, chills, sob or chest pain Assessment and Plan Assessmemt and Plan Problems Medical Problems: (1) CVA (cerebral vascular accident) Status: Acute Problems: Comment Review of Relevant I have reviewed the following items jayashree (where applicable) has been applied. Labs Laboratory Tests Test 02/04/17 15:05 02/06/17 03:50 Thyroid Stimulating Hormone (TSH) 2.334uIU/mL (0.358-3.74) White Blood Count 11.2x10^3/uL (4.0-11.0) Red Blood Count 3.67x10^6/uL (3.50-5.40) Hemoglobin 10.0g/dL (12.0-15.5) Hematocrit 30.4% (36.0-47.0) Mean Corpuscular Volume 83fL (79-100) Mean Corpuscular Hemoglobin 27pg (25-35) Mean Corpuscular Hemoglobin Concent 33g/dL (31-37) Red Cell Distribution Width 14.3% (11.5-14.5) Platelet Count 227x10^3/uL (140-400) Neutrophils (%) (Auto) 81% (31-73) Lymphocytes (%) (Auto) 11% (24-48) Monocytes (%) (Auto) 7% (0-9) Eosinophils (%) (Auto) 0% (0-3) Basophils (%) (Auto) 1% (0-3) Neutrophils # (Auto) 9.0x10^3uL (1.8-7.7) Lymphocytes # (Auto) 1.2x10^3/uL (1.0-4.8) Monocytes # (Auto) 0.8x10^3/uL (0.0-1.1) Eosinophils # (Auto) 0.0x10^3/uL (0.0-0.7) Basophils # (Auto) 0.2x10^3/uL (0.0-0.2) Sodium Level 144mmol/L (136-145) Potassium Level 3.5mmol/L (3.5-5.1) Chloride Level 109mmol/L (98-107) Carbon Dioxide Level 23mmol/L (21-32) Anion Gap 12 (6-14) Blood Urea Nitrogen 22mg/dL (7-20) Creatinine 1.1mg/dL (0.6-1.0) Estimated GFR (Cockcroft-Gault) 48.3 Glucose Level 136mg/dL (70-99) Calcium Level 8.5mg/dL (8.5-10.1) Laboratory Tests Test 02/06/17 03:50 White Blood Count 11.2x10^3/uL (4.0-11.0) Red Blood Count 3.67x10^6/uL (3.50-5.40) Hemoglobin 10.0g/dL (12.0-15.5) Hematocrit 30.4% (36.0-47.0) Mean Corpuscular Volume 83fL (79-100) Mean Corpuscular Hemoglobin 27pg (25-35) Mean Corpuscular Hemoglobin Concent 33g/dL (31-37) Red Cell Distribution Width 14.3% (11.5-14.5) Platelet Count 227x10^3/uL (140-400) Neutrophils (%) (Auto) 81% (31-73) Lymphocytes (%) (Auto) 11% (24-48) Monocytes (%) (Auto) 7% (0-9) Eosinophils (%) (Auto) 0% (0-3) Basophils (%) (Auto) 1% (0-3) Neutrophils # (Auto) 9.0x10^3uL (1.8-7.7) Lymphocytes # (Auto) 1.2x10^3/uL (1.0-4.8) Monocytes # (Auto) 0.8x10^3/uL (0.0-1.1) Eosinophils # (Auto) 0.0x10^3/uL (0.0-0.7) Basophils # (Auto) 0.2x10^3/uL (0.0-0.2) Sodium Level 144mmol/L (136-145) Potassium Level 3.5mmol/L (3.5-5.1) Chloride Level 109mmol/L (98-107) Carbon Dioxide Level 23mmol/L (21-32) Anion Gap 12 (6-14) Blood Urea Nitrogen 22mg/dL (7-20) Creatinine 1.1mg/dL (0.6-1.0) Estimated GFR (Cockcroft-Gault) 48.3 Glucose Level 136mg/dL (70-99) Calcium Level 8.5mg/dL (8.5-10.1) Medications Current Medications Aspirin 325 mg 325 mg [id number] PO Last administered on 02/03/17 08:35; Start 01/30/17 at 08:00; Stop 02/05/17 at 10:56; Status DC Sodium Chloride (Iv Sodium Chloride 0.9% 1000ml Bag) 1,000 ml @ 75 mls/hr [id number] IV Last administered on 02/03/17 11:11; Start 01/30/17 at 15:00; Stop 02/03/17 at 15:16; Status DC Sodium Chloride (Normal Saline Flush) 10 ml QSHIFT PRN IV AFTER MEDS AND BLOOD DRAWS; Start 01/30/17 at 15:15 Lidocaine HCl (Xylocaine 2% Topical 5gm Tube) 1 braydon 1X ONCE TP Last administered on 01/30/17 13:56; Start 01/30/17 at 15:15; Stop 01/30/17 at 15:16 ; Status DC Lidocaine HCl (Viscous Lidocaine) 15 ml 1X ONCE MM Last administered on 13:56; Start 01/30/17 at 15:15; Stop 01/30/17 at 15:16; Status DC Benzocaine (Hurricaine One) 1 spray 1X ONCE MM Last administered on 01/30/17 13:56; Start 01/30/17 at 15:15; Stop 01/30/17 at 15:16; Status DC Lidocaine HCl (Xylocaine 2% Topical 5gm Tube) 1 braydon 1X ONCE TP ; Start at 06:00; Stop 01/31/17 at 06:01; Status DC Lidocaine HCl (Viscous Lidocaine) 15 ml 1X ONCE MM ; Start 01/31/17 at 06:00; Stop 01/31/17 at 06:01; Status DC Benzocaine (Hurricaine One) 1 spray 1X ONCE MM Last administered on 01/31/17 13:56; Start 01/31/17 at 06:00; Stop 01/31/17 at 06:01; Status DC Lidocaine HCl (Viscous Lidocaine) 15 ml STK-MED ONCE .ROUTE ; Start 01/31/17 at 13:32; Stop 01/31/17 at 13:33; Status DC Benzocaine (Hurricaine One) 1 spray STK-MED ONCE .ROUTE ; Start 01/31/17 at 13: 32; Stop 01/31/17 at 13:33; Status DC Lidocaine HCl 30 braydon 30 braydon STK-MED ONCE TP ; Start 01/31/17 at 13:33; Stop at 13:34; Status DC Lactated Ringer's (Iv Lactated Ringers) 1,000 ml @ 75 mls/hr [id number] IV Last administered on 01/31/17 14:00; Start 01/31/17 at 14:45; Stop 02/01/17 at 23:46 ; Status DC Hydralazine HCl (Apresoline) 10 mg PRN Q4HRS PRN IVP ELEVATED BP, SEE COMMENTS Last administered on 02/06/17 08:39; Start 01/31/17 at 15:30 Metoprolol Tartrate (Lopressor) 12.5 mg BID PO Last administered on 01/31/17 17:24; Start 01/31/17 at 17:30; Stop 01/31/17 at 18:29; Status DC Metoprolol Tartrate (Lopressor) 25 mg BID PO ; Start 01/31/17 at 21:00; Stop at 21:00; Status DC Metoprolol Tartrate (Lopressor) 12.5 mg 1X ONCE PO Last administered on 19:00; Start 01/31/17 at 19:00; Stop 01/31/17 at 19:01; Status DC Metoprolol Tartrate (Lopressor) 25 mg BID PO Last administered on 02/02/17 08: 53; Start 02/01/17 at 09:00; Stop 02/02/17 at 10:16; Status DC Enoxaparin Sodium (Lovenox 30mg Syringe) 30 mg Q24H SQ Last administered on 08:39; Start 02/01/17 at 10:00 Metoprolol Tartrate (Lopressor) 50 mg BID PO Last administered on 02/03/17 22: 05; Start 02/02/17 at 21:00; Stop 02/04/17 at 07:58; Status DC Amlodipine Besylate (Norvasc) 5 mg DAILY PO Last administered on 02/03/17 08: 36; Start 02/02/17 at 10:30; Stop 02/04/17 at 07:15; Status DC Acetaminophen (Tylenol) 325 mg PRN Q4HRS PRN PO MILD PAIN / TEMP Last administered on 02/03/17 15:44; Start 02/02/17 at 10:45; Stop 02/06/17 at 03:45 ; Status DC Bisacodyl (Dulcolax Tab) 10 mg PRN DAILY PRN PO CONSTIPATION Last administered on 02/03/17 15:44; Start 02/03/17 at 09:45 Magnesium Hydroxide (Milk Of Magnesia) 2,400 mg PRN DAILY PRN PO CONSTIPATION Last administered on 02/03/17 11:03; Start 02/03/17 at 09:45 Senna/Docusate Sodium (Senna Plus) 1 tab PRN BID PRN PO CONSTIPATION Last administered on 02/03/17 11:03; Start 02/03/17 at 09:45 Ondansetron HCl (Zofran) 4 mg PRN Q6HRS PRN IV NAUSEA/VOMITING Last administered on 02/03/17 11:29; Start 02/03/17 at 11:30 Amlodipine Besylate (Norvasc) 5 mg 1X ONCE PO Last administered on 02/03/17 12:52; Start 02/03/17 at 11:45; Stop 02/03/17 at 11:46; Status DC Lisinopril (Prinivil) 10 mg DAILY PO Last administered on 02/03/17 15:44; Start 02/03/17 at 15:30; Stop 02/04/17 at 07:18; Status DC Amlodipine Besylate (Norvasc) 10 mg DAILY PO ; Start 02/04/17 at 09:00; Stop at 11:19; Status DC Lisinopril (Prinivil) 20 mg DAILY PO ; Start 02/04/17 at 09:00; Stop 02/04/17 at 09:00; Status DC Metoprolol Tartrate (Lopressor) 5 mg Q6HRS IVP Last administered on 02/05/17 11:59; Start 02/04/17 at 08:30; Stop 02/05/17 at 14:27; Status DC Enalaprilat 2.5 mg 2.5 mg Q6HRS IV Last administered on 02/05/17 06:05; Start 02/04/17 at 08:30; Stop 02/05/17 at 09:36; Status DC Sodium Chloride (Iv Sodium Chloride 0.9% 1000ml Bag) 1,000 ml @ 75 mls/hr [id number] IV Last administered on 02/05/17 06:07; Start 02/04/17 at 18:00; Stop 02/05/17 at 14:27; Status DC Enalaprilat (Vasotec) 5 mg Q6HRS IV Last administered on 02/06/17 05:56; Start 02/05/17 at 12:00; Stop 02/06/17 at 09:35; Status DC Aspirin 300 mg 300 mg DAILY NC Last administered on 02/06/17 08:39; Start at 09:00 Amino Acids/ Electrolytes (Clinimix E 2.75%-5% Solution) 2,000 ml @ 80 mls/hr Q24H IV Last administered on 02/05/17 14:55; Start 02/05/17 at 15:00 Docusate Sodium (Enemeez) 283 mg PRN DAILY PRN NC CONSTIPATION; Start 02/05/17 at 14:30 Sodium Biphosphate/ Sodium Phosphate (Fleet Adult) 133 ml PRN DAILY PRN NC CONSTIPATION Last administered on 02/05/17 18:12; Start 02/05/17 at 14:30 Acetaminophen (Tylenol) 650 mg PRN Q6HRS PRN NC MILD PAIN / TEMP Last administered on 02/06/17 10:41; Start 02/06/17 at 03:45 Metoprolol Tartrate (Lopressor) 5 mg Q6HRS IVP Last administered on 02/06/17 10:38; Start 02/06/17 at 10:00; Stop 02/06/17 at 11:19; Status DC Enalaprilat (Vasotec) 10 mg Q6HRS IV ; Start 02/06/17 at 12:00; Stop 02/06/17 at 12:00; Status DC Metoprolol Tartrate (Lopressor) 10 mg Q6HRS IVP ; Start 02/06/17 at 12:00; Status Cancel Amlodipine Besylate (Norvasc) 10 mg DAILY NG ; Start 02/07/17 at 09:00 Lisinopril (Prinivil) 40 mg DAILY NG ; Start 02/06/17 at 12:00 Polyethylene Glycol (miraLAX PACKET) 17 gm DAILY PEG ; Start 02/06/17 at 15:00 Active Scripts Active Reported Aspirin 325 Mg Tablet 1 Tab PO DAILY Metoprolol Tartrate 50 Mg Tablet 1 Tab PO DAILY Amlodipine Besylate 10 Mg Tablet 10 Mg PO DAILY Vitals/I & O Vital Sign - Last 24 Hours 02/05/17 02/05/17 02/05/17 02/05/17 14:35 16:54 17:36 19:05 Temp 97.6 97.7 98.6 97.6 97.7 98.6 Pulse 98 72 99 97 Resp 18 16 16 B/P 144/66 188/82 193/74 190/72 Pulse Ox 96 93 95 O2 Delivery Room Air Room Air Room Air 02/05/17 02/05/17 02/05/17 02/06/17 20:00 22:08 23:27 00:25 Temp 100.8 100.8 Pulse 97 113 113 Resp 22 B/P 190/72 210/76 210/76 Pulse Ox 94 O2 Delivery Room Air Room Air 02/06/17 02/06/17 02/06/17 02/06/17 03:05 04:11 05:56 06:11 Temp 101.3 100.8 101.3 100.8 Pulse 109 109 93 Resp 24 B/P 188/72 188/72 161/74 161/74 Pulse Ox 95 O2 Delivery Room Air 02/06/17 02/06/17 02/06/17 02/06/17 08:00 08:07 08:39 10:38 Temp 98.4 98.4 Pulse 90 90 60 Resp 20 B/P 193/62 193/62 195/86 Pulse Ox 95 O2 Delivery Room Air Room Air 02/06/17 11:00 Temp 100.6 100.6 Pulse 60 Resp 20 B/P 195/86 Pulse Ox 96 O2 Delivery Room Air Intake and Output 02/05/17 02/05/17 02/06/17 15:00 23:00 07:00 Intake Total 193 ml 640 ml Balance 193 ml 640 ml TEDDY BRIZUELA MD Feb 06, 2017 12:58
[2017-02-06] MEDS ORDERED: HYDRALAZINE 50 MG TABLET NG SCH (14:00)
[2017-02-06] MEDS: POLYETHYLENE GLYCOL 3350 17 GM PACKET. PEG SCH (14:24)
--- NOTE | 2017-02-06 14:25 | RAD ---
Indication fever. History of pneumonia. A single view of the chest was obtained. Comparison is made to an examination 3 days earlier. Postoperative changes are noted. A nasogastric tube has its tip in the mid body of the stomach. Pulmonary vasculature is similar to the previous exam. There is some volume loss in the left lower lobe. This may reflect atelectasis or pneumonia. The right lung is clear. There is no pneumothorax. IMPRESSION: Modest volume loss in the left lower lobe may reflect atelectasis or pneumonia
--- NOTE | 2017-02-06 14:34 | RAD ---
PROCEDURE MRI of the brain without contrast 02/06/2017 HISTORY History of acute bilateral strokes with worsening left-sided weakness. TECHNIQUE Unenhanced T1 weighted sagittal and axial, T2 weighted axial and coronal and FLAIR, gradient echo and diffusion weighted axial images of the brain were obtained. FINDINGS Comparison study is dated 02/06/2017. There is generalized parenchymal atrophy. Patchy, confluent and multiple focal areas of abnormally increased signal intensity are seen within the periventricular and subcortical white matter of both cerebral hemispheres on the FLAIR and T2 weighted images consistent with areas of small vessel ischemic disease. An area of encephalomalacia is again seen involving portions of the right temporal and right parietal lobe. Old areas of lacunar infarction are seen involving the left basal ganglia region, unchanged. An area of restricted diffusion is seen involving the medial right frontal parietal lobe. This measures 5.4 centimeters in greatest diameter. This has increased in size slightly since the previous examination (where it measured 4.8 cm). There is mild surrounding edema without evidence of significant mass effect. Small new areas of restricted diffusion are seen more superiorly involving the right frontoparietal lobe and the right parietal lobe. These measure 3 millimeters to 7 millimeters in size. There is mild surrounding edema without significant mass effect. An area of restricted diffusion is seen involving the left temporal lobe. This measures 6.5 centimeters in greatest diameter. It has increased in size since the previous examination were it measured 3.5 centimeters in greatest diameter. There has been interval increase in the surrounding edema and associated mass effect. No midline shift is seen. No additional acute parenchymal abnormality is seen. No extra-axial fluid collection is noted. Mild to moderate mucosal thickening is seen scattered throughout the paranasal sinuses. Normal flow voids are seen within the major vascular structures surrounding the brain parenchyma. IMPRESSION Interval increase in size of the areas of acute infarction involving the medial right frontal parietal lobe and the left temporal lobe. There has been interval increase in the surrounding edema and associated mass effect. No midline shift is seen. Additional new smaller areas of acute ischemia/infarction are seen involving the right frontoparietal and right parietal lobes as outlined above. The patient's nurse was notified of these findings. Electronically signed by: Nicholas Mcelroy MD (Feb 06, 2017 14:33:00)
[2017-02-06] MEDS: AA 2.75%/CALCIUM/LYTES/D5W 2,000 ML IV SCH (14:42)
--- NOTE | 2017-02-06 14:54 | RAD ---
2 views of the left knee without comparison for left knee pain with movement. Findings: There is no fracture, dislocation, or acute osseous abnormality identified. No joint effusion is seen. Minimal arthritic changes are evident. Postsurgical changes are seen throughout the thigh, and vascular calcifications are seen in multiple distributions. Impression: 1. No fracture or acute osseous abnormality of the knee.
[2017-02-06 15:00] VITALS: BP 165/72
[2017-02-06] MEDS ORDERED: CONTRAST GIVEN MC PRN (15:00)
[2017-02-06] MEDS ORDERED: IOHEXOL 350 MG/ML 100ML VIAL. IV ONE (15:00)
[2017-02-06 16:54] LABS: BILIRUBIN,URINE NEGATIVE (NEG); GLUCOSE,URINE NEGATIVE (NEG); NITRITE,URINE NEGATIVE (NEG); PH,URINE 7.5; PROTEIN,URINE >=300 mg/dL (NEG-TRACE); UROBILINOGEN,URINE 0.2 mg/dL (0.2 mg/dL)
[2017-02-06 17:07] LABS: RBC,URINE 0 /HPF (0-2)
[2017-02-06 17:08] LABS: BACTERIA,URINE 0 /HPF (0-FEW); SQUAMOUS EPITHELIAL CELL,UR OCC /LPF; WBC,URINE OCC /HPF (0-4)
--- NOTE | 2017-02-06 17:10 | RAD ---
Indication recent acute infarctions, both cerebral hemispheres. CTA targeted to the arch vessels off the aorta through the course of the carotid vessels and into the [place] was performed. MIP images were generated and reviewed. Volume rendered images were also generated and reviewed. Note is made of the MRI examination earlier this day demonstrating areas of recent or acute infarction in both cerebral hemispheres. In the brain a moderately large area of infarction is seen in the right parietal lobe. A similar large area of infarction is seen in the left temporal parietal area. A calvarial abnormality is not seen. There is opacification of the right sphenoid sinus and partial opacification of right ethmoid air cells. Mild sinusitis not excluded. The lung apices are clear. There appears to be some pleural fluid in both lungs. There are small nodules in both lobes of the thyroid. A dominant soft tissue mass in the neck is not seen. There is mild adenopathy. This is likely incidental. There are degenerative changes in the cervical spine. The innominate artery, left common carotid and left subclavian artery originate unremarkably off the arch of the aorta. No significant narrowing is seen at the origin of any of these vessels. The innominate artery bifurcates unremarkably into the right common carotid and right subclavian. Some slight plaquing is seen at the origin of the right subclavian. Marked stenosis is not seen throughout the course of the right subclavian visualized. The visualized left subclavian is also unremarkable. The right common carotid demonstrates some slight plaquing at the bifurcation but no significant stenosis. The right internal carotid is somewhat tortuous. There is moderate plaquing distally involving the internal carotid, just prior to the horizontal segment, but maximal stenosis is estimated at only 50%. Horizontal segment is unremarkable. There is considerable plaquing associated with the cavernous portion and the supraclinoid portion of the right internal carotid. On the left the common carotid is unremarkable. There is moderate plaquing without evidence of hemodynamically significant stenosis at the bifurcation. There is slight narrowing, less than 50%, distally involving the internal carotid prior to the horizontal segment. There is no significant stenosis. Similar to the contralateral side there is considerable plaquing associated with the cavernous and supraclinoid segments. Both vertebrals originate off their respective subclavian arteries. The right vertebral is dominant. The left vertebral is quite narrow throughout its course and is not seen in the posterior fossa. The basilar artery appears unremarkable. 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 The anterior cerebrals are seen and appear unremarkable. An additional vascular anomaly is not seen. IMPRESSION: Known evolving bilateral hemispheric infarcts are noted. No evidence of high-grade arterial stenosis involving either carotid bifurcation. Mild stenosis, estimated at approximately 50%, noted involving the distal right internal carotid artery. The right vertebral is dominant. The left vertebral was not definitely seen intracranially. 4 mm aneurysm left M1 segment
--- NOTE | 2017-02-06 18:02 | RAD ---
PROCEDURE Supine abdomen HISTORY NG tube placement. PATIENT PULLED OUT NG TUBE PLACED EARLIER. COMPARISON IMAGE SENT TECHNIQUE Supine view was taken of the abdomen COMPARISON Comparison made with a study from earlier today FINDINGS There is an NG tube which just reaches the stomach. The tube would be better positioned advanced 3-4 centimeters. There is contrast in the left renal collecting system. There is degenerative change in the lumbar spine. Bowel pattern is normal. There is a left pleural effusion. IMPRESSION 1. NG tube just reaches the stomach. Electronically signed by: Prabhakar Galan MD (Feb 06, 2017 18:01:19)
[2017-02-06 19:51] VITALS: BP 150/72
[2017-02-06] MEDS: ATORVASTATIN CALCIUM 40 MG TABLET. NG SCH (21:21)
[2017-02-07] VITALS (7 sets, daily range): BP systolic 111–209; BP diastolic 67–114
[2017-02-07] MEDS: LABETALOL 20 MG/4 ML DISP.SYRIN. IVP PRN (01:34)
[2017-02-07 04:46] LABS: BASO # 0.1 x10^3/uL (0.0-0.2); BASO % 1 % (0-3); EOS % 1 % (0-3); HEMOGLOBIN 10.5 g/dL (12.0-15.5); LYMPH # 1.6 x10^3/uL (1.0-4.8); LYMPH % 13 % (24-48); MEAN CORPUSCULAR HEMOGLOBIN 28 pg (25-35); MEAN CORPUSCULAR HGB CONC 34 g/dL (31-37); MEAN CORPUSCULAR VOLUME 82 fL (79-100); MONO % 8 % (0-9); NEUT % 77 % (31-73); PLATELET COUNT 263 x10^3/uL (140-400); RED CELL DISTRIBUTION WIDTH 14.2 % (11.5-14.5); WHITE BLOOD COUNT 12.1 x10^3/uL (4.0-11.0)
[2017-02-07 04:53] LABS: CALCIUM 8.7 mg/dL (8.5-10.1); GFR 53.9; POTASSIUM 3.7 mmol/L (3.5-5.1)
--- NOTE | 2017-02-07 06:17 | RAD ---
Abdomen AP: Reason for examination: NG tube placement. Comparison is made to previous study dated 02/06/2017. NG tube is present with the tip in the proximal stomach in the side port at the level of the EG junction. The tube should be advanced. No gross organomegaly is seen. Psoas muscles are symmetric. The bowel gas pattern is nonspecific. No acute bony abnormalities are evident. Impression: NG tube tip in the proximal stomach with the side port at the EG junction. The tube should be advanced further. Nonspecific gas pattern in the abdomen. Electronically signed by: Mandy Sharma MD (Feb 07, 2017 06:15:15)
[2017-02-07] MEDS: POLYETHYLENE GLYCOL 3350 17 GM PACKET. PEG SCH (07:08)
[2017-02-07] MEDS: ENOXAPARIN 30 MG/0.3 ML DISP.SYRIN. SQ SCH ×2 (07:35→21:26)
[2017-02-07] MEDS: ASPIRIN 300 MG SUPP.RECT PR SCH (07:35)
[2017-02-07] MEDS: hydrALAZINE 20 MG/ML VIAL. IVP PRN ×2 (08:00→15:07)
[2017-02-07] MEDS ORDERED: AMLODIPINE BESYLATE 10 MG TABLET NG SCH (09:00)
[2017-02-07] MEDS: AA 2.75%/CALCIUM/LYTES/D5W 2,000 ML IV SCH (10:36)
--- NOTE | 2017-02-07 10:41 | PDOC2 ---
PALLIATIVE CARE Palliative Care Note Palliative Care Patient resting. Did not awaken. Patient has pulled NG feeding tube out x 3 Spoke with Antonio, Son, DPOA. Antonio is out of town and can not come to family meeting until tomorrow. Plan family meeting at 9am tomorrow to review goals of care. Family is concerned that patient may not improve SISI RAMÍREZ Feb 07, 2017 10:41
--- NOTE | 2017-02-07 10:53 | PDOC ---
PROGRESS NOTES Subjective Subjective No new complaints. Objective Objective Vital Signs Date Time Temp Pulse Resp B/P Pulse Ox O2 Delivery O2 Flow Rate FiO2 02/07/17 08:00 Room Air 02/07/17 08:00 85 203/71 02/07/17 07:00 97.9 18 97 97.9 01/31/17 14:08 2 Intake and Output 02/07/17 07:00 Intake Total 0 ml Balance 0 ml Intake Oral 0 ml # Voids 7 Physical Exam Physical Exam She is awake but does not follow any commands. She pulled out NG tube twice yesterday and last night. Assessment Assessment Problems Medical Problems: (1) CVA (cerebral vascular accident) Status: Acute Plan Plan of Care Agree with palliative care consult. Comment Review of Relevant I have reviewed the following items [email or web address] (where applicable) has been applied. Labs Laboratory Tests Test 02/06/17 03:50 02/06/17 14:20 02/07/17 03:46 White Blood Count 11.2x10^3/uL (4.0-11.0) 12.1x10^3/uL (4.0-11.0) Red Blood Count 3.67x10^6/uL (3.50-5.40) 3.80x10^6/uL (3.50-5.40) Hemoglobin 10.0g/dL (12.0-15.5) 10.5g/dL (12.0-15.5) Hematocrit 30.4% (36.0-47.0) 31.0% (36.0-47.0) Mean Corpuscular Volume 83fL (79-100) 82fL (79-100) Mean Corpuscular Hemoglobin 27pg (25-35) 28pg (25-35) Mean Corpuscular Hemoglobin Concent 33g/dL (31-37) 34g/dL (31-37) Red Cell Distribution Width 14.3% (11.5-14.5) 14.2% (11.5-14.5) Platelet Count 227x10^3/uL (140-400) 263x10^3/uL (140-400) Neutrophils (%) (Auto) 81% (31-73) 77% (31-73) Lymphocytes (%) (Auto) 11% (24-48) 13% (24-48) Monocytes (%) (Auto) 7% (0-9) 8% (0-9) Eosinophils (%) (Auto) 0% (0-3) 1% (0-3) Basophils (%) (Auto) 1% (0-3) 1% (0-3) Neutrophils # (Auto) 9.0x10^3uL (1.8-7.7) 9.4x10^3uL (1.8-7.7) Lymphocytes # (Auto) 1.2x10^3/uL (1.0-4.8) 1.6x10^3/uL (1.0-4.8) Monocytes # (Auto) 0.8x10^3/uL (0.0-1.1) 0.9x10^3/uL (0.0-1.1) Eosinophils # (Auto) 0.0x10^3/uL (0.0-0.7) 0.2x10^3/uL (0.0-0.7) Basophils # (Auto) 0.2x10^3/uL (0.0-0.2) 0.1x10^3/uL (0.0-0.2) Sodium Level 144mmol/L (136-145) 141mmol/L (136-145) Potassium Level 3.5mmol/L (3.5-5.1) 3.7mmol/L (3.5-5.1) Chloride Level 109mmol/L (98-107) 106mmol/L (98-107) Carbon Dioxide Level 23mmol/L (21-32) 24mmol/L (21-32) Anion Gap 12 (6-14) 11 (6-14) Blood Urea Nitrogen 22mg/dL (7-20) 21mg/dL (7-20) Creatinine 1.1mg/dL (0.6-1.0) 1.0mg/dL (0.6-1.0) Estimated GFR (Cockcroft-Gault) 48.3 53.9 Glucose Level 136mg/dL (70-99) 147mg/dL (70-99) Calcium Level 8.5mg/dL (8.5-10.1) 8.7mg/dL (8.5-10.1) Urine Color Yellow Urine Clarity Clear Urine pH 7.5 Urine Specific [place] 1.015 Urine Protein >=300mg/dL (NEG-TRACE) Urine Glucose (UA) Negativemg/dL (NEG) Urine Ketones (Stick) Tracemg/dL (NEG) Urine Blood Negative (NEG) Urine Nitrite Negative (NEG) Urine Bilirubin Negative (NEG) Urine Urobilinogen Dipstick 0.2mg/dL (0.2 mg/dL) Urine Leukocyte Esterase Negative (NEG) Urine RBC 0/HPF (0-2) Urine WBC Occ/HPF (0-4) Urine Squamous Epithelial Cells Occ/LPF Urine Amorphous Sediment Present/HPF Urine Bacteria 0/HPF (0-FEW) Urine Mucus Mod/LPF Laboratory Tests Test 02/06/17 14:20 02/07/17 03:46 Urine Color Yellow Urine Clarity Clear Urine pH 7.5 Urine Specific [place] 1.015 Urine Protein >=300mg/dL (NEG-TRACE) Urine Glucose (UA) Negativemg/dL (NEG) Urine Ketones (Stick) Tracemg/dL (NEG) Urine Blood Negative (NEG) Urine Nitrite Negative (NEG) Urine Bilirubin Negative (NEG) Urine Urobilinogen Dipstick 0.2mg/dL (0.2 mg/dL) Urine Leukocyte Esterase Negative (NEG) Urine RBC 0/HPF (0-2) Urine WBC Occ/HPF (0-4) Urine Squamous Epithelial Cells Occ/LPF Urine Amorphous Sediment Present/HPF Urine Bacteria 0/HPF (0-FEW) Urine Mucus Mod/LPF White Blood Count 12.1x10^3/uL (4.0-11.0) Red Blood Count 3.80x10^6/uL (3.50-5.40) Hemoglobin 10.5g/dL (12.0-15.5) Hematocrit 31.0% (36.0-47.0) Mean Corpuscular Volume 82fL (79-100) Mean Corpuscular Hemoglobin 28pg (25-35) Mean Corpuscular Hemoglobin Concent 34g/dL (31-37) Red Cell Distribution Width 14.2% (11.5-14.5) Platelet Count 263x10^3/uL (140-400) Neutrophils (%) (Auto) 77% (31-73) Lymphocytes (%) (Auto) 13% (24-48) Monocytes (%) (Auto) 8% (0-9) Eosinophils (%) (Auto) 1% (0-3) Basophils (%) (Auto) 1% (0-3) Neutrophils # (Auto) 9.4x10^3uL (1.8-7.7) Lymphocytes # (Auto) 1.6x10^3/uL (1.0-4.8) Monocytes # (Auto) 0.9x10^3/uL (0.0-1.1) Eosinophils # (Auto) 0.2x10^3/uL (0.0-0.7) Basophils # (Auto) 0.1x10^3/uL (0.0-0.2) Sodium Level 141mmol/L (136-145) Potassium Level 3.7mmol/L (3.5-5.1) Chloride Level 106mmol/L (98-107) Carbon Dioxide Level 24mmol/L (21-32) Anion Gap 11 (6-14) Blood Urea Nitrogen 21mg/dL (7-20) Creatinine 1.0mg/dL (0.6-1.0) Estimated GFR (Cockcroft-Gault) 53.9 Glucose Level 147mg/dL (70-99) Calcium Level 8.7mg/dL (8.5-10.1) Medications Current Medications Aspirin 325 mg 325 mg [id number] PO Last administered on 02/03/17 08:35; Start 01/30/17 at 08:00; Stop 02/05/17 at 10:56; Status DC Sodium Chloride (Iv Sodium Chloride 0.9% 1000ml Bag) 1,000 ml @ 75 mls/hr [id number] IV Last administered on 02/03/17 11:11; Start 01/30/17 at 15:00; Stop 02/03/17 at 15:16; Status DC Sodium Chloride (Normal Saline Flush) 10 ml QSHIFT PRN IV AFTER MEDS AND BLOOD DRAWS; Start 01/30/17 at 15:15 Lidocaine HCl (Xylocaine 2% Topical 5gm Tube) 1 braydon 1X ONCE TP Last administered on 01/30/17 13:56; Start 01/30/17 at 15:15; Stop 01/30/17 at 15:16 ; Status DC Lidocaine HCl (Viscous Lidocaine) 15 ml 1X ONCE MM Last administered on 13:56; Start 01/30/17 at 15:15; Stop 01/30/17 at 15:16; Status DC Benzocaine (Hurricaine One) 1 spray 1X ONCE MM Last administered on 01/30/17 13:56; Start 01/30/17 at 15:15; Stop 01/30/17 at 15:16; Status DC Lidocaine HCl (Xylocaine 2% Topical 5gm Tube) 1 braydon 1X ONCE TP ; Start at 06:00; Stop 01/31/17 at 06:01; Status DC Lidocaine HCl (Viscous Lidocaine) 15 ml 1X ONCE MM ; Start 01/31/17 at 06:00; Stop 01/31/17 at 06:01; Status DC Benzocaine (Hurricaine One) 1 spray 1X ONCE MM Last administered on 01/31/17 13:56; Start 01/31/17 at 06:00; Stop 01/31/17 at 06:01; Status DC Lidocaine HCl (Viscous Lidocaine) 15 ml STK-MED ONCE .ROUTE ; Start 01/31/17 at 13:32; Stop 01/31/17 at 13:33; Status DC Benzocaine (Hurricaine One) 1 spray STK-MED ONCE .ROUTE ; Start 01/31/17 at 13: 32; Stop 01/31/17 at 13:33; Status DC Lidocaine HCl 30 braydon 30 braydon STK-MED ONCE TP ; Start 01/31/17 at 13:33; Stop at 13:34; Status DC Lactated Ringer's (Iv Lactated Ringers) 1,000 ml @ 75 mls/hr [id number] IV Last administered on 01/31/17 14:00; Start 01/31/17 at 14:45; Stop 02/01/17 at 23:46 ; Status DC Hydralazine HCl (Apresoline) 10 mg PRN Q4HRS PRN IVP ELEVATED BP, SEE COMMENTS Last administered on 02/07/17 08:00; Start 01/31/17 at 15:30 Metoprolol Tartrate (Lopressor) 12.5 mg BID PO Last administered on 01/31/17 17:24; Start 01/31/17 at 17:30; Stop 01/31/17 at 18:29; Status DC Metoprolol Tartrate (Lopressor) 25 mg BID PO ; Start 01/31/17 at 21:00; Stop at 21:00; Status DC Metoprolol Tartrate (Lopressor) 12.5 mg 1X ONCE PO Last administered on 19:00; Start 01/31/17 at 19:00; Stop 01/31/17 at 19:01; Status DC Metoprolol Tartrate (Lopressor) 25 mg BID PO Last administered on 02/02/17 08: 53; Start 02/01/17 at 09:00; Stop 02/02/17 at 10:16; Status DC Enoxaparin Sodium (Lovenox 30mg Syringe) 30 mg Q24H SQ Last administered on 08:39; Start 02/01/17 at 10:00; Stop 02/06/17 at 14:42; Status DC Metoprolol Tartrate (Lopressor) 50 mg BID PO Last administered on 02/03/17 22: 05; Start 02/02/17 at 21:00; Stop 02/04/17 at 07:58; Status DC Amlodipine Besylate (Norvasc) 5 mg DAILY PO Last administered on 02/03/17 08: 36; Start 02/02/17 at 10:30; Stop 02/04/17 at 07:15; Status DC Acetaminophen (Tylenol) 325 mg PRN Q4HRS PRN PO MILD PAIN / TEMP Last administered on 02/03/17 15:44; Start 02/02/17 at 10:45; Stop 02/06/17 at 03:45 ; Status DC Bisacodyl (Dulcolax Tab) 10 mg PRN DAILY PRN PO CONSTIPATION Last administered on 02/03/17 15:44; Start 02/03/17 at 09:45 Magnesium Hydroxide (Milk Of Magnesia) 2,400 mg PRN DAILY PRN PO CONSTIPATION Last administered on 02/03/17 11:03; Start 02/03/17 at 09:45 Senna/Docusate Sodium (Senna Plus) 1 tab PRN BID PRN PO CONSTIPATION Last administered on 02/03/17 11:03; Start 02/03/17 at 09:45 Ondansetron HCl (Zofran) 4 mg PRN Q6HRS PRN IV NAUSEA/VOMITING Last administered on 02/03/17 11:29; Start 02/03/17 at 11:30 Amlodipine Besylate (Norvasc) 5 mg 1X ONCE PO Last administered on 02/03/17 12:52; Start 02/03/17 at 11:45; Stop 02/03/17 at 11:46; Status DC Lisinopril (Prinivil) 10 mg DAILY PO Last administered on 02/03/17 15:44; Start 02/03/17 at 15:30; Stop 02/04/17 at 07:18; Status DC Amlodipine Besylate (Norvasc) 10 mg DAILY PO ; Start 02/04/17 at 09:00; Stop at 11:19; Status DC Lisinopril (Prinivil) 20 mg DAILY PO ; Start 02/04/17 at 09:00; Stop 02/04/17 at 09:00; Status DC Metoprolol Tartrate (Lopressor) 5 mg Q6HRS IVP Last administered on 02/05/17 11:59; Start 02/04/17 at 08:30; Stop 02/05/17 at 14:27; Status DC Enalaprilat 2.5 mg 2.5 mg Q6HRS IV Last administered on 02/05/17 06:05; Start 02/04/17 at 08:30; Stop 02/05/17 at 09:36; Status DC Sodium Chloride (Iv Sodium Chloride 0.9% 1000ml Bag) 1,000 ml @ 75 mls/hr [id number] IV Last administered on 02/05/17 06:07; Start 02/04/17 at 18:00; Stop 02/05/17 at 14:27; Status DC Enalaprilat (Vasotec) 5 mg Q6HRS IV Last administered on 02/06/17 05:56; Start 02/05/17 at 12:00; Stop 02/06/17 at 09:35; Status DC Aspirin 300 mg 300 mg DAILY CA Last administered on 02/07/17 07:35; Start at 09:00 Amino Acids/ Electrolytes (Clinimix E 2.75%-5% Solution) 2,000 ml @ 80 mls/hr Q24H IV Last administered on 02/07/17 10:36; Start 02/05/17 at 15:00 Docusate Sodium (Enemeez) 283 mg PRN DAILY PRN CA CONSTIPATION; Start 02/05/17 at 14:30 Sodium Biphosphate/ Sodium Phosphate (Fleet Adult) 133 ml PRN DAILY PRN CA CONSTIPATION Last administered on 02/05/17 18:12; Start 02/05/17 at 14:30 Acetaminophen (Tylenol) 650 mg PRN Q6HRS PRN CA MILD PAIN / TEMP Last administered on 02/06/17 10:41; Start 02/06/17 at 03:45 Metoprolol Tartrate (Lopressor) 5 mg Q6HRS IVP Last administered on 02/06/17 10:38; Start 02/06/17 at 10:00; Stop 02/06/17 at 11:19; Status DC Enalaprilat (Vasotec) 10 mg Q6HRS IV ; Start 02/06/17 at 12:00; Stop 02/06/17 at 12:00; Status DC Metoprolol Tartrate (Lopressor) 10 mg Q6HRS IVP ; Start 02/06/17 at 12:00; Status Cancel Amlodipine Besylate (Norvasc) 10 mg DAILY NG ; Start 02/07/17 at 09:00; Stop at 09:00; Status DC Lisinopril (Prinivil) 40 mg DAILY NG Last administered on 02/06/17 14:26; Start 02/06/17 at 12:00; Stop 02/06/17 at 15:25; Status DC Polyethylene Glycol (miraLAX PACKET) 17 gm DAILY PEG Last administered on 14:24; Start 02/06/17 at 15:00 Labetalol HCl (Normodyne) 20 mg PRN Q2HR PRN IVP HYPERTENSION, SEE COMMENTS Last administered on 02/07/17 01:34; Start 02/06/17 at 13:00 Hydralazine HCl (Apresoline) 50 mg TID NG Last administered on 02/06/17 14:41 ; Start 02/06/17 at 14:00; Stop 02/06/17 at 15:25; Status DC Atorvastatin Calcium (Lipitor) 40 mg QHS NG Last administered on 02/06/17 21: 21; Start 02/06/17 at 21:00 Enoxaparin Sodium (Lovenox 30mg Syringe) 30 mg Q12HR SQ Last administered on 07:35; Start 02/06/17 at 21:00 Iohexol (Omnipaque 350 Mg/ml) 60 ml 1X ONCE IV Last administered on 02/06/17 15:18; Start 02/06/17 at 15:00; Stop 02/06/17 at 15:01; Status DC Info (Do NOT chart on this entry -- for MONITORING) 1 each PRN DAILY PRN MC SEE COMMENTS; Start 02/06/17 at 15:00; Stop 02/08/17 at 14:59 Active Scripts Active Reported Aspirin 325 Mg Tablet 1 Tab PO DAILY Metoprolol Tartrate 50 Mg Tablet 1 Tab PO DAILY Amlodipine Besylate 10 Mg Tablet 10 Mg PO DAILY Vitals/I & O Vital Sign - Last 24 Hours 02/06/17 02/06/17 02/06/17 02/06/17 11:00 14:26 14:41 15:00 Temp 100.6 99.8 100.6 99.8 Pulse 60 79 79 79 Resp 20 20 B/P 195/86 165/72 165/72 165/72 Pulse Ox 96 96 O2 Delivery Room Air Room Air 02/06/17 02/06/17 02/07/17 02/07/17 19:51 20:00 01:03 01:34 Temp 99.5 100.6 99.5 100.6 Pulse 89 93 93 Resp 20 20 B/P 150/72 209/91 209/91 Pulse Ox 96 96 O2 Delivery Room Air Room Air Room Air 02/07/17 02/07/17 02/07/17 02/07/17 03:12 07:00 08:00 08:00 Temp 97.9 97.9 97.9 97.9 Pulse 81 85 85 Resp 18 B/P 144/114 203/71 203/71 Pulse Ox 94 97 O2 Delivery Room Air Room Air Room Air Intake and Output 02/06/17 02/06/17 02/07/17 15:00 23:00 07:00 Intake Total 0 ml Balance 0 ml DANI NAYLOR MD Feb 07, 2017 10:53
--- NOTE | 2017-02-07 11:58 | PDOC ---
Objective: Objective: Per RN - pulled NG out 3 times (not replaced). No further stools. Reviewed PC note - another meeting tomorrow a.m. Vital Signs: Vital Signs Date Time Temp Pulse Resp B/P Pulse Ox O2 Delivery O2 Flow Rate FiO2 02/07/17 11:00 99.8 96 18 111/77 94 Room Air 99.8 Labs: Laboratory Tests Test 02/06/17 14:20 02/07/17 03:46 Urine Color Yellow Urine Clarity Clear Urine pH 7.5 Urine Specific [place] 1.015 Urine Protein >=300mg/dL Urine Glucose (UA) Negativemg/dL Urine Ketones (Stick) Tracemg/dL Urine Blood Negative Urine Nitrite Negative Urine Bilirubin Negative Urine Urobilinogen Dipstick 0.2mg/dL Urine Leukocyte Esterase Negative Urine RBC 0/HPF Urine WBC Occ/HPF Urine Squamous Epithelial Cells Occ/LPF Urine Amorphous Sediment Present/HPF Urine Bacteria 0/HPF Urine Mucus Mod/LPF White Blood Count 12.1x10^3/uL Red Blood Count 3.80x10^6/uL Hemoglobin 10.5g/dL Hematocrit 31.0% Mean Corpuscular Volume 82fL Mean Corpuscular Hemoglobin 28pg Mean Corpuscular Hemoglobin Concent 34g/dL Red Cell Distribution Width 14.2% Platelet Count 263x10^3/uL Neutrophils (%) (Auto) 77% Lymphocytes (%) (Auto) 13% Monocytes (%) (Auto) 8% Eosinophils (%) (Auto) 1% Basophils (%) (Auto) 1% Neutrophils # (Auto) 9.4x10^3uL Lymphocytes # (Auto) 1.6x10^3/uL Monocytes # (Auto) 0.9x10^3/uL Eosinophils # (Auto) 0.2x10^3/uL Basophils # (Auto) 0.1x10^3/uL Sodium Level 141mmol/L Potassium Level 3.7mmol/L Chloride Level 106mmol/L Carbon Dioxide Level 24mmol/L Anion Gap 11 Blood Urea Nitrogen 21mg/dL Creatinine 1.0mg/dL Estimated GFR (Cockcroft-Gault) 53.9 Glucose Level 147mg/dL Calcium Level 8.7mg/dL Imaging: Brain MRI 02/06/17 IMPRESSION Interval increase in size of the areas of acute infarction involving the medial right frontal parietal lobe and the left temporal lobe. There has been interval increase in the surrounding edema and associated mass effect. No midline shift is seen. Additional new smaller areas of acute ischemia/infarction are seen involving the right frontoparietal and right parietal lobes as outlined above. KUB 02/07/17 Impression: NG tube tip in the proximal stomach with the side port at the EG junction. The tube should be advanced further. Nonspecific gas pattern in the abdomen. PE: GEN: NAD LUNGS: clear anteriorly HEART: S1S2 ABD: NABS, S/ND/NT NEURO/PSYCH: awake, wearing mitts, doesn't speak A/P: Constipation -unclear timing of last BM, passed some brown liquid 02/06 -x-rays unremarkable for obstruction, etc. 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 No new GI recs. MIGUELINA YBARRA Feb 07, 2017 11:58
--- NOTE | 2017-02-07 12:24 | PDOC ---
PROGRESS NOTES Assessment Problems Medical Problems: (1) CVA (cerebral vascular accident) Status: Acute Multiple subacute strokes, leading to [id number] state. Cardiac emboli suspected, but echocardiogram, transesophageal and transthoracic, negative for source and CTA shows no significant arterial stenosis. There is no evidence of vasculitis She has worsened over the past 2 days, now is unable to swallow Plan Have increased her Lovenox dose Rehabilitation modalities assisted unit care. Aspirin Prognosis is poor, I left a message with patient's son. She is now a DNR Subjective None Objective Vital Signs Date Time Temp Pulse Resp B/P Pulse Ox O2 Delivery O2 Flow Rate FiO2 02/07/17 11:00 99.8 96 18 111/77 94 Room Air 99.8 Intake and Output 02/07/17 07:00 Intake Total 0 ml Balance 0 ml Intake Oral 0 ml # Voids 7 PHYSICAL EXAM Eyes closed. nonverbal PERRL. EOMI. CN: no focal findings. Muscle tone: normal. Muscle strength: 4/5 DTR: 1+ Plantar reflex: flexor Gait: not examined in bed. Sensory exam: no abnormal findings. No cerebellar signs elicited. Review of Relevant I have reviewed the following items jayashree (where applicable) has been applied. Labs Laboratory Tests Test 02/06/17 03:50 02/06/17 14:20 02/07/17 03:46 White Blood Count 11.2x10^3/uL (4.0-11.0) 12.1x10^3/uL (4.0-11.0) Red Blood Count 3.67x10^6/uL (3.50-5.40) 3.80x10^6/uL (3.50-5.40) Hemoglobin 10.0g/dL (12.0-15.5) 10.5g/dL (12.0-15.5) Hematocrit 30.4% (36.0-47.0) 31.0% (36.0-47.0) Mean Corpuscular Volume 83fL (79-100) 82fL (79-100) Mean Corpuscular Hemoglobin 27pg (25-35) 28pg (25-35) Mean Corpuscular Hemoglobin Concent 33g/dL (31-37) 34g/dL (31-37) Red Cell Distribution Width 14.3% (11.5-14.5) 14.2% (11.5-14.5) Platelet Count 227x10^3/uL (140-400) 263x10^3/uL (140-400) Neutrophils (%) (Auto) 81% (31-73) 77% (31-73) Lymphocytes (%) (Auto) 11% (24-48) 13% (24-48) Monocytes (%) (Auto) 7% (0-9) 8% (0-9) Eosinophils (%) (Auto) 0% (0-3) 1% (0-3) Basophils (%) (Auto) 1% (0-3) 1% (0-3) Neutrophils # (Auto) 9.0x10^3uL (1.8-7.7) 9.4x10^3uL (1.8-7.7) Lymphocytes # (Auto) 1.2x10^3/uL (1.0-4.8) 1.6x10^3/uL (1.0-4.8) Monocytes # (Auto) 0.8x10^3/uL (0.0-1.1) 0.9x10^3/uL (0.0-1.1) Eosinophils # (Auto) 0.0x10^3/uL (0.0-0.7) 0.2x10^3/uL (0.0-0.7) Basophils # (Auto) 0.2x10^3/uL (0.0-0.2) 0.1x10^3/uL (0.0-0.2) Sodium Level 144mmol/L (136-145) 141mmol/L (136-145) Potassium Level 3.5mmol/L (3.5-5.1) 3.7mmol/L (3.5-5.1) Chloride Level 109mmol/L (98-107) 106mmol/L (98-107) Carbon Dioxide Level 23mmol/L (21-32) 24mmol/L (21-32) Anion Gap 12 (6-14) 11 (6-14) Blood Urea Nitrogen 22mg/dL (7-20) 21mg/dL (7-20) Creatinine 1.1mg/dL (0.6-1.0) 1.0mg/dL (0.6-1.0) Estimated GFR (Cockcroft-Gault) 48.3 53.9 Glucose Level 136mg/dL (70-99) 147mg/dL (70-99) Calcium Level 8.5mg/dL (8.5-10.1) 8.7mg/dL (8.5-10.1) Urine Color Yellow Urine Clarity Clear Urine pH 7.5 Urine Specific [place] 1.015 Urine Protein >=300mg/dL (NEG-TRACE) Urine Glucose (UA) Negativemg/dL (NEG) Urine Ketones (Stick) Tracemg/dL (NEG) Urine Blood Negative (NEG) Urine Nitrite Negative (NEG) Urine Bilirubin Negative (NEG) Urine Urobilinogen Dipstick 0.2mg/dL (0.2 mg/dL) Urine Leukocyte Esterase Negative (NEG) Urine RBC 0/HPF (0-2) Urine WBC Occ/HPF (0-4) Urine Squamous Epithelial Cells Occ/LPF Urine Amorphous Sediment Present/HPF Urine Bacteria 0/HPF (0-FEW) Urine Mucus Mod/LPF Laboratory Tests Test 02/06/17 14:20 02/07/17 03:46 Urine Color Yellow Urine Clarity Clear Urine pH 7.5 Urine Specific [place] 1.015 Urine Protein >=300mg/dL (NEG-TRACE) Urine Glucose (UA) Negativemg/dL (NEG) Urine Ketones (Stick) Tracemg/dL (NEG) Urine Blood Negative (NEG) Urine Nitrite Negative (NEG) Urine Bilirubin Negative (NEG) Urine Urobilinogen Dipstick 0.2mg/dL (0.2 mg/dL) Urine Leukocyte Esterase Negative (NEG) Urine RBC 0/HPF (0-2) Urine WBC Occ/HPF (0-4) Urine Squamous Epithelial Cells Occ/LPF Urine Amorphous Sediment Present/HPF Urine Bacteria 0/HPF (0-FEW) Urine Mucus Mod/LPF White Blood Count 12.1x10^3/uL (4.0-11.0) Red Blood Count 3.80x10^6/uL (3.50-5.40) Hemoglobin 10.5g/dL (12.0-15.5) Hematocrit 31.0% (36.0-47.0) Mean Corpuscular Volume 82fL (79-100) Mean Corpuscular Hemoglobin 28pg (25-35) Mean Corpuscular Hemoglobin Concent 34g/dL (31-37) Red Cell Distribution Width 14.2% (11.5-14.5) Platelet Count 263x10^3/uL (140-400) Neutrophils (%) (Auto) 77% (31-73) Lymphocytes (%) (Auto) 13% (24-48) Monocytes (%) (Auto) 8% (0-9) Eosinophils (%) (Auto) 1% (0-3) Basophils (%) (Auto) 1% (0-3) Neutrophils # (Auto) 9.4x10^3uL (1.8-7.7) Lymphocytes # (Auto) 1.6x10^3/uL (1.0-4.8) Monocytes # (Auto) 0.9x10^3/uL (0.0-1.1) Eosinophils # (Auto) 0.2x10^3/uL (0.0-0.7) Basophils # (Auto) 0.1x10^3/uL (0.0-0.2) Sodium Level 141mmol/L (136-145) Potassium Level 3.7mmol/L (3.5-5.1) Chloride Level 106mmol/L (98-107) Carbon Dioxide Level 24mmol/L (21-32) Anion Gap 11 (6-14) Blood Urea Nitrogen 21mg/dL (7-20) Creatinine 1.0mg/dL (0.6-1.0) Estimated GFR (Cockcroft-Gault) 53.9 Glucose Level 147mg/dL (70-99) Calcium Level 8.7mg/dL (8.5-10.1) Medications Current Medications Aspirin 325 mg 325 mg [id number] PO Last administered on 02/03/17 08:35; Start 01/30/17 at 08:00; Stop 02/05/17 at 10:56; Status DC Sodium Chloride (Iv Sodium Chloride 0.9% 1000ml Bag) 1,000 ml @ 75 mls/hr [id number] IV Last administered on 02/03/17 11:11; Start 01/30/17 at 15:00; Stop 02/03/17 at 15:16; Status DC Sodium Chloride (Normal Saline Flush) 10 ml QSHIFT PRN IV AFTER MEDS AND BLOOD DRAWS; Start 01/30/17 at 15:15 Lidocaine HCl (Xylocaine 2% Topical 5gm Tube) 1 braydon 1X ONCE TP Last administered on 01/30/17 13:56; Start 01/30/17 at 15:15; Stop 01/30/17 at 15:16 ; Status DC Lidocaine HCl (Viscous Lidocaine) 15 ml 1X ONCE MM Last administered on 13:56; Start 01/30/17 at 15:15; Stop 01/30/17 at 15:16; Status DC Benzocaine (Hurricaine One) 1 spray 1X ONCE MM Last administered on 01/30/17 13:56; Start 01/30/17 at 15:15; Stop 01/30/17 at 15:16; Status DC Lidocaine HCl (Xylocaine 2% Topical 5gm Tube) 1 braydon 1X ONCE TP ; Start at 06:00; Stop 01/31/17 at 06:01; Status DC Lidocaine HCl (Viscous Lidocaine) 15 ml 1X ONCE MM ; Start 01/31/17 at 06:00; Stop 01/31/17 at 06:01; Status DC Benzocaine (Hurricaine One) 1 spray 1X ONCE MM Last administered on 01/31/17 13:56; Start 01/31/17 at 06:00; Stop 01/31/17 at 06:01; Status DC Lidocaine HCl (Viscous Lidocaine) 15 ml STK-MED ONCE .ROUTE ; Start 01/31/17 at 13:32; Stop 01/31/17 at 13:33; Status DC Benzocaine (Hurricaine One) 1 spray STK-MED ONCE .ROUTE ; Start 01/31/17 at 13: 32; Stop 01/31/17 at 13:33; Status DC Lidocaine HCl 30 braydon 30 braydon STK-MED ONCE TP ; Start 01/31/17 at 13:33; Stop at 13:34; Status DC Lactated Ringer's (Iv Lactated Ringers) 1,000 ml @ 75 mls/hr [id number] IV Last administered on 01/31/17 14:00; Start 01/31/17 at 14:45; Stop 02/01/17 at 23:46 ; Status DC Hydralazine HCl (Apresoline) 10 mg PRN Q4HRS PRN IVP ELEVATED BP, SEE COMMENTS Last administered on 02/07/17 08:00; Start 01/31/17 at 15:30 Metoprolol Tartrate (Lopressor) 12.5 mg BID PO Last administered on 01/31/17 17:24; Start 01/31/17 at 17:30; Stop 01/31/17 at 18:29; Status DC Metoprolol Tartrate (Lopressor) 25 mg BID PO ; Start 01/31/17 at 21:00; Stop at 21:00; Status DC Metoprolol Tartrate (Lopressor) 12.5 mg 1X ONCE PO Last administered on 19:00; Start 01/31/17 at 19:00; Stop 01/31/17 at 19:01; Status DC Metoprolol Tartrate (Lopressor) 25 mg BID PO Last administered on 02/02/17 08: 53; Start 02/01/17 at 09:00; Stop 02/02/17 at 10:16; Status DC Enoxaparin Sodium (Lovenox 30mg Syringe) 30 mg Q24H SQ Last administered on 08:39; Start 02/01/17 at 10:00; Stop 02/06/17 at 14:42; Status DC Metoprolol Tartrate (Lopressor) 50 mg BID PO Last administered on 02/03/17 22: 05; Start 02/02/17 at 21:00; Stop 02/04/17 at 07:58; Status DC Amlodipine Besylate (Norvasc) 5 mg DAILY PO Last administered on 02/03/17 08: 36; Start 02/02/17 at 10:30; Stop 02/04/17 at 07:15; Status DC Acetaminophen (Tylenol) 325 mg PRN Q4HRS PRN PO MILD PAIN / TEMP Last administered on 02/03/17 15:44; Start 02/02/17 at 10:45; Stop 02/06/17 at 03:45 ; Status DC Bisacodyl (Dulcolax Tab) 10 mg PRN DAILY PRN PO CONSTIPATION Last administered on 02/03/17 15:44; Start 02/03/17 at 09:45 Magnesium Hydroxide (Milk Of Magnesia) 2,400 mg PRN DAILY PRN PO CONSTIPATION Last administered on 02/03/17 11:03; Start 02/03/17 at 09:45 Senna/Docusate Sodium (Senna Plus) 1 tab PRN BID PRN PO CONSTIPATION Last administered on 02/03/17 11:03; Start 02/03/17 at 09:45 Ondansetron HCl (Zofran) 4 mg PRN Q6HRS PRN IV NAUSEA/VOMITING Last administered on 02/03/17 11:29; Start 02/03/17 at 11:30 Amlodipine Besylate (Norvasc) 5 mg 1X ONCE PO Last administered on 02/03/17 12:52; Start 02/03/17 at 11:45; Stop 02/03/17 at 11:46; Status DC Lisinopril (Prinivil) 10 mg DAILY PO Last administered on 02/03/17 15:44; Start 02/03/17 at 15:30; Stop 02/04/17 at 07:18; Status DC Amlodipine Besylate (Norvasc) 10 mg DAILY PO ; Start 02/04/17 at 09:00; Stop at 11:19; Status DC Lisinopril (Prinivil) 20 mg DAILY PO ; Start 02/04/17 at 09:00; Stop 02/04/17 at 09:00; Status DC Metoprolol Tartrate (Lopressor) 5 mg Q6HRS IVP Last administered on 02/05/17 11:59; Start 02/04/17 at 08:30; Stop 02/05/17 at 14:27; Status DC Enalaprilat 2.5 mg 2.5 mg Q6HRS IV Last administered on 02/05/17 06:05; Start 02/04/17 at 08:30; Stop 02/05/17 at 09:36; Status DC Sodium Chloride (Iv Sodium Chloride 0.9% 1000ml Bag) 1,000 ml @ 75 mls/hr [id number] IV Last administered on 02/05/17 06:07; Start 02/04/17 at 18:00; Stop 02/05/17 at 14:27; Status DC Enalaprilat (Vasotec) 5 mg Q6HRS IV Last administered on 02/06/17 05:56; Start 02/05/17 at 12:00; Stop 02/06/17 at 09:35; Status DC Aspirin 300 mg 300 mg DAILY IN Last administered on 02/07/17 07:35; Start at 09:00 Amino Acids/ Electrolytes (Clinimix E 2.75%-5% Solution) 2,000 ml @ 80 mls/hr Q24H IV Last administered on 02/07/17 10:36; Start 02/05/17 at 15:00 Docusate Sodium (Enemeez) 283 mg PRN DAILY PRN IN CONSTIPATION; Start 02/05/17 at 14:30 Sodium Biphosphate/ Sodium Phosphate (Fleet Adult) 133 ml PRN DAILY PRN IN CONSTIPATION Last administered on 02/05/17 18:12; Start 02/05/17 at 14:30 Acetaminophen (Tylenol) 650 mg PRN Q6HRS PRN IN MILD PAIN / TEMP Last administered on 02/06/17 10:41; Start 02/06/17 at 03:45 Metoprolol Tartrate (Lopressor) 5 mg Q6HRS IVP Last administered on 02/06/17 10:38; Start 02/06/17 at 10:00; Stop 02/06/17 at 11:19; Status DC Enalaprilat (Vasotec) 10 mg Q6HRS IV ; Start 02/06/17 at 12:00; Stop 02/06/17 at 12:00; Status DC Metoprolol Tartrate (Lopressor) 10 mg Q6HRS IVP ; Start 02/06/17 at 12:00; Status Cancel Amlodipine Besylate (Norvasc) 10 mg DAILY NG ; Start 02/07/17 at 09:00; Stop at 09:00; Status DC Lisinopril (Prinivil) 40 mg DAILY NG Last administered on 02/06/17 14:26; Start 02/06/17 at 12:00; Stop 02/06/17 at 15:25; Status DC Polyethylene Glycol (miraLAX PACKET) 17 gm DAILY PEG Last administered on 14:24; Start 02/06/17 at 15:00 Labetalol HCl (Normodyne) 20 mg PRN Q2HR PRN IVP HYPERTENSION, SEE COMMENTS Last administered on 02/07/17 01:34; Start 02/06/17 at 13:00 Hydralazine HCl (Apresoline) 50 mg TID NG Last administered on 02/06/17 14:41 ; Start 02/06/17 at 14:00; Stop 02/06/17 at 15:25; Status DC Atorvastatin Calcium (Lipitor) 40 mg QHS NG Last administered on 02/06/17 21: 21; Start 02/06/17 at 21:00 Enoxaparin Sodium (Lovenox 30mg Syringe) 30 mg Q12HR SQ Last administered on 07:35; Start 02/06/17 at 21:00 Iohexol (Omnipaque 350 Mg/ml) 60 ml 1X ONCE IV Last administered on 02/06/17 15:18; Start 02/06/17 at 15:00; Stop 02/06/17 at 15:01; Status DC Info (Do NOT chart on this entry -- for MONITORING) 1 each PRN DAILY PRN MC SEE COMMENTS; Start 02/06/17 at 15:00; Stop 02/08/17 at 14:59 Active Scripts Active Reported Aspirin 325 Mg Tablet 1 Tab PO DAILY Metoprolol Tartrate 50 Mg Tablet 1 Tab PO DAILY Amlodipine Besylate 10 Mg Tablet 10 Mg PO DAILY Vitals/I & O Vital Sign - Last 24 Hours 02/06/17 02/06/17 02/06/17 02/06/17 14:26 14:41 15:00 19:51 Temp 99.8 99.5 99.8 99.5 Pulse 79 79 79 89 Resp 20 B/P 165/72 165/72 165/72 150/72 Pulse Ox 96 96 O2 Delivery Room Air Room Air 02/06/17 02/07/17 02/07/17 02/07/17 20:00 01:03 01:34 03:12 Temp 100.6 97.9 100.6 97.9 Pulse 93 93 81 Resp 20 16 B/P 209/91 209/91 144/114 Pulse Ox 96 94 O2 Delivery Room Air Room Air Room Air 02/07/17 02/07/17 02/07/17 02/07/17 07:00 08:00 08:00 11:00 Temp 97.9 99.8 97.9 99.8 Pulse 85 85 96 Resp 18 18 B/P 203/71 203/71 111/77 Pulse Ox 97 94 O2 Delivery Room Air Room Air Room Air Intake and Output 02/06/17 02/06/17 02/07/17 15:00 23:00 07:00 Intake Total 0 ml Balance 0 ml Images MRI brain yesterday: Interval increase in size of the areas of acute infarction involving the medial right frontal parietal lobe and the left temporal lobe. There has been interval increase in the surrounding edema and associated mass effect. No midline shift is seen. Additional new smaller areas of acute ischemia/infarction are seen involving the right frontoparietal and right parietal lobes as outlined above. CTA yesterday: Known evolving bilateral hemispheric infarcts are noted. No evidence of high-grade arterial stenosis involving either carotid bifurcation. Mild stenosis, estimated at approximately 50%, noted involving the distal right internal carotid artery. The right vertebral is dominant. The left vertebral was not definitely seen intracranially. 4 mm aneurysm left M1 segment YFN MADDOX MD Feb 07, 2017 12:24
--- NOTE | 2017-02-07 12:28 | PDOC ---
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 Physical Debility due to above Vascular Dementia worsening. Constipation HLD FEVER with possible asp PNA sepsis with possible asp pna acute mental status change with bl stroke Plan fu with gi, neuro pt failed swallow study, npo now add procalamine, cont Ptot if pt can do it change asa to SUPP, may change to NGT , add lipitor per NGT GET kub FOR constipation, if ok, cont enema prn PAT consult for code status add NGT for feeding however, pt pulled out 3 times since 02/06. hold for now dnr brain MRI repeat 02/06 as per neuro, with worsening bl stroke CHECK ua, ucx, bcx, CXR for fever as per neuro, will keep BP till 190/110 will iv HTN meds prn WILL cont PAT DISCUSSION with family, either PEG which or TPN, however, pt has poor prognosis , will not change with any procedure add zosyn for possible asp PNA History of Present Illness History of Present Illness not talking and failed swallow since 02/04. able to walk last sunday BP still high constipation slightl better with enama fever dyphagia Vitals Vitals Vital Signs Date Time Temp Pulse Resp B/P Pulse Ox O2 Delivery O2 Flow Rate FiO2 02/07/17 11:00 99.8 96 18 111/77 94 Room Air 99.8 Physical Exam General: Alert, Other (alert, working with PT) Heart: Regular rate, Normal S1, Normal S2 Lungs: Clear Abdomen: Normal bowel sounds, Soft Extremities: No clubbing, No edema Labs LABS Laboratory Tests Test 02/06/17 14:20 02/07/17 03:46 Urine Color Yellow Urine Clarity Clear Urine pH 7.5 Urine Specific [place] 1.015 Urine Protein >=300mg/dL (NEG-TRACE) Urine Glucose (UA) Negativemg/dL (NEG) Urine Ketones (Stick) Tracemg/dL (NEG) Urine Blood Negative (NEG) Urine Nitrite Negative (NEG) Urine Bilirubin Negative (NEG) Urine Urobilinogen Dipstick 0.2mg/dL (0.2 mg/dL) Urine Leukocyte Esterase Negative (NEG) Urine RBC 0/HPF (0-2) Urine WBC Occ/HPF (0-4) Urine Squamous Epithelial Cells Occ/LPF Urine Amorphous Sediment Present/HPF Urine Bacteria 0/HPF (0-FEW) Urine Mucus Mod/LPF White Blood Count 12.1x10^3/uL (4.0-11.0) Red Blood Count 3.80x10^6/uL (3.50-5.40) Hemoglobin 10.5g/dL (12.0-15.5) Hematocrit 31.0% (36.0-47.0) Mean Corpuscular Volume 82fL (79-100) Mean Corpuscular Hemoglobin 28pg (25-35) Mean Corpuscular Hemoglobin Concent 34g/dL (31-37) Red Cell Distribution Width 14.2% (11.5-14.5) Platelet Count 263x10^3/uL (140-400) Neutrophils (%) (Auto) 77% (31-73) Lymphocytes (%) (Auto) 13% (24-48) Monocytes (%) (Auto) 8% (0-9) Eosinophils (%) (Auto) 1% (0-3) Basophils (%) (Auto) 1% (0-3) Neutrophils # (Auto) 9.4x10^3uL (1.8-7.7) Lymphocytes # (Auto) 1.6x10^3/uL (1.0-4.8) Monocytes # (Auto) 0.9x10^3/uL (0.0-1.1) Eosinophils # (Auto) 0.2x10^3/uL (0.0-0.7) Basophils # (Auto) 0.1x10^3/uL (0.0-0.2) Sodium Level 141mmol/L (136-145) Potassium Level 3.7mmol/L (3.5-5.1) Chloride Level 106mmol/L (98-107) Carbon Dioxide Level 24mmol/L (21-32) Anion Gap 11 (6-14) Blood Urea Nitrogen 21mg/dL (7-20) Creatinine 1.0mg/dL (0.6-1.0) Estimated GFR (Cockcroft-Gault) 53.9 Glucose Level 147mg/dL (70-99) Calcium Level 8.7mg/dL (8.5-10.1) Review of Systems Review of Systems no fever, chills, sob or chest pain Assessment and Plan Assessmemt and Plan Problems Medical Problems: (1) CVA (cerebral vascular accident) Status: Acute Problems: Comment Review of Relevant I have reviewed the following items jayashree (where applicable) has been applied. Labs Laboratory Tests Test 02/06/17 03:50 02/06/17 14:20 02/07/17 03:46 White Blood Count 11.2x10^3/uL (4.0-11.0) 12.1x10^3/uL (4.0-11.0) Red Blood Count 3.67x10^6/uL (3.50-5.40) 3.80x10^6/uL (3.50-5.40) Hemoglobin 10.0g/dL (12.0-15.5) 10.5g/dL (12.0-15.5) Hematocrit 30.4% (36.0-47.0) 31.0% (36.0-47.0) Mean Corpuscular Volume 83fL (79-100) 82fL (79-100) Mean Corpuscular Hemoglobin 27pg (25-35) 28pg (25-35) Mean Corpuscular Hemoglobin Concent 33g/dL (31-37) 34g/dL (31-37) Red Cell Distribution Width 14.3% (11.5-14.5) 14.2% (11.5-14.5) Platelet Count 227x10^3/uL (140-400) 263x10^3/uL (140-400) Neutrophils (%) (Auto) 81% (31-73) 77% (31-73) Lymphocytes (%) (Auto) 11% (24-48) 13% (24-48) Monocytes (%) (Auto) 7% (0-9) 8% (0-9) Eosinophils (%) (Auto) 0% (0-3) 1% (0-3) Basophils (%) (Auto) 1% (0-3) 1% (0-3) Neutrophils # (Auto) 9.0x10^3uL (1.8-7.7) 9.4x10^3uL (1.8-7.7) Lymphocytes # (Auto) 1.2x10^3/uL (1.0-4.8) 1.6x10^3/uL (1.0-4.8) Monocytes # (Auto) 0.8x10^3/uL (0.0-1.1) 0.9x10^3/uL (0.0-1.1) Eosinophils # (Auto) 0.0x10^3/uL (0.0-0.7) 0.2x10^3/uL (0.0-0.7) Basophils # (Auto) 0.2x10^3/uL (0.0-0.2) 0.1x10^3/uL (0.0-0.2) Sodium Level 144mmol/L (136-145) 141mmol/L (136-145) Potassium Level 3.5mmol/L (3.5-5.1) 3.7mmol/L (3.5-5.1) Chloride Level 109mmol/L (98-107) 106mmol/L (98-107) Carbon Dioxide Level 23mmol/L (21-32) 24mmol/L (21-32) Anion Gap 12 (6-14) 11 (6-14) Blood Urea Nitrogen 22mg/dL (7-20) 21mg/dL (7-20) Creatinine 1.1mg/dL (0.6-1.0) 1.0mg/dL (0.6-1.0) Estimated GFR (Cockcroft-Gault) 48.3 53.9 Glucose Level 136mg/dL (70-99) 147mg/dL (70-99) Calcium Level 8.5mg/dL (8.5-10.1) 8.7mg/dL (8.5-10.1) Urine Color Yellow Urine Clarity Clear Urine pH 7.5 Urine Specific [place] 1.015 Urine Protein >=300mg/dL (NEG-TRACE) Urine Glucose (UA) Negativemg/dL (NEG) Urine Ketones (Stick) Tracemg/dL (NEG) Urine Blood Negative (NEG) Urine Nitrite Negative (NEG) Urine Bilirubin Negative (NEG) Urine Urobilinogen Dipstick 0.2mg/dL (0.2 mg/dL) Urine Leukocyte Esterase Negative (NEG) Urine RBC 0/HPF (0-2) Urine WBC Occ/HPF (0-4) Urine Squamous Epithelial Cells Occ/LPF Urine Amorphous Sediment Present/HPF Urine Bacteria 0/HPF (0-FEW) Urine Mucus Mod/LPF Laboratory Tests Test 02/06/17 14:20 02/07/17 03:46 Urine Color Yellow Urine Clarity Clear Urine pH 7.5 Urine Specific [place] 1.015 Urine Protein >=300mg/dL (NEG-TRACE) Urine Glucose (UA) Negativemg/dL (NEG) Urine Ketones (Stick) Tracemg/dL (NEG) Urine Blood Negative (NEG) Urine Nitrite Negative (NEG) Urine Bilirubin Negative (NEG) Urine Urobilinogen Dipstick 0.2mg/dL (0.2 mg/dL) Urine Leukocyte Esterase Negative (NEG) Urine RBC 0/HPF (0-2) Urine WBC Occ/HPF (0-4) Urine Squamous Epithelial Cells Occ/LPF Urine Amorphous Sediment Present/HPF Urine Bacteria 0/HPF (0-FEW) Urine Mucus Mod/LPF White Blood Count 12.1x10^3/uL (4.0-11.0) Red Blood Count 3.80x10^6/uL (3.50-5.40) Hemoglobin 10.5g/dL (12.0-15.5) Hematocrit 31.0% (36.0-47.0) Mean Corpuscular Volume 82fL (79-100) Mean Corpuscular Hemoglobin 28pg (25-35) Mean Corpuscular Hemoglobin Concent 34g/dL (31-37) Red Cell Distribution Width 14.2% (11.5-14.5) Platelet Count 263x10^3/uL (140-400) Neutrophils (%) (Auto) 77% (31-73) Lymphocytes (%) (Auto) 13% (24-48) Monocytes (%) (Auto) 8% (0-9) Eosinophils (%) (Auto) 1% (0-3) Basophils (%) (Auto) 1% (0-3) Neutrophils # (Auto) 9.4x10^3uL (1.8-7.7) Lymphocytes # (Auto) 1.6x10^3/uL (1.0-4.8) Monocytes # (Auto) 0.9x10^3/uL (0.0-1.1) Eosinophils # (Auto) 0.2x10^3/uL (0.0-0.7) Basophils # (Auto) 0.1x10^3/uL (0.0-0.2) Sodium Level 141mmol/L (136-145) Potassium Level 3.7mmol/L (3.5-5.1) Chloride Level 106mmol/L (98-107) Carbon Dioxide Level 24mmol/L (21-32) Anion Gap 11 (6-14) Blood Urea Nitrogen 21mg/dL (7-20) Creatinine 1.0mg/dL (0.6-1.0) Estimated GFR (Cockcroft-Gault) 53.9 Glucose Level 147mg/dL (70-99) Calcium Level 8.7mg/dL (8.5-10.1) Medications Current Medications Aspirin 325 mg 325 mg [id number] PO Last administered on 02/03/17 08:35; Start 01/30/17 at 08:00; Stop 02/05/17 at 10:56; Status DC Sodium Chloride (Iv Sodium Chloride 0.9% 1000ml Bag) 1,000 ml @ 75 mls/hr [id number] IV Last administered on 02/03/17 11:11; Start 01/30/17 at 15:00; Stop 02/03/17 at 15:16; Status DC Sodium Chloride (Normal Saline Flush) 10 ml QSHIFT PRN IV AFTER MEDS AND BLOOD DRAWS; Start 01/30/17 at 15:15 Lidocaine HCl (Xylocaine 2% Topical 5gm Tube) 1 braydon 1X ONCE TP Last administered on 01/30/17 13:56; Start 01/30/17 at 15:15; Stop 01/30/17 at 15:16 ; Status DC Lidocaine HCl (Viscous Lidocaine) 15 ml 1X ONCE MM Last administered on 13:56; Start 01/30/17 at 15:15; Stop 01/30/17 at 15:16; Status DC Benzocaine (Hurricaine One) 1 spray 1X ONCE MM Last administered on 01/30/17 13:56; Start 01/30/17 at 15:15; Stop 01/30/17 at 15:16; Status DC Lidocaine HCl (Xylocaine 2% Topical 5gm Tube) 1 braydon 1X ONCE TP ; Start at 06:00; Stop 01/31/17 at 06:01; Status DC Lidocaine HCl (Viscous Lidocaine) 15 ml 1X ONCE MM ; Start 01/31/17 at 06:00; Stop 01/31/17 at 06:01; Status DC Benzocaine (Hurricaine One) 1 spray 1X ONCE MM Last administered on 01/31/17 13:56; Start 01/31/17 at 06:00; Stop 01/31/17 at 06:01; Status DC Lidocaine HCl (Viscous Lidocaine) 15 ml STK-MED ONCE .ROUTE ; Start 01/31/17 at 13:32; Stop 01/31/17 at 13:33; Status DC Benzocaine (Hurricaine One) 1 spray STK-MED ONCE .ROUTE ; Start 01/31/17 at 13: 32; Stop 01/31/17 at 13:33; Status DC Lidocaine HCl 30 braydon 30 braydon STK-MED ONCE TP ; Start 01/31/17 at 13:33; Stop at 13:34; Status DC Lactated Ringer's (Iv Lactated Ringers) 1,000 ml @ 75 mls/hr [id number] IV Last administered on 01/31/17 14:00; Start 01/31/17 at 14:45; Stop 02/01/17 at 23:46 ; Status DC Hydralazine HCl (Apresoline) 10 mg PRN Q4HRS PRN IVP ELEVATED BP, SEE COMMENTS Last administered on 02/07/17 08:00; Start 01/31/17 at 15:30 Metoprolol Tartrate (Lopressor) 12.5 mg BID PO Last administered on 01/31/17 17:24; Start 01/31/17 at 17:30; Stop 01/31/17 at 18:29; Status DC Metoprolol Tartrate (Lopressor) 25 mg BID PO ; Start 01/31/17 at 21:00; Stop at 21:00; Status DC Metoprolol Tartrate (Lopressor) 12.5 mg 1X ONCE PO Last administered on 19:00; Start 01/31/17 at 19:00; Stop 01/31/17 at 19:01; Status DC Metoprolol Tartrate (Lopressor) 25 mg BID PO Last administered on 02/02/17 08: 53; Start 02/01/17 at 09:00; Stop 02/02/17 at 10:16; Status DC Enoxaparin Sodium (Lovenox 30mg Syringe) 30 mg Q24H SQ Last administered on 08:39; Start 02/01/17 at 10:00; Stop 02/06/17 at 14:42; Status DC Metoprolol Tartrate (Lopressor) 50 mg BID PO Last administered on 02/03/17 22: 05; Start 02/02/17 at 21:00; Stop 02/04/17 at 07:58; Status DC Amlodipine Besylate (Norvasc) 5 mg DAILY PO Last administered on 02/03/17 08: 36; Start 02/02/17 at 10:30; Stop 02/04/17 at 07:15; Status DC Acetaminophen (Tylenol) 325 mg PRN Q4HRS PRN PO MILD PAIN / TEMP Last administered on 02/03/17 15:44; Start 02/02/17 at 10:45; Stop 02/06/17 at 03:45 ; Status DC Bisacodyl (Dulcolax Tab) 10 mg PRN DAILY PRN PO CONSTIPATION Last administered on 02/03/17 15:44; Start 02/03/17 at 09:45 Magnesium Hydroxide (Milk Of Magnesia) 2,400 mg PRN DAILY PRN PO CONSTIPATION Last administered on 02/03/17 11:03; Start 02/03/17 at 09:45 Senna/Docusate Sodium (Senna Plus) 1 tab PRN BID PRN PO CONSTIPATION Last administered on 02/03/17 11:03; Start 02/03/17 at 09:45 Ondansetron HCl (Zofran) 4 mg PRN Q6HRS PRN IV NAUSEA/VOMITING Last administered on 02/03/17 11:29; Start 02/03/17 at 11:30 Amlodipine Besylate (Norvasc) 5 mg 1X ONCE PO Last administered on 02/03/17 12:52; Start 02/03/17 at 11:45; Stop 02/03/17 at 11:46; Status DC Lisinopril (Prinivil) 10 mg DAILY PO Last administered on 02/03/17 15:44; Start 02/03/17 at 15:30; Stop 02/04/17 at 07:18; Status DC Amlodipine Besylate (Norvasc) 10 mg DAILY PO ; Start 02/04/17 at 09:00; Stop at 11:19; Status DC Lisinopril (Prinivil) 20 mg DAILY PO ; Start 02/04/17 at 09:00; Stop 02/04/17 at 09:00; Status DC Metoprolol Tartrate (Lopressor) 5 mg Q6HRS IVP Last administered on 02/05/17 11:59; Start 02/04/17 at 08:30; Stop 02/05/17 at 14:27; Status DC Enalaprilat 2.5 mg 2.5 mg Q6HRS IV Last administered on 02/05/17 06:05; Start 02/04/17 at 08:30; Stop 02/05/17 at 09:36; Status DC Sodium Chloride (Iv Sodium Chloride 0.9% 1000ml Bag) 1,000 ml @ 75 mls/hr [id number] IV Last administered on 02/05/17 06:07; Start 02/04/17 at 18:00; Stop 02/05/17 at 14:27; Status DC Enalaprilat (Vasotec) 5 mg Q6HRS IV Last administered on 02/06/17 05:56; Start 02/05/17 at 12:00; Stop 02/06/17 at 09:35; Status DC Aspirin 300 mg 300 mg DAILY MA Last administered on 02/07/17 07:35; Start at 09:00 Amino Acids/ Electrolytes (Clinimix E 2.75%-5% Solution) 2,000 ml @ 80 mls/hr Q24H IV Last administered on 02/07/17 10:36; Start 02/05/17 at 15:00 Docusate Sodium (Enemeez) 283 mg PRN DAILY PRN MA CONSTIPATION; Start 02/05/17 at 14:30 Sodium Biphosphate/ Sodium Phosphate (Fleet Adult) 133 ml PRN DAILY PRN MA CONSTIPATION Last administered on 02/05/17 18:12; Start 02/05/17 at 14:30 Acetaminophen (Tylenol) 650 mg PRN Q6HRS PRN MA MILD PAIN / TEMP Last administered on 02/06/17 10:41; Start 02/06/17 at 03:45 Metoprolol Tartrate (Lopressor) 5 mg Q6HRS IVP Last administered on 02/06/17 10:38; Start 02/06/17 at 10:00; Stop 02/06/17 at 11:19; Status DC Enalaprilat (Vasotec) 10 mg Q6HRS IV ; Start 02/06/17 at 12:00; Stop 02/06/17 at 12:00; Status DC Metoprolol Tartrate (Lopressor) 10 mg Q6HRS IVP ; Start 02/06/17 at 12:00; Status Cancel Amlodipine Besylate (Norvasc) 10 mg DAILY NG ; Start 02/07/17 at 09:00; Stop at 09:00; Status DC Lisinopril (Prinivil) 40 mg DAILY NG Last administered on 02/06/17 14:26; Start 02/06/17 at 12:00; Stop 02/06/17 at 15:25; Status DC Polyethylene Glycol (miraLAX PACKET) 17 gm DAILY PEG Last administered on 14:24; Start 02/06/17 at 15:00 Labetalol HCl (Normodyne) 20 mg PRN Q2HR PRN IVP HYPERTENSION, SEE COMMENTS Last administered on 02/07/17 01:34; Start 02/06/17 at 13:00 Hydralazine HCl (Apresoline) 50 mg TID NG Last administered on 02/06/17 14:41 ; Start 02/06/17 at 14:00; Stop 02/06/17 at 15:25; Status DC Atorvastatin Calcium (Lipitor) 40 mg QHS NG Last administered on 02/06/17 21: 21; Start 02/06/17 at 21:00 Enoxaparin Sodium (Lovenox 30mg Syringe) 30 mg Q12HR SQ Last administered on 07:35; Start 02/06/17 at 21:00 Iohexol (Omnipaque 350 Mg/ml) 60 ml 1X ONCE IV Last administered on 02/06/17 15:18; Start 02/06/17 at 15:00; Stop 02/06/17 at 15:01; Status DC Info (Do NOT chart on this entry -- for MONITORING) 1 each PRN DAILY PRN MC SEE COMMENTS; Start 02/06/17 at 15:00; Stop 02/08/17 at 14:59 Active Scripts Active Reported Aspirin 325 Mg Tablet 1 Tab PO DAILY Metoprolol Tartrate 50 Mg Tablet 1 Tab PO DAILY Amlodipine Besylate 10 Mg Tablet 10 Mg PO DAILY Vitals/I & O Vital Sign - Last 24 Hours 02/06/17 02/06/17 02/06/17 02/06/17 14:26 14:41 15:00 19:51 Temp 99.8 99.5 99.8 99.5 Pulse 79 79 79 89 Resp 20 20 B/P 165/72 165/72 165/72 150/72 Pulse Ox 96 96 O2 Delivery Room Air Room Air 02/06/17 02/07/17 02/07/17 02/07/17 20:00 01:03 01:34 03:12 Temp 100.6 97.9 100.6 97.9 Pulse 93 93 81 Resp 20 16 B/P 209/91 209/91 144/114 Pulse Ox 96 94 O2 Delivery Room Air Room Air Room Air 02/07/17 02/07/17 02/07/17 02/07/17 07:00 08:00 08:00 11:00 Temp 97.9 99.8 97.9 99.8 Pulse 85 85 96 Resp 18 18 B/P 203/71 203/71 111/77 Pulse Ox 97 94 O2 Delivery Room Air Room Air Room Air Intake and Output 02/06/17 02/06/17 02/07/17 15:00 23:00 07:00 Intake Total 0 ml Balance 0 ml TEDDY BRIZUELA MD Feb 07, 2017 12:28
[2017-02-07] MEDS ORDERED: PIP/TAZO PER PHARMACY MC PRN (12:30)
[2017-02-07] MEDS: PIPERACILLIN/TAZOBACTAM 3.375 GM in IV NORMAL SALINE 50ML 50 ML IV SCH ×2 (12:49→16:18)
[2017-02-07] MEDS: ACETAMINOPHEN 650 MG SUPP.RECT. PR PRN (12:53)
[2017-02-07] MEDS: ATORVASTATIN CALCIUM 40 MG TABLET. NG SCH (21:00)
[2017-02-08] MEDS: PIPERACILLIN/TAZOBACTAM 3.375 GM in IV NORMAL SALINE 50ML 50 ML IV SCH ×2 (00:22→05:00)
[2017-02-08 02:32] VITALS: BP 191/82
[2017-02-08] MEDS: LABETALOL 20 MG/4 ML DISP.SYRIN. IVP PRN (04:31)
[2017-02-08] MEDS: hydrALAZINE 20 MG/ML VIAL. IVP PRN (04:59)
[2017-02-08 05:13] LABS: BASO # 0.1 x10^3/uL (0.0-0.2); BASO % 1 % (0-3); EOS % 6 % (0-3); HEMATOCRIT 30.8 % (36.0-47.0); HEMOGLOBIN 10.4 g/dL (12.0-15.5); LYMPH # 1.5 x10^3/uL (1.0-4.8); LYMPH % 16 % (24-48); MEAN CORPUSCULAR HEMOGLOBIN 28 pg (25-35); MEAN CORPUSCULAR HGB CONC 34 g/dL (31-37); MEAN CORPUSCULAR VOLUME 82 fL (79-100); MONO % 8 % (0-9); NEUT % 70 % (31-73); PLATELET COUNT 268 x10^3/uL (140-400); RED BLOOD COUNT 3.74 x10^6/uL (3.50-5.40); RED CELL DISTRIBUTION WIDTH 14.1 % (11.5-14.5); WHITE BLOOD COUNT 9.5 x10^3/uL (4.0-11.0)
[2017-02-08 05:38] LABS: CALCIUM 8.3 mg/dL (8.5-10.1); GFR 53.9; POTASSIUM 4.3 mmol/L (3.5-5.1)
[2017-02-08 06:35] VITALS: BP 182/64
[2017-02-08 07:00] VITALS: BP 181/75
[2017-02-08] MEDS: POLYETHYLENE GLYCOL 3350 17 GM PACKET. PEG SCH (09:49)
[2017-02-08] MEDS: ENOXAPARIN 30 MG/0.3 ML DISP.SYRIN. SQ SCH (09:50)
[2017-02-08] MEDS: ASPIRIN 300 MG SUPP.RECT PR SCH (09:50)
[2017-02-08] MEDS ORDERED: ATOR40TA59 NG (10:54)
[2017-02-08] MEDS ORDERED: AMOX1TAB11 PO (10:54)
[2017-02-08] MEDS ORDERED: LISI-334 PO (10:58)
[2017-02-08 11:00] VITALS: BP 170/83
[2017-02-08] MEDS ORDERED: LISINOPRIL 20 MG TABLET PO SCH (11:00)
[2017-02-08] MEDS ORDERED: AMLODIPINE BESYLATE 10 MG TABLET PO SCH (11:00)
--- NOTE | 2017-02-08 11:18 | PDOC2 ---
PALLIATIVE CARE Palliative Care Note Palliative Care Patient alert. Attempts to communicate but difficult to understand Met with sons Antonio and Juanpablo. Reviewed current medical condition. Family not interested in feeding tube after review of medical condition and prognosis/risk for more strokes. Family considered [place] vs Home with Hospice. Family would like to take patient home with Hospice. No preference of agency. Confirmed Code Status; DNR/DNI Family requests no DME at this time Discussed pleasure feedings and importance of keeping her mouth clean and moist. Family understands risk of pleasure feedings.--aspiration/pneumonia and . SISI RAMÍREZ Feb 08, 2017 11:18
[2017-02-08] MEDS ORDERED: AMOXICILLIN/K CLAV 875/125MG TABLET. PO SCH (12:00)
--- NOTE | 2017-02-08 12:08 | PDOC ---
PROGRESS NOTES Assessment Problems Medical Problems: (1) CVA (cerebral vascular accident) Status: Acute Multiple subacute strokes, leading to [id number] state. Cardiac emboli suspected, but echocardiogram, transesophageal and transthoracic, negative for source and CTA shows no significant arterial stenosis. There is no evidence of vasculitis She has worsened over the past 2 days, now is unable to swallow Plan I hve increased her Lovenox dose Rehabilitation modalities Aspirin Prognosis is poor, I discussed with patient's son who favors a palliative care hospice approach as he absolutely does not want to her to have a feeding tube. He prefers hospice at home Discussed with case investigator and palliative care Follow-up with neurology as needed Subjective None Objective Vital Signs Date Time Temp Pulse Resp B/P Pulse Ox O2 Delivery O2 Flow Rate FiO2 02/08/17 08:00 Room Air 02/08/17 07:00 97.6 67 20 181/75 90 97.6 Intake and Output 02/08/17 07:00 Intake Total 703 ml Balance 703 ml Intake Oral 0 ml IV Total 703 ml # Voids 6 PHYSICAL EXAM Eyes closed. nonverbal, but she clearly says "thank you" when I tell her that she will be going home soon PERRL. EOMI. CN: no focal findings. Muscle tone: normal. Muscle strength: 4/5 DTR: 1+ Plantar reflex: flexor Gait: not examined in bed. Sensory exam: no abnormal findings. No cerebellar signs elicited. Review of Relevant I have reviewed the following items [email or web address] (where applicable) has been applied. Labs Laboratory Tests Test 02/06/17 14:20 02/07/17 03:46 02/08/17 04:45 Urine Color Yellow Urine Clarity Clear Urine pH 7.5 Urine Specific [place] 1.015 Urine Protein >=300mg/dL (NEG-TRACE) Urine Glucose (UA) Negativemg/dL (NEG) Urine Ketones (Stick) Tracemg/dL (NEG) Urine Blood Negative (NEG) Urine Nitrite Negative (NEG) Urine Bilirubin Negative (NEG) Urine Urobilinogen Dipstick 0.2mg/dL (0.2 mg/dL) Urine Leukocyte Esterase Negative (NEG) Urine RBC 0/HPF (0-2) Urine WBC Occ/HPF (0-4) Urine Squamous Epithelial Cells Occ/LPF Urine Amorphous Sediment Present/HPF Urine Bacteria 0/HPF (0-FEW) Urine Mucus Mod/LPF White Blood Count 12.1x10^3/uL (4.0-11.0) 9.5x10^3/uL (4.0-11.0) Red Blood Count 3.80x10^6/uL (3.50-5.40) 3.74x10^6/uL (3.50-5.40) Hemoglobin 10.5g/dL (12.0-15.5) 10.4g/dL (12.0-15.5) Hematocrit 31.0% (36.0-47.0) 30.8% (36.0-47.0) Mean Corpuscular Volume 82fL (79-100) 82fL (79-100) Mean Corpuscular Hemoglobin 28pg (25-35) 28pg (25-35) Mean Corpuscular Hemoglobin Concent 34g/dL (31-37) 34g/dL (31-37) Red Cell Distribution Width 14.2% (11.5-14.5) 14.1% (11.5-14.5) Platelet Count 263x10^3/uL (140-400) 268x10^3/uL (140-400) Neutrophils (%) (Auto) 77% (31-73) 70% (31-73) Lymphocytes (%) (Auto) 13% (24-48) 16% (24-48) Monocytes (%) (Auto) 8% (0-9) 8% (0-9) Eosinophils (%) (Auto) 1% (0-3) 6% (0-3) Basophils (%) (Auto) 1% (0-3) 1% (0-3) Neutrophils # (Auto) 9.4x10^3uL (1.8-7.7) 6.6x10^3uL (1.8-7.7) Lymphocytes # (Auto) 1.6x10^3/uL (1.0-4.8) 1.5x10^3/uL (1.0-4.8) Monocytes # (Auto) 0.9x10^3/uL (0.0-1.1) 0.7x10^3/uL (0.0-1.1) Eosinophils # (Auto) 0.2x10^3/uL (0.0-0.7) 0.6x10^3/uL (0.0-0.7) Basophils # (Auto) 0.1x10^3/uL (0.0-0.2) 0.1x10^3/uL (0.0-0.2) Sodium Level 141mmol/L (136-145) 139mmol/L (136-145) Potassium Level 3.7mmol/L (3.5-5.1) 4.3mmol/L (3.5-5.1) Chloride Level 106mmol/L (98-107) 104mmol/L (98-107) Carbon Dioxide Level 24mmol/L (21-32) 27mmol/L (21-32) Anion Gap 11 (6-14) 8 (6-14) Blood Urea Nitrogen 21mg/dL (7-20) 20mg/dL (7-20) Creatinine 1.0mg/dL (0.6-1.0) 1.0mg/dL (0.6-1.0) Estimated GFR (Cockcroft-Gault) 53.9 53.9 Glucose Level 147mg/dL (70-99) 129mg/dL (70-99) Calcium Level 8.7mg/dL (8.5-10.1) 8.3mg/dL (8.5-10.1) Laboratory Tests Test 02/08/17 04:45 White Blood Count 9.5x10^3/uL (4.0-11.0) Red Blood Count 3.74x10^6/uL (3.50-5.40) Hemoglobin 10.4g/dL (12.0-15.5) Hematocrit 30.8% (36.0-47.0) Mean Corpuscular Volume 82fL (79-100) Mean Corpuscular Hemoglobin 28pg (25-35) Mean Corpuscular Hemoglobin Concent 34g/dL (31-37) Red Cell Distribution Width 14.1% (11.5-14.5) Platelet Count 268x10^3/uL (140-400) Neutrophils (%) (Auto) 70% (31-73) Lymphocytes (%) (Auto) 16% (24-48) Monocytes (%) (Auto) 8% (0-9) Eosinophils (%) (Auto) 6% (0-3) Basophils (%) (Auto) 1% (0-3) Neutrophils # (Auto) 6.6x10^3uL (1.8-7.7) Lymphocytes # (Auto) 1.5x10^3/uL (1.0-4.8) Monocytes # (Auto) 0.7x10^3/uL (0.0-1.1) Eosinophils # (Auto) 0.6x10^3/uL (0.0-0.7) Basophils # (Auto) 0.1x10^3/uL (0.0-0.2) Sodium Level 139mmol/L (136-145) Potassium Level 4.3mmol/L (3.5-5.1) Chloride Level 104mmol/L (98-107) Carbon Dioxide Level 27mmol/L (21-32) Anion Gap 8 (6-14) Blood Urea Nitrogen 20mg/dL (7-20) Creatinine 1.0mg/dL (0.6-1.0) Estimated GFR (Cockcroft-Gault) 53.9 Glucose Level 129mg/dL (70-99) Calcium Level 8.3mg/dL (8.5-10.1) Microbiology 02/06/17 Blood Culture - Preliminary, Resulted NO GROWTH AFTER 1 DAY Medications Current Medications Aspirin 325 mg 325 mg [id number] PO Last administered on 02/03/17 08:35; Start 01/30/17 at 08:00; Stop 02/05/17 at 10:56; Status DC Sodium Chloride (Iv Sodium Chloride 0.9% 1000ml Bag) 1,000 ml @ 75 mls/hr [id number] IV Last administered on 02/03/17 11:11; Start 01/30/17 at 15:00; Stop 02/03/17 at 15:16; Status DC Sodium Chloride (Normal Saline Flush) 10 ml QSHIFT PRN IV AFTER MEDS AND BLOOD DRAWS; Start 01/30/17 at 15:15 Lidocaine HCl (Xylocaine 2% Topical 5gm Tube) 1 braydon 1X ONCE TP Last administered on 01/30/17 13:56; Start 01/30/17 at 15:15; Stop 01/30/17 at 15:16 ; Status DC Lidocaine HCl (Viscous Lidocaine) 15 ml 1X ONCE MM Last administered on 13:56; Start 01/30/17 at 15:15; Stop 01/30/17 at 15:16; Status DC Benzocaine (Hurricaine One) 1 spray 1X ONCE MM Last administered on 01/30/17 13:56; Start 01/30/17 at 15:15; Stop 01/30/17 at 15:16; Status DC Lidocaine HCl (Xylocaine 2% Topical 5gm Tube) 1 braydon 1X ONCE TP ; Start at 06:00; Stop 01/31/17 at 06:01; Status DC Lidocaine HCl (Viscous Lidocaine) 15 ml 1X ONCE MM ; Start 01/31/17 at 06:00; Stop 01/31/17 at 06:01; Status DC Benzocaine (Hurricaine One) 1 spray 1X ONCE MM Last administered on 01/31/17 13:56; Start 01/31/17 at 06:00; Stop 01/31/17 at 06:01; Status DC Lidocaine HCl (Viscous Lidocaine) 15 ml STK-MED ONCE .ROUTE ; Start 01/31/17 at 13:32; Stop 01/31/17 at 13:33; Status DC Benzocaine (Hurricaine One) 1 spray STK-MED ONCE .ROUTE ; Start 01/31/17 at 13: 32; Stop 01/31/17 at 13:33; Status DC Lidocaine HCl 30 braydon 30 braydon STK-MED ONCE TP ; Start 01/31/17 at 13:33; Stop at 13:34; Status DC Lactated Ringer's (Iv Lactated Ringers) 1,000 ml @ 75 mls/hr [id number] IV Last administered on 01/31/17 14:00; Start 01/31/17 at 14:45; Stop 02/01/17 at 23:46 ; Status DC Hydralazine HCl (Apresoline) 10 mg PRN Q4HRS PRN IVP ELEVATED BP, SEE COMMENTS Last administered on 02/08/17 04:59; Start 01/31/17 at 15:30 Metoprolol Tartrate (Lopressor) 12.5 mg BID PO Last administered on 01/31/17 17:24; Start 01/31/17 at 17:30; Stop 01/31/17 at 18:29; Status DC Metoprolol Tartrate (Lopressor) 25 mg BID PO ; Start 01/31/17 at 21:00; Stop at 21:00; Status DC Metoprolol Tartrate (Lopressor) 12.5 mg 1X ONCE PO Last administered on 19:00; Start 01/31/17 at 19:00; Stop 01/31/17 at 19:01; Status DC Metoprolol Tartrate (Lopressor) 25 mg BID PO Last administered on 02/02/17 08: 53; Start 02/01/17 at 09:00; Stop 02/02/17 at 10:16; Status DC Enoxaparin Sodium (Lovenox 30mg Syringe) 30 mg Q24H SQ Last administered on 08:39; Start 02/01/17 at 10:00; Stop 02/06/17 at 14:42; Status DC Metoprolol Tartrate (Lopressor) 50 mg BID PO Last administered on 02/03/17 22: 05; Start 02/02/17 at 21:00; Stop 02/04/17 at 07:58; Status DC Amlodipine Besylate (Norvasc) 5 mg DAILY PO Last administered on 02/03/17 08: 36; Start 02/02/17 at 10:30; Stop 02/04/17 at 07:15; Status DC Acetaminophen (Tylenol) 325 mg PRN Q4HRS PRN PO MILD PAIN / TEMP Last administered on 02/03/17 15:44; Start 02/02/17 at 10:45; Stop 02/06/17 at 03:45 ; Status DC Bisacodyl (Dulcolax Tab) 10 mg PRN DAILY PRN PO CONSTIPATION Last administered on 02/03/17 15:44; Start 02/03/17 at 09:45 Magnesium Hydroxide (Milk Of Magnesia) 2,400 mg PRN DAILY PRN PO CONSTIPATION Last administered on 02/03/17 11:03; Start 02/03/17 at 09:45 Senna/Docusate Sodium (Senna Plus) 1 tab PRN BID PRN PO CONSTIPATION Last administered on 02/03/17 11:03; Start 02/03/17 at 09:45 Ondansetron HCl (Zofran) 4 mg PRN Q6HRS PRN IV NAUSEA/VOMITING Last administered on 02/03/17 11:29; Start 02/03/17 at 11:30 Amlodipine Besylate (Norvasc) 5 mg 1X ONCE PO Last administered on 02/03/17 12:52; Start 02/03/17 at 11:45; Stop 02/03/17 at 11:46; Status DC Lisinopril (Prinivil) 10 mg DAILY PO Last administered on 02/03/17 15:44; Start 02/03/17 at 15:30; Stop 02/04/17 at 07:18; Status DC Amlodipine Besylate (Norvasc) 10 mg DAILY PO ; Start 02/04/17 at 09:00; Stop at 11:19; Status DC Lisinopril (Prinivil) 20 mg DAILY PO ; Start 02/04/17 at 09:00; Stop 02/04/17 at 09:00; Status DC Metoprolol Tartrate (Lopressor) 5 mg Q6HRS IVP Last administered on 02/05/17 11:59; Start 02/04/17 at 08:30; Stop 02/05/17 at 14:27; Status DC Enalaprilat 2.5 mg 2.5 mg Q6HRS IV Last administered on 02/05/17 06:05; Start 02/04/17 at 08:30; Stop 02/05/17 at 09:36; Status DC Sodium Chloride (Iv Sodium Chloride 0.9% 1000ml Bag) 1,000 ml @ 75 mls/hr [id number] IV Last administered on 02/05/17 06:07; Start 02/04/17 at 18:00; Stop 02/05/17 at 14:27; Status DC Enalaprilat (Vasotec) 5 mg Q6HRS IV Last administered on 02/06/17 05:56; Start 02/05/17 at 12:00; Stop 02/06/17 at 09:35; Status DC Aspirin 300 mg [address] Last administered on 02/08/17 09:50; Start at 09:00 Amino Acids/ Electrolytes (Clinimix E 2.75%-5% Solution) 2,000 ml @ 80 mls/hr Q24H IV Last administered on 02/07/17 10:36; Start 02/05/17 at 15:00 Docusate Sodium (Enemeez) [address]N [address] CONSTIPATION; Start 02/05/17 at 14:30 Sodium Biphosphate/ Sodium Phosphate (Fleet Adult) 133 ml PRN DAILY PRN CT CONSTIPATION Last administered on 02/05/17 18:12; Start 02/05/17 at 14:30 Acetaminophen (Tylenol) [address]N Q[address]RS [address] MILD PAIN / TEMP Last administered on 02/07/17 12:53; Start 02/06/17 at 03:45 Metoprolol Tartrate (Lopressor) 5 mg Q6HRS IVP Last administered on 02/06/17 10:38; Start 02/06/17 at 10:00; Stop 02/06/17 at 11:19; Status DC Enalaprilat (Vasotec) 10 mg Q6HRS IV ; Start 02/06/17 at 12:00; Stop 02/06/17 at 12:00; Status DC Metoprolol Tartrate (Lopressor) 10 mg Q6HRS IVP ; Start 02/06/17 at 12:00; Status Cancel Amlodipine Besylate (Norvasc) 10 mg DAILY NG ; Start 02/07/17 at 09:00; Stop at 09:00; Status DC Lisinopril (Prinivil) 40 mg DAILY NG Last administered on 02/06/17 14:26; Start 02/06/17 at 12:00; Stop 02/06/17 at 15:25; Status DC Polyethylene Glycol (miraLAX PACKET) 17 gm DAILY PEG Last administered on 14:24; Start 02/06/17 at 15:00 Labetalol HCl (Normodyne) 20 mg PRN Q2HR PRN IVP HYPERTENSION, SEE COMMENTS Last administered on 02/08/17 04:31; Start 02/06/17 at 13:00 Hydralazine HCl (Apresoline) 50 mg TID NG Last administered on 02/06/17 14:41 ; Start 02/06/17 at 14:00; Stop 02/06/17 at 15:25; Status DC Atorvastatin Calcium (Lipitor) 40 mg QHS NG Last administered on 02/06/17 21: 21; Start 02/06/17 at 21:00 Enoxaparin Sodium (Lovenox 30mg Syringe) 30 mg Q12HR SQ Last administered on 09:50; Start 02/06/17 at 21:00 Iohexol (Omnipaque 350 Mg/ml) 60 ml 1X ONCE IV Last administered on 02/06/17 15:18; Start 02/06/17 at 15:00; Stop 02/06/17 at 15:01; Status DC Info 1 each 1 each PRN DAILY PRN MC SEE COMMENTS; Start 02/06/17 at 15:00; Stop 02/08/17 at 14:59 Piperacillin Sod/ Tazobactam Sod/ Sodium Chloride (Zosyn/Iv Sodium Chloride 0.9 % 50ml) 50 ml @ 100 mls/hr Q6HRS IV Last administered on 02/08/17 05:00; Start 02/07/17 at 12:30; Stop 02/08/17 at 10:49; Status DC Piperacillin Sod/ Tazobactam Sod (Zosyn Per Pharmacy) 1 each PRN DAILY PRN MC SEE COMMENTS; Start 02/07/17 at 12:30 Amoxicillin/ Clavulanate Potassium (Augmentin 875/ 125mg) 1 tab BID PO ; Start 02/08/17 at 12:00 Amlodipine Besylate (Norvasc) 10 mg DAILY PO ; Start 02/08/17 at 11:00 Lisinopril (Prinivil) 20 mg DAILY PO ; Start 02/08/17 at 11:00 Active Scripts Active Lisinopril 20 Mg Tablet 20 Mg PO DAILY 30 Days Atorvastatin Calcium 40 Mg Tablet 40 Mg NG QHS 30 Days Amox Tr-K Clv 875-125 Mg Tab (Amoxicillin/Potassium Clav) 1 Each Tablet 1 Tab PO BID 5 Days Reported Aspirin 325 Mg Tablet 1 Tab PO DAILY Amlodipine Besylate 10 Mg Tablet 10 Mg PO DAILY Vitals/I & O Vital Sign - Last 24 Hours 02/07/17 02/07/17 02/07/17 02/07/17 15:00 15:07 19:54 20:00 Temp 99.5 97.7 99.5 97.7 Pulse 85 85 78 Resp 18 18 B/P 209/67 209/67 157/94 Pulse Ox 92 97 O2 Delivery Room Air Room Air Room Air 02/07/17 02/08/17 02/08/17 02/08/17 22:52 02:32 04:31 04:59 Temp 98.2 98.1 98.2 98.1 Pulse 79 76 76 69 Resp 18 18 B/P 180/82 191/82 191/82 202/70 Pulse Ox 95 96 O2 Delivery Room Air Room Air 02/08/17 02/08/17 02/08/17 06:35 07:00 08:00 Temp 97.6 97.6 Pulse 69 67 Resp 20 B/P 182/64 181/75 Pulse Ox 90 O2 Delivery Aerosol Mask Room Air Room Air Intake and Output 02/07/17 02/07/17 02/08/17 15:00 23:00 07:00 Intake Total 703 ml 0 ml Balance 703 ml 0 ml YFN MADDOX MD Feb 08, 2017 12:08
--- NOTE | 2017-02-08 12:26 | PDOC3 ---
Discharge Summary [facility] Date of Admission: Jan 29, 2017 Discharge Date: Feb 08, 2017 Admitting Diagnosis Accelerate HTN Dysphagia with bl stroke Multiple subacute infarcts right frontal lobe and left temporal lobe. Physical Debility due to above Vascular Dementia worsening. Constipation HLD FEVER with possible asp PNA sepsis with possible asp pna acute mental status change with bl stroke Problems: Final Diagnosis CONSULTS neuro Brief Hospital Course Ms. Gupta is a 76 old [place] woman was sent for left side weakness, she was found HTN urgency, bl brain ischemic stroke, normal Echo and cta. Pt deteriorates in a few days, then cannot talk as before, not follow commands or stand up, failed swallow eval, HTN still very high. Repeat MRI showed worsening bl stroke. PAT consulted, family decides home hospice, no feeding tube, only for pleasure. if swallow improve, can take po meds, prescription given. dc time 40min. General: Alert,not talk or follow commands Heart: Regular rate, Normal S1, Normal S2 Lungs: Clear Abdomen: Normal bowel sounds, Soft Extremities: No clubbing, No edema Problems: Disposition home hospice CONDITION AT DISCHARGE: Stable Diet feed for pleasure Scheduled Amlodipine Besylate (Amlodipine Besylate) 10 MG PO DAILY (Reported) Amoxicillin/Potassium Clav (Amox Tr-K Clv 875-125 Mg Tab) 1 TAB PO BID Aspirin (Aspirin) 1 TAB PO DAILY (Reported) Atorvastatin Calcium (Atorvastatin Calcium) 40 MG NG QHS Lisinopril (Lisinopril) 20 MG PO DAILY Discontinued Medications Metoprolol Tartrate (Metoprolol Tartrate) 1 TAB PO DAILY (Reported) Follow Up hospice TEDDY BRIZUELA MD Feb 08, 2017 12:26
--- NOTE | 2017-02-08 14:02 | PDOC ---
Objective: Objective: Reviewed notes - to DC home w/ Hospice. Vital Signs: Vital Signs Date Time Temp Pulse Resp B/P Pulse Ox O2 Delivery O2 Flow Rate FiO2 02/08/17 11:00 98.6 68 18 170/83 95 Room Air 98.6 Labs: Laboratory Tests Test 02/08/17 04:45 White Blood Count 9.5x10^3/uL Red Blood Count 3.74x10^6/uL Hemoglobin 10.4g/dL Hematocrit 30.8% Mean Corpuscular Volume 82fL Mean Corpuscular Hemoglobin 28pg Mean Corpuscular Hemoglobin Concent 34g/dL Red Cell Distribution Width 14.1% Platelet Count 268x10^3/uL Neutrophils (%) (Auto) 70% Lymphocytes (%) (Auto) 16% Monocytes (%) (Auto) 8% Eosinophils (%) (Auto) 6% Basophils (%) (Auto) 1% Neutrophils # (Auto) 6.6x10^3uL Lymphocytes # (Auto) 1.5x10^3/uL Monocytes # (Auto) 0.7x10^3/uL Eosinophils # (Auto) 0.6x10^3/uL Basophils # (Auto) 0.1x10^3/uL Sodium Level 139mmol/L Potassium Level 4.3mmol/L Chloride Level 104mmol/L Carbon Dioxide Level 27mmol/L Anion Gap 8 Blood Urea Nitrogen 20mg/dL Creatinine 1.0mg/dL Estimated GFR (Cockcroft-Gault) 53.9 Glucose Level 129mg/dL Calcium Level 8.3mg/dL PE: GEN: NAD LUNGS: CTAB HEART: RRR ABD: NABS, S/ND/NT NEURO/PSYCH: mumbles A/P: Constipation H/o multiple strokes w/ dementia -- Agree w/ plans to DC w/ Hospice. MIGUELINA YBARRA Feb 08, 2017 14:01 MARYANN PALOMO MD Feb 08, 2017 14:06
[2017-02-08] MEDS: AA 2.75%/CALCIUM/LYTES/D5W 2,000 ML IV SCH (15:07)
[2017-02-08 15:27] VITALS: BP 165/83
--- NOTE | 2017-02-08 15:39 | PDOC ---
PROGRESS NOTES Subjective Subjective She wants to eat. Objective Objective Vital Signs Date Time Temp Pulse Resp B/P Pulse Ox O2 Delivery O2 Flow Rate FiO2 02/08/17 15:27 98.6 68 18 165/83 98 Room Air 98.6 01/31/17 14:08 2 Intake and Output 02/08/17 07:00 Intake Total 703 ml Balance 703 ml Intake Oral 0 ml IV Total 703 ml # Voids 6 Physical Exam Physical Exam She is more awake and I spoke to speech pathology who felt that she is not safe to eat. Assessment Assessment Problems Medical Problems: (1) CVA (cerebral vascular accident) Status: Acute Plan Plan of Care Agree with plans for home with hospice and pleasure feeds. Comment Review of Relevant I have reviewed the following items [email or web address] (where applicable) has been applied. Labs Laboratory Tests Test 02/07/17 03:46 02/08/17 04:45 White Blood Count 12.1x10^3/uL (4.0-11.0) 9.5x10^3/uL (4.0-11.0) Red Blood Count 3.80x10^6/uL (3.50-5.40) 3.74x10^6/uL (3.50-5.40) Hemoglobin 10.5g/dL (12.0-15.5) 10.4g/dL (12.0-15.5) Hematocrit 31.0% (36.0-47.0) 30.8% (36.0-47.0) Mean Corpuscular Volume 82fL (79-100) 82fL (79-100) Mean Corpuscular Hemoglobin 28pg (25-35) 28pg (25-35) Mean Corpuscular Hemoglobin Concent 34g/dL (31-37) 34g/dL (31-37) Red Cell Distribution Width 14.2% (11.5-14.5) 14.1% (11.5-14.5) Platelet Count 263x10^3/uL (140-400) 268x10^3/uL (140-400) Neutrophils (%) (Auto) 77% (31-73) 70% (31-73) Lymphocytes (%) (Auto) 13% (24-48) 16% (24-48) Monocytes (%) (Auto) 8% (0-9) 8% (0-9) Eosinophils (%) (Auto) 1% (0-3) 6% (0-3) Basophils (%) (Auto) 1% (0-3) 1% (0-3) Neutrophils # (Auto) 9.4x10^3uL (1.8-7.7) 6.6x10^3uL (1.8-7.7) Lymphocytes # (Auto) 1.6x10^3/uL (1.0-4.8) 1.5x10^3/uL (1.0-4.8) Monocytes # (Auto) 0.9x10^3/uL (0.0-1.1) 0.7x10^3/uL (0.0-1.1) Eosinophils # (Auto) 0.2x10^3/uL (0.0-0.7) 0.6x10^3/uL (0.0-0.7) Basophils # (Auto) 0.1x10^3/uL (0.0-0.2) 0.1x10^3/uL (0.0-0.2) Sodium Level 141mmol/L (136-145) 139mmol/L (136-145) Potassium Level 3.7mmol/L (3.5-5.1) 4.3mmol/L (3.5-5.1) Chloride Level 106mmol/L (98-107) 104mmol/L (98-107) Carbon Dioxide Level 24mmol/L (21-32) 27mmol/L (21-32) Anion Gap 11 (6-14) 8 (6-14) Blood Urea Nitrogen 21mg/dL (7-20) 20mg/dL (7-20) Creatinine 1.0mg/dL (0.6-1.0) 1.0mg/dL (0.6-1.0) Estimated GFR (Cockcroft-Gault) 53.9 53.9 Glucose Level 147mg/dL (70-99) 129mg/dL (70-99) Calcium Level 8.7mg/dL (8.5-10.1) 8.3mg/dL (8.5-10.1) Laboratory Tests Test 02/08/17 04:45 White Blood Count 9.5x10^3/uL (4.0-11.0) Red Blood Count 3.74x10^6/uL (3.50-5.40) Hemoglobin 10.4g/dL (12.0-15.5) Hematocrit 30.8% (36.0-47.0) Mean Corpuscular Volume 82fL (79-100) Mean Corpuscular Hemoglobin 28pg (25-35) Mean Corpuscular Hemoglobin Concent 34g/dL (31-37) Red Cell Distribution Width 14.1% (11.5-14.5) Platelet Count 268x10^3/uL (140-400) Neutrophils (%) (Auto) 70% (31-73) Lymphocytes (%) (Auto) 16% (24-48) Monocytes (%) (Auto) 8% (0-9) Eosinophils (%) (Auto) 6% (0-3) Basophils (%) (Auto) 1% (0-3) Neutrophils # (Auto) 6.6x10^3uL (1.8-7.7) Lymphocytes # (Auto) 1.5x10^3/uL (1.0-4.8) Monocytes # (Auto) 0.7x10^3/uL (0.0-1.1) Eosinophils # (Auto) 0.6x10^3/uL (0.0-0.7) Basophils # (Auto) 0.1x10^3/uL (0.0-0.2) Sodium Level 139mmol/L (136-145) Potassium Level 4.3mmol/L (3.5-5.1) Chloride Level 104mmol/L (98-107) Carbon Dioxide Level 27mmol/L (21-32) Anion Gap 8 (6-14) Blood Urea Nitrogen 20mg/dL (7-20) Creatinine 1.0mg/dL (0.6-1.0) Estimated GFR (Cockcroft-Gault) 53.9 Glucose Level 129mg/dL (70-99) Calcium Level 8.3mg/dL (8.5-10.1) Microbiology 02/06/17 Blood Culture - Preliminary, Resulted NO GROWTH AFTER 2 DAYS Medications Current Medications Aspirin 325 mg 325 mg [id number] PO Last administered on 02/03/17t 08:35; Start 01/30/17 at 08:00; Stop 02/05/17 at 10:56; Status DC Sodium Chloride (Iv Sodium Chloride 0.9% 1000ml Bag) 1,000 ml @ 75 mls/hr [id number] IV Last administered on 02/03/17 11:11; Start 01/30/17 at 15:00; Stop 02/03/17 at 15:16; Status DC Sodium Chloride (Normal Saline Flush) 10 ml QSHIFT PRN IV AFTER MEDS AND BLOOD DRAWS; Start 01/30/17 at 15:15 Lidocaine HCl (Xylocaine 2% Topical 5gm Tube) 1 braydon 1X ONCE TP Last administered on 01/30/17 13:56; Start 01/30/17 at 15:15; Stop 01/30/17 at 15:16 ; Status DC Lidocaine HCl (Viscous Lidocaine) 15 ml 1X ONCE MM Last administered on 13:56; Start 01/30/17 at 15:15; Stop 01/30/17 at 15:16; Status DC Benzocaine (Hurricaine One) 1 spray 1X ONCE MM Last administered on 01/30/17 13:56; Start 01/30/17 at 15:15; Stop 01/30/17 at 15:16; Status DC Lidocaine HCl (Xylocaine 2% Topical 5gm Tube) 1 braydon 1X ONCE TP ; Start at 06:00; Stop 01/31/17 at 06:01; Status DC Lidocaine HCl (Viscous Lidocaine) 15 ml 1X ONCE MM ; Start 01/31/17 at 06:00; Stop 01/31/17 at 06:01; Status DC Benzocaine (Hurricaine One) 1 spray 1X ONCE MM Last administered on 01/31/17 13:56; Start 01/31/17 at 06:00; Stop 01/31/17 at 06:01; Status DC Lidocaine HCl (Viscous Lidocaine) 15 ml STK-MED ONCE .ROUTE ; Start 01/31/17 at 13:32; Stop 01/31/17 at 13:33; Status DC Benzocaine (Hurricaine One) 1 spray STK-MED ONCE .ROUTE ; Start 01/31/17 at 13: 32; Stop 01/31/17 at 13:33; Status DC Lidocaine HCl 30 braydon 30 braydon STK-MED ONCE TP ; Start 01/31/17 at 13:33; Stop at 13:34; Status DC Lactated Ringer's (Iv Lactated Ringers) 1,000 ml @ 75 mls/hr [id number] IV Last administered on 01/31/17 14:00; Start 01/31/17 at 14:45; Stop 02/01/17 at 23:46 ; Status DC Hydralazine HCl (Apresoline) 10 mg PRN Q4HRS PRN IVP ELEVATED BP, SEE COMMENTS Last administered on 02/08/17 04:59; Start 01/31/17 at 15:30 Metoprolol Tartrate (Lopressor) 12.5 mg BID PO Last administered on 01/31/17 17:24; Start 01/31/17 at 17:30; Stop 01/31/17 at 18:29; Status DC Metoprolol Tartrate (Lopressor) 25 mg BID PO ; Start 01/31/17 at 21:00; Stop at 21:00; Status DC Metoprolol Tartrate (Lopressor) 12.5 mg 1X ONCE PO Last administered on 19:00; Start 01/31/17 at 19:00; Stop 01/31/17 at 19:01; Status DC Metoprolol Tartrate (Lopressor) 25 mg BID PO Last administered on 02/02/17 08: 53; Start 02/01/17 at 09:00; Stop 02/02/17 at 10:16; Status DC Enoxaparin Sodium (Lovenox 30mg Syringe) 30 mg Q24H SQ Last administered on 08:39; Start 02/01/17 at 10:00; Stop 02/06/17 at 14:42; Status DC Metoprolol Tartrate (Lopressor) 50 mg BID PO Last administered on 02/03/17 22: 05; Start 02/02/17 at 21:00; Stop 02/04/17 at 07:58; Status DC Amlodipine Besylate (Norvasc) 5 mg DAILY PO Last administered on 02/03/17 08: 36; Start 02/02/17 at 10:30; Stop 02/04/17 at 07:15; Status DC Acetaminophen (Tylenol) 325 mg PRN Q4HRS PRN PO MILD PAIN / TEMP Last administered on 02/03/17 15:44; Start 02/02/17 at 10:45; Stop 02/06/17 at 03:45 ; Status DC Bisacodyl (Dulcolax Tab) 10 mg PRN DAILY PRN PO CONSTIPATION Last administered on 02/03/17 15:44; Start 02/03/17 at 09:45 Magnesium Hydroxide (Milk Of Magnesia) 2,400 mg PRN DAILY PRN PO CONSTIPATION Last administered on 02/03/17 11:03; Start 02/03/17 at 09:45 Senna/Docusate Sodium (Senna Plus) 1 tab PRN BID PRN PO CONSTIPATION Last administered on 02/03/17 11:03; Start 02/03/17 at 09:45 Ondansetron HCl (Zofran) 4 mg PRN Q6HRS PRN IV NAUSEA/VOMITING Last administered on 02/03/17 11:29; Start 02/03/17 at 11:30 Amlodipine Besylate (Norvasc) 5 mg 1X ONCE PO Last administered on 02/03/17 12:52; Start 02/03/17 at 11:45; Stop 02/03/17 at 11:46; Status DC Lisinopril (Prinivil) 10 mg DAILY PO Last administered on 02/03/17 15:44; Start 02/03/17 at 15:30; Stop 02/04/17 at 07:18; Status DC Amlodipine Besylate (Norvasc) 10 mg DAILY PO ; Start 02/04/17 at 09:00; Stop at 11:19; Status DC Lisinopril (Prinivil) 20 mg DAILY PO ; Start 02/04/17 at 09:00; Stop 02/04/17 at 09:00; Status DC Metoprolol Tartrate (Lopressor) 5 mg Q6HRS IVP Last administered on 02/05/17 11:59; Start 02/04/17 at 08:30; Stop 02/05/17 at 14:27; Status DC Enalaprilat 2.5 mg 2.5 mg Q6HRS IV Last administered on 02/05/17 06:05; Start 02/04/17 at 08:30; Stop 02/05/17 at 09:36; Status DC Sodium Chloride (Iv Sodium Chloride 0.9% 1000ml Bag) 1,000 ml @ 75 mls/hr [id number] IV Last administered on 02/05/17 06:07; Start 02/04/17 at 18:00; Stop 02/05/17 at 14:27; Status DC Enalaprilat (Vasotec) 5 mg Q6HRS IV Last administered on 02/06/17 05:56; Start 02/05/17 at 12:00; Stop 02/06/17 at 09:35; Status DC Aspirin 300 mg 300 mg DAILY OR Last administered on 02/08/17 09:50; Start at 09:00 Amino Acids/ Electrolytes (Clinimix E 2.75%-5% Solution) 2,000 ml @ 80 mls/hr Q24H IV Last administered on 02/07/17 10:36; Start 02/05/17 at 15:00 Docusate Sodium (Enemeez) 283 mg PRN DAILY PRN OR CONSTIPATION; Start 02/05/17 at 14:30 Sodium Biphosphate/ Sodium Phosphate (Fleet Adult) 133 ml PRN DAILY PRN OR CONSTIPATION Last administered on 02/05/17 18:12; Start 02/05/17 at 14:30 Acetaminophen (Tylenol) 650 mg PRN Q6HRS PRN OR MILD PAIN / TEMP Last administered on 02/07/17 12:53; Start 02/06/17 at 03:45 Metoprolol Tartrate (Lopressor) 5 mg Q6HRS IVP Last administered on 02/06/17 10:38; Start 02/06/17 at 10:00; Stop 02/06/17 at 11:19; Status DC Enalaprilat (Vasotec) 10 mg Q6HRS IV ; Start 02/06/17 at 12:00; Stop 02/06/17 at 12:00; Status DC Metoprolol Tartrate (Lopressor) 10 mg Q6HRS IVP ; Start 02/06/17 at 12:00; Status Cancel Amlodipine Besylate (Norvasc) 10 mg DAILY NG ; Start 02/07/17 at 09:00; Stop at 09:00; Status DC Lisinopril (Prinivil) 40 mg DAILY NG Last administered on 02/06/17 14:26; Start 02/06/17 at 12:00; Stop 02/06/17 at 15:25; Status DC Polyethylene Glycol (miraLAX PACKET) 17 gm DAILY PEG Last administered on 14:24; Start 02/06/17 at 15:00 Labetalol HCl (Normodyne) 20 mg PRN Q2HR PRN IVP HYPERTENSION, SEE COMMENTS Last administered on 02/08/17 04:31; Start 02/06/17 at 13:00 Hydralazine HCl (Apresoline) 50 mg TID NG Last administered on 02/06/17 14:41 ; Start 02/06/17 at 14:00; Stop 02/06/17 at 15:25; Status DC Atorvastatin Calcium (Lipitor) 40 mg QHS NG Last administered on 02/06/17 21: 21; Start 02/06/17 at 21:00 Enoxaparin Sodium (Lovenox 30mg Syringe) 30 mg Q12HR SQ Last administered on 09:50; Start 02/06/17 at 21:00 Iohexol (Omnipaque 350 Mg/ml) 60 ml 1X ONCE IV Last administered on 02/06/17 15:18; Start 02/06/17 at 15:00; Stop 02/06/17 at 15:01; Status DC Info 1 each 1 each PRN DAILY PRN MC SEE COMMENTS; Start 02/06/17 at 15:00; Stop 02/08/17 at 14:59; Status DC Piperacillin Sod/ Tazobactam Sod/ Sodium Chloride (Zosyn/Iv Sodium Chloride 0.9 % 50ml) 50 ml @ 100 mls/hr Q6HRS IV Last administered on 02/08/17 05:00; Start 02/07/17 at 12:30; Stop 02/08/17 at 10:49; Status DC Piperacillin Sod/ Tazobactam Sod (Zosyn Per Pharmacy) 1 each PRN DAILY PRN MC SEE COMMENTS; Start 02/07/17 at 12:30; Stop 02/08/17 at 14:20; Status DC Amoxicillin/ Clavulanate Potassium (Augmentin 875/ 125mg) 1 tab BID PO ; Start 02/08/17 at 12:00 Amlodipine Besylate (Norvasc) 10 mg DAILY PO ; Start 02/08/17 at 11:00 Lisinopril (Prinivil) 20 mg DAILY PO ; Start 02/08/17 at 11:00 Active Scripts Active Lisinopril 20 Mg Tablet 20 Mg PO DAILY 30 Days Atorvastatin Calcium 40 Mg Tablet 40 Mg NG QHS 30 Days Amox Tr-K Clv 875-125 Mg Tab (Amoxicillin/Potassium Clav) 1 Each Tablet 1 Tab PO BID 5 Days Reported Aspirin 325 Mg Tablet 1 Tab PO DAILY Amlodipine Besylate 10 Mg Tablet 10 Mg PO DAILY Vitals/I & O Vital Sign - Last 24 Hours 02/07/17 02/07/17 02/07/17 02/08/17 19:54 20:00 22:52 02:32 Temp 97.7 98.2 98.1 97.7 98.2 98.1 Pulse 78 79 76 Resp 18 18 18 B/P 157/94 180/82 191/82 Pulse Ox 97 95 96 O2 Delivery Room Air Room Air Room Air Room Air 02/08/17 02/08/17 02/08/17 02/08/17 04:31 04:59 06:35 07:00 Temp 97.6 97.6 Pulse 76 69 69 67 Resp 20 B/P 191/82 202/70 182/64 181/75 Pulse Ox 90 O2 Delivery Aerosol Mask Room Air 02/08/17 02/08/17 02/08/17 08:00 11:00 15:27 Temp 98.6 98.6 98.6 98.6 Pulse 68 68 Resp 18 18 B/P 170/83 165/83 Pulse Ox 95 98 O2 Delivery Room Air Room Air Room Air Intake and Output 02/07/17 02/07/17 02/08/17 15:00 23:00 07:00 Intake Total 703 ml 0 ml Balance 703 ml 0 ml DANI NAYLOR MD Feb 08, 2017 15:38
== END 2017-02-08 15:45 | disposition hospice, home (50) | DRG 64 ==
LOC: 6 SOUTH 16:22
PROVIDERS: ADMIT Internal Medicine; ATTEND Internal Medicine
DX: I63.9 Cerebral infarction, unspecified (principal); G93.41 Metabolic encephalopathy; E78.5 Hyperlipidemia, unspecified; F01.50 Vascular dementia, unspecified severity, without behavioral disturbance, psychotic disturbance, mood disturbance, and anxiety; H54.0 Blindness, both eyes; I10 Essential (primary) hypertension; I16.0 Hypertensive urgency; I25.10 Atherosclerotic heart disease of native coronary artery without angina pectoris; Z85.43 Personal history of malignant neoplasm of ovary; Z90.721 Acquired absence of ovaries, unilateral; Z89.011 Acquired absence of right thumb; Z66 Do not resuscitate; Z51.5 Encounter for palliative care
CPT/HCPCS: 36415; 70496; 70498; 70551; 71010; 73501; 73560; 74000; 74022; 76376; 80048; 80053; 80061; 81001; 82607; 82746; 84443; 85027; 85651; 87040; 93312; 93325; J0360; J1650; J2405; J2543; J3490; J7030; J7120; Q9967; 92526; 92610; 97110; 97116; 97530; 97535